=== PATIENT | male | born 1940 | race Hispanic/Latino ===

== ENCOUNTER 2016-08-23 10:52 | Inpatient (IN) | payer MEDICARE ==
[2016-08-23 11:21] LABS: BASO # 0.1 K/uL (0.0-0.2); BASO % 0.6 % (0.0-2.0); EOS # 0.1 K/uL (0.0-0.7); EOS % 0.9 % (0.0-4.0); LYMPH # 0.5 K/uL (1.0-4.3); LYMPH % 5.2 % (20.0-40.0); MEAN CELL VOLUME 95.7 fL (80.0-94.0); MEAN CORPUSCULAR HEMOGLOBIN 31.5 pg (27.0-31.0); MEAN CORPUSCULAR HGB CONC 32.9 g/dL (33.0-37.0); MEAN PLATELET VOLUME 7.9 fL (7.2-11.7); MONO # 1.2 K/uL (0.0-0.8); MONO % 12.2 % (0.0-10.0); NRBC % 0.1 % (0.0-2.0); PLATELET COUNT 189 K/uL (130-400); RED CELL DISTRIBUTION WIDTH 16.8 % (11.5-14.5); WHITE BLOOD COUNT 9.4 K/uL (4.8-10.8)
[2016-08-23 11:38] LABS: CHLORIDE 113 mmol/L (98-107); POTASSIUM 4.7 mmol/L (3.6-5.2); SODIUM 141 mmol/L (132-148)
[2016-08-23 11:40] LABS: BILIRUBIN,TOTAL < 0.1 mg/dL (0.2-1.3); GFR AFRICAN-AMERICAN 9
[2016-08-23 11:41] LABS: ALKALINE PHOSPHATASE 92 U/L (38-126); ALT/SGPT 39 U/L (21-72); AST/SGOT 26 U/L (17-59); CALCIUM 7.7 mg/dl (8.6-10.4); GLUCOSE,RANDOM 91 mg/dL (75-110); TOTAL PROTEIN 7.6 g/dL (6.3-8.3)
--- NOTE | 2016-08-23 11:53 | C.PDOC ---
History Of Present Illness 76-year-old male, presents to the emergency department with complaints of new onset, worsening shortness of breath and dyspnea on exertion since 05/02. Patient notes that symptoms resolve with rest. States he feels better with current O2 use. No associated chest pain. Patient has new onset bilateral leg swelling to knees, that is worse during the day. Patient denies fever. No PMD or prior evaluation. Patient notes a Hx of smoking, but has quit. No current medications. NEW ONSET, WORSENING SOB/RAMIREZ SINCE 04/2016. RESOLVES W REST. FEELS BETTER W CURRENT O2 USE. NO ASSOC CP. +NEW ONSET B/L LEG SWELL TO KNEES, WORSE DURING DAY. NO FEVER, NO PMD NO PRIOR MD KHAN FOR SAME. HO SMOKING, QUIT. NO CURRENT MEDS USE EXAM MOD DIST NONTOXIC R>L RALES TACHYPNEA SPEAKING FULL SENTENCES CV RRR 3+PITTING EDEMA REMAINDER NEG Time Seen by Provider: 08/23/16 11:28 Chief Complaint (Nursing): Shortness Of Breath History Per: Patient History/Exam Limitations: no limitations Past Medical History Reviewed: Historical Data, Nursing Documentation, Vital Signs Vital Signs: Last Vital Signs Temp 97.4 F L 08/23/16 10:57 Pulse 101 H 08/23/16 10:57 Resp 18 08/23/16 12:21 BP 167/70 H 08/23/16 10:57 Pulse Ox 98 08/23/16 13:53 - Medical History PMH: TIA Family History: States: Unknown Family Hx - Social History Hx Alcohol Use: No Hx Substance Use: No Review Of Systems Except As Marked, All Systems Reviewed And Found Negative. Constitutional: Negative for: Fever, Chills Cardiovascular: Positive for: Chest Pain, Edema Respiratory: Positive for: Shortness of Breath Gastrointestinal: Negative for: Nausea, Vomiting Skin: Negative for: Rash Neurological: Negative for: Weakness, Numbness, Headache, Dizziness Physical Exam - Physical Exam Appears: Non-toxic, No Acute Distress Skin: Warm, Dry, No Rash Head: Atraumatic, Normacephalic Eye(s): bilateral: Normal Inspection, PERRL Nose: Normal Oral Mucosa: Moist Lips: Normal Appearing Neck: Normal ROM Cardiovascular: Rhythm Regular, Other Respiratory: Rales, Other (R>L RALES TACHYPNEA SPEAKING FULL SENTENCES) Extremity: Pedal Edema (Edema) Neurological/Psych: Oriented x3, Normal Speech ED Course And Treatment - Laboratory Results Result Diagrams: 08/23/16 11:14 08/23/16 11:14 ECG: Interpreted By Me ECG Rhythm: Sinus Rhythm ECG Interpretation: Normal Rate From EC O2 Sat by Pulse Oximetry: 98 Pulse Ox Interpretation: Normal - Radiology CXR: Interpreted by Me CXR Interpretation: Yes: Other (chf) Progress - Re-Evaluation Re-evaluation Note: 08/23/16 12:39 BLADDER SCAN >1L. PS "I HAVE A PROSTATE PROBLEM". +FREQ URINATION. EXAM UNCH PRIOR. PERSIST TACHYPNEA BUT SPEAKING FULL SENTENCES WO DIFFICULTY ON VAPOTHERM. PENDING CALLBACK NEPHROLOGY 08/23/16 12:49 D/W DR AZRA ALANIS [employer] SUPERINTENDENT WILL CONSULT. REQUESTS ICU EVAL D/W DR SPRINGER WILL EVAL 08/23/16 12:54 D/W DR HSU WILL ADMIT 08/23/16 13:53 ACCEPTED FOR ICU - Data Reviewed Data Reviewed: Lab, Diagnostic imaging, EKG, Old records - Critical Care Citical Care: Excluding Proc Time Critical Care Time: 105 minutes - Continuity of Care Discussed patient case with:: Patient, On-call PMD-pt unassigned Discussed pt. case with senior science consultant/specialty: Nephrology, Pulmonary/Crit. Care Disposition Counseled Patient/Family Regarding: Studies Performed, Diagnosis - Disposition Disposition: HOSPITALIZED Disposition Time: 12:50 Condition: SERIOUS - POA Present On Arrival: None - Clinical Impression Clinical Impression: Renal failure, acute, Urinary retention with incomplete bladder emptying, Dyspnea - Scribe Statement The provider has reviewed the documentation as recorded by the Bob [email or web address] All medical record entries made by the Bob were at my direction and personally dictated by me. I have reviewed the chart and agree that the record accurately reflects my personal performance of the history, physical exam, medical decision making, and the department course for this patient. I have also personally directed, reviewed, and agree with the discharge instructions and disposition. Decision To Admit - Pt Status Changed To: Hospital Disposition Of: Inpatient - Admit Certification Admit to Inpatient:: After my assessment, the patient will require hospitalization for at least two midnights. This is because of the severity of symptoms shown, intensity of services needed, and/or the medical risk in this patient being treated as an outpatient. - InPatient: Physician Admission Certification: I certify that this patient requires 2 or more midnights of care for the following reason:: SEE NOTE - . Bed Request Type: ICU Admitting Physician: Glenna Hsu Patient Diagnosis: Renal failure, acute, Urinary retention with incomplete bladder emptying, Dyspnea
[2016-08-23 12:26] LABS: BLOOD UREA NITROGEN 142 mg/dL (9-20)
[2016-08-23 12:28] LABS: CARBON DIOXIDE 7 mmol/L (22-30)
[2016-08-23 12:49] LABS: EOSINOPHIL 1 % (0-4); MYELOCYTE 1 % (0-0); NEUTROPHIL 84 % (50-75); TOTAL CELLS COUNTED 100
[2016-08-23 13:26] LABS: VENOUS BLOOD GAS BASE EXCESS -19.4 mmol/L (0.0-2.0); VENOUS BLOOD GAS PCO2 26 mmHg (40-60); VENOUS BLOOD PH 7.12 (7.32-7.43)
--- NOTE | 2016-08-23 14:39 | RAD ---
PROCEDURE: CHEST RADIOGRAPH, 1 VIEW HISTORY: SOB COMPARISON: None available. FINDINGS: LUNGS: Patchy bilateral opacities mid and lower lung. PLEURA: No pneumothorax or pleural fluid seen. CARDIOVASCULAR: Normal. OSSEOUS STRUCTURES: No significant abnormalities. VISUALIZED UPPER ABDOMEN: Normal. OTHER FINDINGS: None. IMPRESSION: Bilateral patchy opacities mid and lower lung. Nonspecific.
--- NOTE | 2016-08-23 15:40 | CP.PCM.CON ---
History of Present Illness - History of Present Illness History of Present Illness: 76 yo male, no significant pmhx, hasnt seen and doctor in a while- presents w/ progressive sob x few weeks, dyspneic at rest. also c/o chest discomfort/pressure. Poor urine output x few days, poor stream. Denies any hematuria, kidney stones. No nsaid use. No recent illnesses / hospitalizations/ travel. On presentation, tachypneic, found to be severely acidotic, creatinine 7.2 mg/dl , bun 142. Bladder scan showed urinary retention, cox placed, good uop obtained. Pt to be transferred to icu for closer monitoring PMHx: Denies soc hx: denies etoh/tob/drug. lives by himself family hx: neg for kidney dz allergies: nkda meds: none ROS: + nausea, rest as per hpi. Review of Systems - Review of Systems All systems: reviewed and no additional remarkable complaints except (as per hpi ) Past Patient History - Past Social History Smoking Status: Never Smoked - NEUROLOGICAL Hx Transient Ischemic Attacks (TIA): Yes - PSYCHIATRIC Hx Substance Use: No - SURGICAL HISTORY Hx Surgeries: No Meds Allergies/Adverse Reactions: Allergies Allergy/AdvReac Type Severity Reaction Status Date / Time No Known Allergies Allergy Verified 08/23/16 10:57 Physical Exam - Constitutional Appears: In Acute Distress (mild respiratory distressa), Older Than Stated Age, Chronically Ill - Head Exam Head Exam: NORMAL INSPECTION - Eye Exam Eye Exam: Normal appearance (pallor) - ENT Exam ENT Exam: Mucous Membranes Dry - Neck Exam Neck exam: Positive for: Normal Inspection - Respiratory Exam Respiratory Exam: Rales (tachypneic), Respiratory Distress - Cardiovascular Exam Cardiovascular Exam: RRR - GI/Abdominal Exam GI & Abdominal Exam: Diminished Bowel Sounds, Distended, Soft - Extremities Exam Extremities exam: Positive for: pedal edema (3+) Results - Vital Signs Recent Vital Signs: Last Vital Signs Temp 97.9 F 08/23/16 15:13 Pulse 91 H 08/23/16 15:13 Resp 20 08/23/16 15:13 BP 143/91 H 08/23/16 15:13 Pulse Ox 100 08/23/16 15:13 - Labs Result Diagrams: 08/23/16 11:14 08/23/16 11:14 Assessment & Plan (1) Congestive heart failure Status: Acute (2) Metabolic acidosis Status: Acute (3) Dyspnea Status: Acute (4) Renal failure, acute Status: Acute (5) Urinary retention with incomplete bladder emptying Status: Acute - Assessment and Plan (Free Text) Assessment: # met acidosis # dyspnea: multifactorial. chf / compensation for met acidosis # urinary retention # chf Pln: Urgent hd today, catheter to be placed by icu team renal ultrsound ua, proteinruia echo / cardiac eval / vilma urine tox screen check psa, consider urology eval renal diet pth / phos catarino w/ hd, check iron stores
[2016-08-23 15:55] LABS: RBC URINE 6 /hpf (0-3); URINE BACTERIA OCC (<OCC); URINE BILIRUBIN NEGATIVE (NEGATIVE); URINE BLOOD 1+ (NEGATIVE); URINE COLOR Straw (YELLOW); URINE GLUCOSE (UA) 1+ mg/dL (Normal); URINE KETONE NEGATIVE (NEGATIVE); URINE LEUKOCYTE ESTERASE NEG Leu/uL (Negative); URINE PROTEIN NEGATIVE (NEGATIVE); URINE UROBILINOGEN NORMAL mg/dL (0.2-1.0); WBC URINE 1 /hpf (0-5)
--- NOTE | 2016-08-23 16:16 | CP.PCM.CON ---
<Ravi García - Last Filed: 08/23/16 18:32> Meds Allergies/Adverse Reactions: Allergies Allergy/AdvReac Type Severity Reaction Status Date / Time No Known Allergies Allergy Verified 08/23/16 10:57 - Medications Medications: Current Medications Pneumococcal Polyvalent Vaccine (Pneumovax 23 Vaccine) 0.5 ml IM .ONCE ONE Stop: 08/25/16 16:01 Results - Vital Signs Recent Vital Signs: Last Vital Signs Temp 96.2 F L 08/23/16 16:00 Pulse 85 08/23/16 17:20 Resp 12 08/23/16 17:20 BP 145/79 08/23/16 16:48 Pulse Ox 98 08/23/16 17:20 - Labs Result Diagrams: 08/23/16 11:14 08/23/16 16:02 Labs: Laboratory Results - last 24 hr 08/23/16 08/23/16 08/23/16 15:26 16:02 16:02 PT 13.0 H INR 1.1 APTT 34 Sodium 139 Potassium 4.1 Chloride 112 H Carbon Dioxide 8 L* Anion Gap 23 H BUN 134 H* Creatinine 7.0 H Est GFR ( Amer) 9 Est GFR (Non-Af Amer) 8 Random Glucose 82 Calcium 7.5 L Total Bilirubin 0.5 AST 23 ALT 32 Alkaline Phosphatase 86 Total Protein 7.2 Albumin 3.6 Globulin 3.6 Albumin/Globulin Ratio 1.0 Urine Color Straw Urine Clarity Clear Urine pH 5.0 Ur Specific [place] 1.008 Urine Protein Negative Urine Glucose (UA) 1+ H Urine Ketones Negative Urine Blood 1+ H Urine Nitrate Negative Urine Bilirubin Negative Urine Urobilinogen Normal Ur Leukocyte Esterase Neg Urine WBC (Auto) 1 Urine RBC (Auto) 6 H Ur Squamous Epith Cells < 1 Urine Bacteria Occ H Attending/Attestation - Attestation I have personally seen and examined this patient.: Yes I have fully participated in the care of the patient.: Yes I have reviewed all pertinent clinical information: Yes Notes (Text): 08/23/16 18:13 76-year-old male with no significant past medical history who presented with renal failure of unknown duration The patient has good urine output post Cox catheter placent Catheter placed in right femoral vein under aseptic conditions Hemodialysis Transfuse packed RBCs during hemodialysis <Geovany Knight - Last Filed: 08/23/16 18:50> History of Present Illness - History of Present Illness History of Present Illness: ICU consult note - PGY-1 This is a 76 yo M with no significant PMH and has not seen a doctor since the 's presented to the ED with a chief complaint of sob since April. He states that he came in today because a secretary of police suggested that he seek medical attention for his symptoms. He states that the sob has gotten worse over time and that it is associated with significant b/l LE edema. He has had a cough at times but not consistently. He has had no trouble sleeping at night. Admits to some chest pressure and urinary frequency with decreased urine output. Denies any fevers, chills, chest pain, nausea, vomiting, dysuria, changes in urine color, discharge or kidney stones. He denies taking any medications recently including OTC NSAID use. PMH: Denies PSH: Denies Home meds: Denies Allergies: Denies FH: Denies SH: Denies tobacco, Etoh or drug use. Lives by himself. Review of Systems - Review of Systems All systems: reviewed and no additional remarkable complaints except (where noted in the HPI) Past Patient History - Past Social History Smoking Status: Never Smoked - NEUROLOGICAL Hx Transient Ischemic Attacks (TIA): Yes - PSYCHIATRIC Hx Substance Use: No - SURGICAL HISTORY Hx Surgeries: No Physical Exam - Constitutional Appears: Non-toxic, No Acute Distress - Head Exam Head Exam: ATRAUMATIC, NORMOCEPHALIC - Eye Exam Eye Exam: Normal appearance Pupil Exam: PERRL - ENT Exam ENT Exam: Mucous Membranes Moist - Respiratory Exam Respiratory Exam: Rales (diffuse), NORMAL BREATHING PATTERN - Cardiovascular Exam Cardiovascular Exam: Tachycardia, +S1, +S2 - GI/Abdominal Exam GI & Abdominal Exam: Normal Bowel Sounds, Soft. absent: Distended, Tenderness - Extremities Exam Extremities exam: Positive for: pedal edema (4+ pitting edema that extends up to pts hips bilaterally) - Back Exam Back exam: NORMAL INSPECTION - Neurological Exam Neurological exam: Alert, Oriented x3 - Skin Skin Exam: Dry, Warm Results - Vital Signs Recent Vital Signs: Last Vital Signs Temp 97.9 F 08/23/16 15:13 Pulse 91 H 08/23/16 15:13 Resp 22 08/23/16 15:54 BP 143/91 H 08/23/16 15:13 Pulse Ox 100 08/23/16 15:13 - Labs Result Diagrams: 08/23/16 11:14 08/23/16 16:02 Labs: Laboratory Results - last 24 hr 08/23/16 15:26 Urine Color Straw Urine Clarity Clear Urine pH 5.0 Ur Specific [place] 1.008 Urine Protein Negative Urine Glucose (UA) 1+ H Urine Ketones Negative Urine Blood 1+ H Urine Nitrate Negative Urine Bilirubin Negative Urine Urobilinogen Normal Ur Leukocyte Esterase Neg Urine WBC (Auto) 1 Urine RBC (Auto) 6 H Ur Squamous Epith Cells < 1 Urine Bacteria Occ H Assessment & Plan - Assessment and Plan (Free Text) Assessment: This is a 76 yo M with no significant PMH that presented with sob and found to have metabolic acidosis secondary to acute renal failure with unclear etiology and level of chronicity. Likely due to post-obstructive causes as bladder scan in ED revealed >999cc and >2L drained to cox catheter. Plan: Neuro: AAO x 3 Pulm: Pt saturating well on RA and comfortable. Reports significantly improved SOB. Will continue to monitor CV: Hemodynamically stable, tachycardia resolved. Will continue to monitor Renal: Metabolic acidosis secondary to acute renal failure from likely post- obstructive causes. Cox placed and > 2 L drained. Repeat BMP showed persistent renal failure. Hemodialysis catheter placed for HD today. Nephro following GI: No acute issues Endo: No acute issues, follow up labs Heme: Anemic at 7.6. Will transfuse 2 units of PRBCs during dialysis ID: Afebrile, no leukocytosis. Will continue to monitor
[2016-08-23 16:17] LABS: POTASSIUM 4.1 mmol/L (3.6-5.2)
[2016-08-23 16:18] LABS: BILIRUBIN,TOTAL 0.5 mg/dL (0.2-1.3)
[2016-08-23 16:19] LABS: CALCIUM 7.5 mg/dl (8.6-10.4); TOTAL PROTEIN 7.2 g/dL (6.3-8.3)
[2016-08-23 16:23] LABS: INR 1.1
--- NOTE | 2016-08-23 18:15 | US ---
Limited abdomen/renal ultrasound Indication: Acute renal failure Comparison: None available Findings: The liver measures approximately 17.8 cm in sagittal dimension. Echogenic liver may be seen in setting of hepatic parenchymal disease or fatty infiltration. The main portal vein appears patent with normal directional flow. There is no evidence of intrahepatic ductal dilatation. The common bile duct appears within normal limits of caliber, measuring approximately 7 mm. Gallstones. Question gallbladder wall calcification. There is no evidence of gallbladder-wall thickening or pericholecystic edema. Negative sonographic Back's sign as assessed by the gasoline truck operator. The pancreas was not visualized. The right kidney measures 11.6 x 6.4 x 6.1 cm. Moderate to severe hydronephrosis. No obstructing calculus identified. Echogenic renal parenchyma. The left kidney measures 12.0 x 5.8 x 6.7 cm. Moderate to severe hydronephrosis. No obstructing calculus identified. Echogenic renal parenchyma. Atherosclerosis of the aorta. Limited visualization of the aorta measuring up to 2.4 cm in diameter. Limited visualization of the IVC appears grossly unremarkable. Impression: Cholelithiasis. Question gallbladder wall calcification. Echogenic liver may be seen in setting of hepatic parenchymal disease or fatty infiltration. Bilateral moderate to severe hydronephrosis. Echogenic renal parenchyma bilaterally may be seen in the setting of medical renal disease.
--- NOTE | 2016-08-23 18:58 | CP.PCM.HP ---
<Geovany Knight - Last Filed: 08/23/16 18:51> History of Present Illness - History of Present Illness History of Present Illness: This is a 76 yo M with no significant PMH and has not seen a doctor since the 's presented to the ED with a chief complaint of sob since April. He states that he came in today because a police artist suggested that he seek medical attention for his symptoms. He states that the sob has gotten worse over time and that it is associated with significant b/l LE edema. He has had a cough at times but not consistently. He has had no trouble sleeping at night. Admits to some chest pressure and urinary frequency with decreased urine output. Denies any fevers, chills, chest pain, nausea, vomiting, dysuria, changes in urine color, discharge or kidney stones. He denies taking any medications recently including OTC NSAID use. PMH: Denies PSH: Denies Home meds: Denies Allergies: Denies FH: Denies SH: Denies tobacco, Etoh or drug use. Lives by himself. Present on Admission - Present on Admission Any Indicators Present on Admission: No Review of Systems - Review of Systems All systems: reviewed and no additional remarkable complaints except (where noted in HPI) Past Patient History - Past Medical History & Family History Past Medical History?: No - Past Social History Smoking Status: Never Smoked - NEUROLOGICAL Hx Transient Ischemic Attacks (TIA): Yes - MUSCULOSKELETAL/RHEUMATOLOGICAL Hx Falls: Yes - PSYCHIATRIC Hx Substance Use: No - SURGICAL HISTORY Hx Surgeries: No - ANESTHESIA Hx Anesthesia: No Hx Anesthesia Reactions: No Hx Malignant Hyperthermia: No Has any member of the family had a problem w/ anesthesia?: No Meds Allergies/Adverse Reactions: Allergies Allergy/AdvReac Type Severity Reaction Status Date / Time No Known Allergies Allergy Verified 08/23/16 10:57 Physical Exam - Constitutional Appears: Non-toxic, No Acute Distress - Head Exam Head Exam: ATRAUMATIC, NORMOCEPHALIC - Eye Exam Eye Exam: Normal appearance Pupil Exam: PERRL - ENT Exam ENT Exam: Mucous Membranes Moist - Respiratory Exam Respiratory Exam: Rales (diffuse), NORMAL BREATHING PATTERN - Cardiovascular Exam Cardiovascular Exam: +S1, +S2 - GI/Abdominal Exam GI & Abdominal Exam: Normal Bowel Sounds, Soft. absent: Distended, Tenderness - Extremities Exam Extremities exam: Positive for: pedal edema (4+ pitting edema that extends up to the pts hips bilaterally) - Neurological Exam Neurological exam: Alert, Oriented x3 - Skin Skin Exam: Dry, Warm Results - Vital Signs Recent Vital Signs: Last Vital Signs Temp 96.2 F L 08/23/16 16:00 Pulse 89 08/23/16 18:20 Resp 15 08/23/16 18:20 BP 144/80 08/23/16 17:48 Pulse Ox 99 08/23/16 18:20 - Labs Result Diagrams: 08/23/16 11:14 08/23/16 16:02 Labs: Laboratory Results - last 24 hr 08/23/16 08/23/16 08/23/16 15:26 16:02 16:02 PT 13.0 H INR 1.1 APTT 34 Sodium 139 Potassium 4.1 Chloride 112 H Carbon Dioxide 8 L* Anion Gap 23 H BUN 134 H* Creatinine 7.0 H Est GFR ( Amer) 9 Est GFR (Non-Af Amer) 8 Random Glucose 82 Calcium 7.5 L Total Bilirubin 0.5 AST 23 ALT 32 Alkaline Phosphatase 86 Total Protein 7.2 Albumin 3.6 Globulin 3.6 Albumin/Globulin Ratio 1.0 Urine Color Straw Urine Clarity Clear Urine pH 5.0 Ur Specific [place] 1.008 Urine Protein Negative Urine Glucose (UA) 1+ H Urine Ketones Negative Urine Blood 1+ H Urine Nitrate Negative Urine Bilirubin Negative Urine Urobilinogen Normal Ur Leukocyte Esterase Neg Urine WBC (Auto) 1 Urine RBC (Auto) 6 H Ur Squamous Epith Cells < 1 Urine Bacteria Occ H Assessment & Plan - Assessment and Plan (Free Text) Assessment: This is a 76 yo M with no significant PMH that presented with sob and found to have metabolic acidosis secondary to acute renal failure with unclear etiology and level of chronicity. Likely due to post-obstructive causes as bladder scan in ED revealed >999cc and >2L drained to cox catheter. Plan: Acute renal failure - Cr 7.2 - unknown duration - Likely due to obstructive causes - removed >2 L of urine after cox insertion - Femoral dialysis cath placed on right side, HD tonight - Nephro consulted - help appreciated Metabolic acidosis - secondary to ARF - As per above Shortness of breath - due to metabolic acidosis - less sob now, saturating well, will continue to monitor Anemia - Likely due to kidney injury - Will transfuse 2 units of PRBCs during HD <Jose,Bonifacio M - Last Filed: 08/24/16 14:24> Results - Vital Signs Recent Vital Signs: Last Vital Signs Temp 97.7 F 08/24/16 11:59 Pulse 76 08/24/16 11:10 Resp 9 L 08/24/16 11:10 BP 132/75 08/24/16 10:22 Pulse Ox 99 08/24/16 11:59 - Labs Result Diagrams: 08/24/16 06:03 08/24/16 06:03 Labs: Laboratory Results - last 24 hr 08/23/16 08/23/16 08/23/16 15:26 16:02 16:02 WBC RBC Hgb Hct MCV MCH MCHC RDW Plt Count MPV Neut % (Auto) Lymph % (Auto) [place] % (Auto) Eos % (Auto) Baso % (Auto) Neut # Lymph # [place] # Eos # Baso # Neutrophils % (Manual) Band Neutrophils % Lymphocytes % (Manual) Monocytes % (Manual) Basophils % (Manual) Platelet Estimate Hypochromasia (manual) Poikilocytosis (manual Anisocytosis (manual) Microcytosis (manual) Macrocytosis (manual) Ovalocytes Sergei Cells PT 13.0 H INR 1.1 APTT 34 Sodium 139 Potassium 4.1 Chloride 112 H Carbon Dioxide 8 L* Anion Gap 23 H BUN 134 H* Creatinine 7.0 H Est GFR ( Amer) 9 Est GFR (Non-Af Amer) 8 Random Glucose 82 Calcium 7.5 L Phosphorus Magnesium % Saturation Ferritin Total Bilirubin 0.5 AST 23 ALT 32 Alkaline Phosphatase 86 Total Protein 7.2 Albumin 3.6 Globulin 3.6 Albumin/Globulin Ratio 1.0 Urine Color Straw Urine Clarity Clear Urine pH 5.0 Ur Specific [place] 1.008 Urine Protein Negative Urine Glucose (UA) 1+ H Urine Ketones Negative Urine Blood 1+ H Urine Nitrate Negative Urine Bilirubin Negative Urine Urobilinogen Normal Ur Leukocyte Esterase Neg Urine WBC (Auto) 1 Urine RBC (Auto) 6 H Ur Squamous Epith Cells < 1 Urine Bacteria Occ H Hep Bs Antigen Hep Bs Antibody Hep B Core IgM Ab Hepatitis C Antibody 08/23/16 08/23/16 08/24/16 20:11 20:11 06:03 WBC 7.1 RBC 2.89 L Hgb 8.8 L Hct 26.7 L MCV 92.4 D MCH 30.6 MCHC 33.1 RDW 16.5 H Plt Count 163 MPV 8.6 Neut % (Auto) 75.1 H Lymph % (Auto) 8.2 L [place] % (Auto) 15.0 H Eos % (Auto) 0.9 Baso % (Auto) 0.8 Neut # 5.3 Lymph # 0.6 L [place] # 1.1 H Eos # 0.1 Baso # 0.1 Neutrophils % (Manual) 73 Band Neutrophils % 1 Lymphocytes % (Manual) 10 L Monocytes % (Manual) 15 H Basophils % (Manual) 1 Platelet Estimate Normal Hypochromasia (manual) Slight Poikilocytosis (manual Slight Anisocytosis (manual) Slight Microcytosis (manual) Slight Macrocytosis (manual) Slight Ovalocytes Slight Sergei Cells Slight PT INR APTT Sodium Potassium Chloride Carbon Dioxide Anion Gap BUN Creatinine Est GFR ( Amer) Est GFR (Non-Af Amer) Random Glucose Calcium Phosphorus Magnesium % Saturation Ferritin Total Bilirubin AST ALT Alkaline Phosphatase Total Protein Albumin Globulin Albumin/Globulin Ratio Urine Color Urine Clarity Urine pH Ur Specific [place] Urine Protein Urine Glucose (UA) Urine Ketones Urine Blood Urine Nitrate Urine Bilirubin Urine Urobilinogen Ur Leukocyte Esterase Urine WBC (Auto) Urine RBC (Auto) Ur Squamous Epith Cells Urine Bacteria Hep Bs Antigen Negative Hep Bs Antibody Positive Hep B Core IgM Ab Negative Hepatitis C Antibody Negative 08/24/16 08/24/16 08/24/16 06:03 11:51 11:51 WBC RBC Hgb Hct MCV MCH MCHC RDW Plt Count MPV Neut % (Auto) Lymph % (Auto) [place] % (Auto) Eos % (Auto) Baso % (Auto) Neut # Lymph # [place] # Eos # Baso # Neutrophils % (Manual) Band Neutrophils % Lymphocytes % (Manual) Monocytes % (Manual) Basophils % (Manual) Platelet Estimate Hypochromasia (manual) Poikilocytosis (manual Anisocytosis (manual) Microcytosis (manual) Macrocytosis (manual) Ovalocytes Sergei Cells PT INR APTT Sodium 138 Potassium 3.2 L Chloride 110 H Carbon Dioxide 14 L Anion Gap 17 BUN 103 H* D Creatinine 5.4 H Est GFR ( Amer) 13 Est GFR (Non-Af Amer) 10 Random Glucose 80 Calcium 7.3 L Phosphorus 6.3 H Magnesium 1.6 % Saturation 26 Ferritin 178.0 Total Bilirubin 0.6 AST 15 L D ALT 36 Alkaline Phosphatase 71 Total Protein 6.2 L Albumin 2.8 L D Globulin 3.3 Albumin/Globulin Ratio 0.8 L Urine Color Urine Clarity Urine pH Ur Specific [place] Urine Protein Urine Glucose (UA) Urine Ketones Urine Blood Urine Nitrate Urine Bilirubin Urine Urobilinogen Ur Leukocyte Esterase Urine WBC (Auto) Urine RBC (Auto) Ur Squamous Epith Cells Urine Bacteria Hep Bs Antigen Hep Bs Antibody Hep B Core IgM Ab Hepatitis C Antibody Attending/Attestation - Attestation I have personally seen and examined this patient.: Yes I have fully participated in the care of the patient.: Yes I have reviewed all pertinent clinical information: Yes Notes (Text): 08/24/16 14:22 Patient was seen and examined at bedside at the time of admission Patient is being admitted to ICU Patient will need hemodialysis urgently We will also request urology evaluation for obstructive uropathy Discussed the plan of care with the ICU team. I agree with the above history and physical and assessment/plan by the resident.
--- NOTE | 2016-08-23 19:42 | OP ---
PROCEDURE DATE: 08/23/2016 PROCEDURE: Ishan catheter placement. PREOPERATIVE DIAGNOSIS: Acute renal failure. POSTOPERATIVE DIAGNOSIS: Acute renal failure. Hemodialysis catheter placed. DESCRIPTION OF PROCEDURE: After obtaining consent from the patient explaining risks and benefits, ca theter placed into the right femoral vein under aseptic conditions, local anesthesia without complica tion using Seldinger technique. The patient tolerated the procedure well. No complications. Ravi García MD cc: 9 TT: 08/23/2016 19:41:25 mn
[2016-08-24 06:16] LABS: BASO # 0.1 K/uL (0.0-0.2); BASO % 0.8 % (0.0-2.0); EOS # 0.1 K/uL (0.0-0.7); EOS % 0.9 % (0.0-4.0); HEMATOCRIT 26.7 % (35.0-51.0); LYMPH # 0.6 K/uL (1.0-4.3); LYMPH % 8.2 % (20.0-40.0); MEAN CELL VOLUME 92.4 fL (80.0-94.0); MEAN CORPUSCULAR HEMOGLOBIN 30.6 pg (27.0-31.0); MEAN CORPUSCULAR HGB CONC 33.1 g/dL (33.0-37.0); MEAN PLATELET VOLUME 8.6 fL (7.2-11.7); MONO # 1.1 K/uL (0.0-0.8); PLATELET COUNT 163 K/uL (130-400); RED CELL DISTRIBUTION WIDTH 16.5 % (11.5-14.5); WHITE BLOOD COUNT 7.1 K/uL (4.8-10.8)
[2016-08-24 06:40] LABS: POTASSIUM 3.2 mmol/L (3.6-5.2)
[2016-08-24 06:42] LABS: BILIRUBIN,TOTAL 0.6 mg/dL (0.2-1.3)
[2016-08-24 06:43] LABS: PHOSPHOROUS 6.3 mg/dL (2.5-4.5); TOTAL PROTEIN 6.2 g/dL (6.3-8.3)
[2016-08-24 06:44] LABS: CALCIUM 7.3 mg/dl (8.6-10.4); MAGNESIUM 1.6 mg/dL (1.6-2.3)
[2016-08-24 06:58] LABS: ALB/GLOB RATIO 0.8 (1.0-2.1)
[2016-08-24 09:16] LABS: BASOPHIL 1 % (0-2); TOTAL CELLS COUNTED 100
[2016-08-24 09:17] LABS: NEUTROPHIL 73 % (50-75)
--- NOTE | 2016-08-24 09:30 | CP.PCM.PN ---
Subjective - Date & Time of Evaluation Date of Evaluation: 08/24/16 Time of Evaluation: 09:27 - Subjective Subjective: s/p dialysis 08/23- tolerated well; UF 2000 ml excellent UO with cox. US showed bilateral hydro, but echogenic kidneys Met acidosis improved Feels better now, less dyspneic- still very edematous Objective - Vital Signs/Intake and Output Vital Signs (last 24 hours): Temp Pulse Resp BP Pulse Ox 97.5 F L 81 9 L 133/76 100 08/24/16 04:00 08/24/16 07:20 08/24/16 07:20 08/24/16 07:20 08/24/16 07:20 Intake and Output: 08/24/16 08/24/16 06:59 18:59 Intake Total 1040 Output Total 2690 Balance -1650 - Medications Medications: Current Medications Pneumococcal Polyvalent Vaccine (Pneumovax 23 Vaccine) 0.5 ml IM .ONCE ONE Stop: 08/25/16 16:01 - Labs Labs: 08/24/16 06:03 08/24/16 06:03 PT 13.0 SECONDS (9.7-12.2) H 08/23/16 16:02 INR 1.1 08/23/16 16:02 APTT 34 SECONDS (21-34) 08/23/16 16:02 - Constitutional Appears: No Acute Distress, Chronically Ill - Head Exam Head Exam: ATRAUMATIC, NORMAL INSPECTION - Eye Exam Eye Exam: EOMI, Normal appearance - Neck Exam Neck Exam: Normal Inspection. absent: Tenderness - Respiratory Exam Respiratory Exam: Decreased Breath Sounds, Clear to Ausculation Bilateral, NORMAL BREATHING PATTERN - Cardiovascular Exam Cardiovascular Exam: REGULAR RHYTHM, +S1 - GI/Abdominal Exam GI & Abdominal Exam: Soft. absent: Tenderness - Extremities Exam Extremities Exam: Pedal Edema. absent: Tenderness - Neurological Exam Neurological Exam: Alert, CN II-XII Intact - Skin Skin Exam: Dry, Warm Assessment and Plan (1) Congestive heart failure Status: Acute (2) Metabolic acidosis Status: Acute (3) Renal failure, acute Status: Acute (4) Urinary retention with incomplete bladder emptying Status: Acute - Assessment and Plan (Free Text) Plan: Replete K Add phoslo Check PTH, TSAT Add ESAs Likely dialysis in AM Recommend evaluation
[2016-08-24] MEDS ORDERED: Potassium Chloride 20 mEq ER Tab PO SCH (10:00)
[2016-08-24] MEDS ORDERED: Potassium Chloride 20 mEq/15 ml LIQ UD PO ONE (10:45)
--- NOTE | 2016-08-24 15:29 | CP.CCUPN ---
<Nain Pyle - Last Filed: 08/24/16 15:12> CCU Subjective - Physician Review Subjective (Free Text): 08/24/16 15:[address] Ga Patient seen and examined at the bedside. No acute distress. No acute events overnight. Nursing staff reports no issues. Patient has no complaints this morning. Patient went to HD yesterday. The patient was seen by Dr. Altman as well this morning. No need for additional HD today. Patient is medically stable and will be transferred to telemetry today. On rounds: Dr. Zayas consulted for urology. Critical Care Time Spent (in minutes): 60 CCU Objective - Vital Signs / Intake & Output Vital Signs (Last 4 hours): Vital Signs Temp Pulse Ox 08/24/16 11:59 97.7 F 99 Intake and Output (Last 8hrs): Intake & Output 08/24/16 08/24/16 08/24/16 06:59 14:59 22:59 Intake Total 240 780 Output Total 1350 1100 Balance -1110 -320 Intake: Oral 240 780 Output: Urine 1350 1100 Urethral (Cox) 1350 1100 Stool 0 Emesis 0 - Physical Exam Head: Positive for: Atraumatic, Normocephalic Pupils: Positive for: PERRL Extroacular Muscles: Positive for: EOMI Respiratory/Chest: Positive for: Clear to Auscultation, Good Air Exchange. Negative for: Respiratory Distress, Accessory Muscle Use Cardiovascular: Positive for: Regular Rate and Rhythm, Normal S1, S2. Negative for: Murmurs Abdomen: Positive for: Tenderness, Normal Bowel Sounds. Negative for: Distention, Peritoneal Signs Genitourinary Male: Positive for: Other (cox in place- johnny hematuria) Upper Extremity: Positive for: Normal Inspection. Negative for: Cyanosis, Edema Lower Extremity: Positive for: Normal Inspection. Negative for: Edema Neurological: Positive for: CN II-XII Intact, Speech Normal Skin: Positive for: Warm, Dry, Normal Color. Negative for: Rashes Psychiatric: Positive for: Alert, Oriented x 3 - Medications Active Medications: Active Medications Generic Name Dose Route Start Last Admin Trade Name Freq PRN Reason Stop Dose Admin Calcium Acetate 667 mg 08/24/16 10:00 08/24/16 14:16 Phoslo PO 667 mg TID ROSIBEL Administration Epoetin Gulshan 10,000 unit 08/25/16 09:00 Procrit IV MWF [facility] Pneumococcal Polyvalent Vaccine 0.5 ml 08/25/16 16:00 Pneumovax 23 Vaccine IM 08/25/16 16:01 .ONCE ONE - Patient Studies Lab Studies: Lab Studies 08/24/16 08/24/16 08/24/16 Range/Units 11:51 11:51 06:03 WBC (4.8-10.8) K/uL RBC (4.40-5.90) Mil/uL Hgb (12.0-18.0) g/dL Hct (35.0-51.0) % MCV (80.0-94.0) fL MCH (27.0-31.0) pg MCHC (33.0-37.0) g/dL RDW (11.5-14.5) % Plt Count (130-400) K/uL MPV (7.2-11.7) fL Neut % (Auto) (50.0-75.0) % Lymph % (Auto) (20.0-40.0) % [place] % (Auto) (0.0-10.0) % Eos % (Auto) (0.0-4.0) % Baso % (Auto) (0.0-2.0) % Neut # (1.8-7.0) K/uL Lymph # (1.0-4.3) K/uL [place] # (0.0-0.8) K/uL Eos # (0.0-0.7) K/uL Baso # (0.0-0.2) K/uL Neutrophils % (Manual) (50-75) % Band Neutrophils % (0-2) % Lymphocytes % (Manual) (20-40) % Monocytes % (Manual) (0-10) % Basophils % (Manual) (0-2) % Platelet Estimate (NORMAL) Hypochromasia (manual) Poikilocytosis (manual Anisocytosis (manual) Microcytosis (manual) Macrocytosis (manual) Ovalocytes [place] Cells PT (9.7-12.2) SECONDS INR APTT (21-34) SECONDS Sodium 138 (132-148) mmol/L Potassium 3.2 L (3.6-5.2) mmol/L Chloride 110 H (98-107) mmol/L Carbon Dioxide 14 L (22-30) mmol/L Anion Gap 17 (10-20) BUN 103 H* D (9-20) mg/dL Creatinine 5.4 H (0.8-1.5) MG/DL Est GFR ( Amer) 13 Est GFR (Non-Af Amer) 10 Random Glucose 80 (75-110) mg/dL Calcium 7.3 L (8.6-10.4) mg/dl Phosphorus 6.3 H (2.5-4.5) mg/dL Magnesium 1.6 (1.6-2.3) mg/dL % Saturation 26 (20-55) Ferritin 178.0 ng/mL Total Bilirubin 0.6 (0.2-1.3) mg/dL AST 15 L D (17-59) U/L ALT 36 (21-72) U/L Alkaline Phosphatase 71 (38-126) U/L Total Protein 6.2 L (6.3-8.3) g/dL Albumin 2.8 L D (3.5-5.0) g/dL Globulin 3.3 (2.2-3.9) gm/dL Albumin/Globulin Ratio 0.8 L (1.0-2.1) Urine Color (YELLOW) Urine Clarity (Clear) Urine pH (5.0-8.0) Ur Specific [place] (1.003-1.030) Urine Protein (NEGATIVE) mg/dL Urine Glucose (UA) (Normal) mg/dL Urine Ketones (NEGATIVE) mg/dL Urine Blood (NEGATIVE) Urine Nitrate (NEGATIVE) Urine Bilirubin (NEGATIVE) Urine Urobilinogen (0.2-1.0) mg/dL Ur Leukocyte Esterase (Negative) [place]/uL Urine WBC (Auto) (0-5) /hpf Urine RBC (Auto) (0-3) /hpf Ur Squamous Epith Cells (0-5) /hpf Urine Bacteria (<OCC) Hep Bs Antigen (NEGATIVE) Hep Bs Antibody (NEGATIVE) Hep B Core IgM Ab (NEGATIVE) Hepatitis C Antibody (NEGATIVE) 08/24/16 08/23/16 08/23/16 Range/Units 06:03 20:11 20:11 WBC 7.1 (4.8-10.8) K/uL RBC 2.89 L (4.40-5.90) Mil/uL Hgb 8.8 L (12.0-18.0) g/dL Hct 26.7 L (35.0-51.0) % MCV 92.4 D (80.0-94.0) fL MCH 30.6 (27.0-31.0) pg MCHC 33.1 (33.0-37.0) g/dL RDW 16.5 H (11.5-14.5) % Plt Count 163 (130-400) K/uL MPV 8.6 (7.2-11.7) fL Neut % (Auto) 75.1 H (50.0-75.0) % Lymph % (Auto) 8.2 L (20.0-40.0) % [place] % (Auto) 15.0 H (0.0-10.0) % Eos % (Auto) 0.9 (0.0-4.0) % Baso % (Auto) 0.8 (0.0-2.0) % Neut # 5.3 (1.8-7.0) K/uL Lymph # 0.6 L (1.0-4.3) K/uL [place] # 1.1 H (0.0-0.8) K/uL Eos # 0.1 (0.0-0.7) K/uL Baso # 0.1 (0.0-0.2) K/uL Neutrophils % (Manual) 73 (50-75) % Band Neutrophils % 1 (0-2) % Lymphocytes % (Manual) 10 L (20-40) % Monocytes % (Manual) 15 H (0-10) % Basophils % (Manual) 1 (0-2) % Platelet Estimate Normal (NORMAL) Hypochromasia (manual) Slight Poikilocytosis (manual Slight Anisocytosis (manual) Slight Microcytosis (manual) Slight Macrocytosis (manual) Slight Ovalocytes Slight [place] Cells Slight PT (9.7-12.2) SECONDS INR APTT (21-34) SECONDS Sodium (132-148) mmol/L Potassium (3.6-5.2) mmol/L Chloride (98-107) mmol/L Carbon Dioxide (22-30) mmol/L Anion Gap (10-20) BUN (9-20) mg/dL Creatinine (0.8-1.5) MG/DL Est GFR ( Amer) Est GFR (Non-Af Amer) Random Glucose (75-110) mg/dL Calcium (8.6-10.4) mg/dl Phosphorus (2.5-4.5) mg/dL Magnesium (1.6-2.3) mg/dL % Saturation (20-55) Ferritin ng/mL Total Bilirubin (0.2-1.3) mg/dL AST (17-59) U/L ALT (21-72) U/L Alkaline Phosphatase (38-126) U/L Total Protein (6.3-8.3) g/dL Albumin (3.5-5.0) g/dL Globulin (2.2-3.9) gm/dL Albumin/Globulin Ratio (1.0-2.1) Urine Color (YELLOW) Urine Clarity (Clear) Urine pH (5.0-8.0) Ur Specific [place] (1.003-1.030) Urine Protein (NEGATIVE) mg/dL Urine Glucose (UA) (Normal) mg/dL Urine Ketones (NEGATIVE) mg/dL Urine Blood (NEGATIVE) Urine Nitrate (NEGATIVE) Urine Bilirubin (NEGATIVE) Urine Urobilinogen (0.2-1.0) mg/dL Ur Leukocyte Esterase (Negative) [place]/uL Urine WBC (Auto) (0-5) /hpf Urine RBC (Auto) (0-3) /hpf Ur Squamous Epith Cells (0-5) /hpf Urine Bacteria (<OCC) Hep Bs Antigen Negative (NEGATIVE) Hep Bs Antibody Positive (NEGATIVE) Hep B Core IgM Ab Negative (NEGATIVE) Hepatitis C Antibody Negative (NEGATIVE) 08/23/16 08/23/16 08/23/16 Range/Units 16:02 16:02 15:26 WBC (4.8-10.8) K/uL RBC (4.40-5.90) Mil/uL Hgb (12.0-18.0) g/dL Hct (35.0-51.0) % MCV (80.0-94.0) fL MCH (27.0-31.0) pg MCHC (33.0-37.0) g/dL RDW (11.5-14.5) % Plt Count (130-400) K/uL MPV (7.2-11.7) fL Neut % (Auto) (50.0-75.0) % Lymph % (Auto) (20.0-40.0) % [place] % (Auto) (0.0-10.0) % Eos % (Auto) (0.0-4.0) % Baso % (Auto) (0.0-2.0) % Neut # (1.8-7.0) K/uL Lymph # (1.0-4.3) K/uL [place] # (0.0-0.8) K/uL Eos # (0.0-0.7) K/uL Baso # (0.0-0.2) K/uL Neutrophils % (Manual) (50-75) % Band Neutrophils % (0-2) % Lymphocytes % (Manual) (20-40) % Monocytes % (Manual) (0-10) % Basophils % (Manual) (0-2) % Platelet Estimate (NORMAL) Hypochromasia (manual) Poikilocytosis (manual Anisocytosis (manual) Microcytosis (manual) Macrocytosis (manual) Ovalocytes [place] Cells PT 13.0 H (9.7-12.2) SECONDS INR 1.1 APTT 34 (21-34) SECONDS Sodium 139 (132-148) mmol/L Potassium 4.1 (3.6-5.2) mmol/L Chloride 112 H (98-107) mmol/L Carbon Dioxide 8 L* (22-30) mmol/L Anion Gap 23 H (10-20) BUN 134 H* (9-20) mg/dL Creatinine 7.0 H (0.8-1.5) MG/DL Est GFR ( Amer) 9 Est GFR (Non-Af Amer) 8 Random Glucose 82 (75-110) mg/dL Calcium 7.5 L (8.6-10.4) mg/dl Phosphorus (2.5-4.5) mg/dL Magnesium (1.6-2.3) mg/dL % Saturation (20-55) Ferritin ng/mL Total Bilirubin 0.5 (0.2-1.3) mg/dL AST 23 (17-59) U/L ALT 32 (21-72) U/L Alkaline Phosphatase 86 (38-126) U/L Total Protein 7.2 (6.3-8.3) g/dL Albumin 3.6 (3.5-5.0) g/dL Globulin 3.6 (2.2-3.9) gm/dL Albumin/Globulin Ratio 1.0 (1.0-2.1) Urine Color Straw (YELLOW) Urine Clarity Clear (Clear) Urine pH 5.0 (5.0-8.0) Ur Specific [place] 1.008 (1.003-1.030) Urine Protein Negative (NEGATIVE) mg/dL Urine Glucose (UA) 1+ H (Normal) mg/dL Urine Ketones Negative (NEGATIVE) mg/dL Urine Blood 1+ H (NEGATIVE) Urine Nitrate Negative (NEGATIVE) Urine Bilirubin Negative (NEGATIVE) Urine Urobilinogen Normal (0.2-1.0) mg/dL Ur Leukocyte Esterase Neg (Negative) [place]/uL Urine WBC (Auto) 1 (0-5) /hpf Urine RBC (Auto) 6 H (0-3) /hpf Ur Squamous Epith Cells < 1 (0-5) /hpf Urine Bacteria Occ H (<OCC) Hep Bs Antigen (NEGATIVE) Hep Bs Antibody (NEGATIVE) Hep B Core IgM Ab (NEGATIVE) Hepatitis C Antibody (NEGATIVE) Laboratory Results - last 24 hr 08/23/16 08/23/16 08/23/16 15:26 16:02 16:02 WBC RBC Hgb Hct MCV MCH MCHC RDW Plt Count MPV Neut % (Auto) Lymph % (Auto) [place] % (Auto) Eos % (Auto) Baso % (Auto) Neut # Lymph # [place] # Eos # Baso # Neutrophils % (Manual) Band Neutrophils % Lymphocytes % (Manual) Monocytes % (Manual) Basophils % (Manual) Platelet Estimate Hypochromasia (manual) Poikilocytosis (manual Anisocytosis (manual) Microcytosis (manual) Macrocytosis (manual) Ovalocytes Sergei Cells PT 13.0 H INR 1.1 APTT 34 Sodium 139 Potassium 4.1 Chloride 112 H Carbon Dioxide 8 L* Anion Gap 23 H BUN 134 H* Creatinine 7.0 H Est GFR ( Amer) 9 Est GFR (Non-Af Amer) 8 Random Glucose 82 Calcium 7.5 L Phosphorus Magnesium % Saturation Ferritin Total Bilirubin 0.5 AST 23 ALT 32 Alkaline Phosphatase 86 Total Protein 7.2 Albumin 3.6 Globulin 3.6 Albumin/Globulin Ratio 1.0 Urine Color Straw Urine Clarity Clear Urine pH 5.0 Ur Specific [place] 1.008 Urine Protein Negative Urine Glucose (UA) 1+ H Urine Ketones Negative Urine Blood 1+ H Urine Nitrate Negative Urine Bilirubin Negative Urine Urobilinogen Normal Ur Leukocyte Esterase Neg Urine WBC (Auto) 1 Urine RBC (Auto) 6 H Ur Squamous Epith Cells < 1 Urine Bacteria Occ H Hep Bs Antigen Hep Bs Antibody Hep B Core IgM Ab Hepatitis C Antibody 08/23/16 08/23/16 08/24/16 20:11 20:11 06:03 WBC 7.1 RBC 2.89 L Hgb 8.8 L Hct 26.7 L MCV 92.4 D MCH 30.6 MCHC 33.1 RDW 16.5 H Plt Count 163 MPV 8.6 Neut % (Auto) 75.1 H Lymph % (Auto) 8.2 L [place] % (Auto) 15.0 H Eos % (Auto) 0.9 Baso % (Auto) 0.8 Neut # 5.3 Lymph # 0.6 L [place] # 1.1 H Eos # 0.1 Baso # 0.1 Neutrophils % (Manual) 73 Band Neutrophils % 1 Lymphocytes % (Manual) 10 L Monocytes % (Manual) 15 H Basophils % (Manual) 1 Platelet Estimate Normal Hypochromasia (manual) Slight Poikilocytosis (manual Slight Anisocytosis (manual) Slight Microcytosis (manual) Slight Macrocytosis (manual) Slight Ovalocytes Slight Sergei Cells Slight PT INR APTT Sodium Potassium Chloride Carbon Dioxide Anion Gap BUN Creatinine Est GFR ( Amer) Est GFR (Non-Af Amer) Random Glucose Calcium Phosphorus Magnesium % Saturation Ferritin Total Bilirubin AST ALT Alkaline Phosphatase Total Protein Albumin Globulin Albumin/Globulin Ratio Urine Color Urine Clarity Urine pH Ur Specific [place] Urine Protein Urine Glucose (UA) Urine Ketones Urine Blood Urine Nitrate Urine Bilirubin Urine Urobilinogen Ur Leukocyte Esterase Urine WBC (Auto) Urine RBC (Auto) Ur Squamous Epith Cells Urine Bacteria Hep Bs Antigen Negative Hep Bs Antibody Positive Hep B Core IgM Ab Negative Hepatitis C Antibody Negative 08/24/16 08/24/16 08/24/16 06:03 11:51 11:51 WBC RBC Hgb Hct MCV MCH MCHC RDW Plt Count MPV Neut % (Auto) Lymph % (Auto) [place] % (Auto) Eos % (Auto) Baso % (Auto) Neut # Lymph # [place] # Eos # Baso # Neutrophils % (Manual) Band Neutrophils % Lymphocytes % (Manual) Monocytes % (Manual) Basophils % (Manual) Platelet Estimate Hypochromasia (manual) Poikilocytosis (manual Anisocytosis (manual) Microcytosis (manual) Macrocytosis (manual) Ovalocytes Sergei Cells PT INR APTT Sodium 138 Potassium 3.2 L Chloride 110 H Carbon Dioxide 14 L Anion Gap 17 BUN 103 H* D Creatinine 5.4 H Est GFR ( Amer) 13 Est GFR (Non-Af Amer) 10 Random Glucose 80 Calcium 7.3 L Phosphorus 6.3 H Magnesium 1.6 % Saturation 26 Ferritin 178.0 Total Bilirubin 0.6 AST 15 L D ALT 36 Alkaline Phosphatase 71 Total Protein 6.2 L Albumin 2.8 L D Globulin 3.3 Albumin/Globulin Ratio 0.8 L Urine Color Urine Clarity Urine pH Ur Specific [place] Urine Protein Urine Glucose (UA) Urine Ketones Urine Blood Urine Nitrate Urine Bilirubin Urine Urobilinogen Ur Leukocyte Esterase Urine WBC (Auto) Urine RBC (Auto) Ur Squamous Epith Cells Urine Bacteria Hep Bs Antigen Hep Bs Antibody Hep B Core IgM Ab Hepatitis C Antibody Review of Systems - Review of Systems All systems: reviewed and no additional remarkable complaints except - EENT Eyes: absent: Blind Spots, Blurred Vision Ears: absent: Tinnitus Nose/Mouth/Throat: absent: Facial Pain, Neck Pain - Cardiovascular Cardiovascular: absent: Chest Pain, Syncope - Respiratory Respiratory: absent: Cough, Dyspnea, Dyspnea on Exertion - Gastrointestinal Gastrointestinal: absent: Abdominal Pain, Constipation, Nausea, Vomiting - Genitourinary Genitourinary: Hematuria - Musculoskeletal Musculoskeletal: absent: Tingling - Integumentary Integumentary: absent: Lesions, Rash, Wounds - Neurological Neurological: absent: Sensory Deficit, Syncope, Tingling, Tremor, Vertigo - Endocrine Endocrine: absent: Cold Intolorance, Heat Intolorance, Polyphagia Critical Care Progress Note - Nutrition Nutrition: Nutrition Category Date Time Status Renal Diet [DIET] Diets 08/24/16 Breakfast Active Assessment/Plan (1) Hematuria Current Visit: Yes Status: Acute (2) Renal failure, acute Current Visit: Yes Status: Acute (3) Urinary retention with incomplete bladder emptying Current Visit: Yes Status: Acute - Assessment and Plan (Free Text) Assessment: This is a 76 yo M with no significant PMH that presented with sob and found to have metabolic acidosis secondary to acute renal failure with unclear etiology and level of chronicity. Likely due to post-obstructive causes as bladder scan in ED revealed >999cc and >2L drained to cox catheter 08/23/16. Plan: Neuro: AOx3 No acute issues Cardiovascular: Cardiac Stable Pulmonary: Saturating well No respiratory distress SOB resolved Gastrointestinal: continue renal diet No issues Hematology: hemodynamically stable Endocrine: No acute issues Renal: ESRD -HD yesterday Dr. 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 Zayas (urology) consulted Infectious Disease: No issues Psych: No issues GI Prophylaxis: None DVT Prophylaxis: None Case discussed with Dr. Harmeet Pyle PGY1 - Date & Time Date: 08/24/16 Time: 15:36 <Michelle Bradshaw - Last Filed: 08/24/16 16:34> CCU Objective - Vital Signs / Intake & Output Intake and Output (Last 8hrs): Intake & Output 08/24/16 08/24/16 08/24/16 06:59 14:59 22:59 Intake Total 240 780 Output Total 1350 1100 Balance -1110 -320 Intake: Oral 240 780 Output: Urine 1350 1100 Urethral (Cox) 1350 1100 Stool 0 Emesis 0 - Medications Active Medications: Active Medications Generic Name Dose Route Start Last Admin Trade Name Freq PRN Reason Stop Dose Admin Calcium Acetate 667 mg 08/24/16 10:00 08/24/16 14:16 Phoslo PO 667 mg TID ROSIBEL Administration Epoetin Gulshan 10,000 unit 08/25/16 09:00 Procrit IV MWF ROSIBEL Pneumococcal Polyvalent Vaccine 0.5 ml 08/25/16 16:00 Pneumovax 23 Vaccine IM 08/25/16 16:01 .ONCE ONE - Patient Studies Lab Studies: Lab Studies 08/24/16 08/24/16 08/24/16 Range/Units 11:51 11:51 06:03 WBC (4.8-10.8) K/uL RBC (4.40-5.90) Mil/uL Hgb (12.0-18.0) g/dL Hct (35.0-51.0) % MCV (80.0-94.0) fL MCH (27.0-31.0) pg MCHC (33.0-37.0) g/dL RDW (11.5-14.5) % Plt Count (130-400) K/uL MPV (7.2-11.7) fL Neut % (Auto) (50.0-75.0) % Lymph % (Auto) (20.0-40.0) % [place] % (Auto) (0.0-10.0) % Eos % (Auto) (0.0-4.0) % Baso % (Auto) (0.0-2.0) % Neut # (1.8-7.0) K/uL Lymph # (1.0-4.3) K/uL [place] # (0.0-0.8) K/uL Eos # (0.0-0.7) K/uL Baso # (0.0-0.2) K/uL Neutrophils % (Manual) (50-75) % Band Neutrophils % (0-2) % Lymphocytes % (Manual) (20-40) % Monocytes % (Manual) (0-10) % Basophils % (Manual) (0-2) % Platelet Estimate (NORMAL) Hypochromasia (manual) Poikilocytosis (manual Anisocytosis (manual) Microcytosis (manual) Macrocytosis (manual) Ovalocytes [place] Cells PT (9.7-12.2) SECONDS INR APTT (21-34) SECONDS Sodium 138 (132-148) mmol/L Potassium 3.2 L (3.6-5.2) mmol/L Chloride 110 H (98-107) mmol/L Carbon Dioxide 14 L (22-30) mmol/L Anion Gap 17 (10-20) BUN 103 H* D (9-20) mg/dL Creatinine 5.4 H (0.8-1.5) MG/DL Est GFR ( Amer) 13 Est GFR (Non-Af Amer) 10 Random Glucose 80 (75-110) mg/dL Calcium 7.3 L (8.6-10.4) mg/dl Phosphorus 6.3 H (2.5-4.5) mg/dL Magnesium 1.6 (1.6-2.3) mg/dL % Saturation 26 (20-55) Ferritin 178.0 ng/mL Total Bilirubin 0.6 (0.2-1.3) mg/dL AST 15 L D (17-59) U/L ALT 36 (21-72) U/L Alkaline Phosphatase 71 (38-126) U/L Total Protein 6.2 L (6.3-8.3) g/dL Albumin 2.8 L D (3.5-5.0) g/dL Globulin 3.3 (2.2-3.9) gm/dL Albumin/Globulin Ratio 0.8 L (1.0-2.1) Hep Bs Antigen (NEGATIVE) Hep Bs Antibody (NEGATIVE) Hep B Core IgM Ab (NEGATIVE) Hepatitis C Antibody (NEGATIVE) 08/24/16 08/23/16 08/23/16 Range/Units 06:03 20:11 20:11 WBC 7.1 (4.8-10.8) K/uL RBC 2.89 L (4.40-5.90) Mil/uL Hgb 8.8 L (12.0-18.0) g/dL Hct 26.7 L (35.0-51.0) % MCV 92.4 D (80.0-94.0) fL MCH 30.6 (27.0-31.0) pg MCHC 33.1 (33.0-37.0) g/dL RDW 16.5 H (11.5-14.5) % Plt Count 163 (130-400) K/uL MPV 8.6 (7.2-11.7) fL Neut % (Auto) 75.1 H (50.0-75.0) % Lymph % (Auto) 8.2 L (20.0-40.0) % [place] % (Auto) 15.0 H (0.0-10.0) % Eos % (Auto) 0.9 (0.0-4.0) % Baso % (Auto) 0.8 (0.0-2.0) % Neut # 5.3 (1.8-7.0) K/uL Lymph # 0.6 L (1.0-4.3) K/uL [place] # 1.1 H (0.0-0.8) K/uL Eos # 0.1 (0.0-0.7) K/uL Baso # 0.1 (0.0-0.2) K/uL Neutrophils % (Manual) 73 (50-75) % Band Neutrophils % 1 (0-2) % Lymphocytes % (Manual) 10 L (20-40) % Monocytes % (Manual) 15 H (0-10) % Basophils % (Manual) 1 (0-2) % Platelet Estimate Normal (NORMAL) Hypochromasia (manual) Slight Poikilocytosis (manual Slight Anisocytosis (manual) Slight Microcytosis (manual) Slight Macrocytosis (manual) Slight Ovalocytes Slight [place] Cells Slight PT (9.7-12.2) SECONDS INR APTT (21-34) SECONDS Sodium (132-148) mmol/L Potassium (3.6-5.2) mmol/L Chloride (98-107) mmol/L Carbon Dioxide (22-30) mmol/L Anion Gap (10-20) BUN (9-20) mg/dL Creatinine (0.8-1.5) MG/DL Est GFR ( Amer) Est GFR (Non-Af Amer) Random Glucose (75-110) mg/dL Calcium (8.6-10.4) mg/dl Phosphorus (2.5-4.5) mg/dL Magnesium (1.6-2.3) mg/dL % Saturation (20-55) Ferritin ng/mL Total Bilirubin (0.2-1.3) mg/dL AST (17-59) U/L ALT (21-72) U/L Alkaline Phosphatase (38-126) U/L Total Protein (6.3-8.3) g/dL Albumin (3.5-5.0) g/dL Globulin (2.2-3.9) gm/dL Albumin/Globulin Ratio (1.0-2.1) Hep Bs Antigen Negative (NEGATIVE) Hep Bs Antibody Positive (NEGATIVE) Hep B Core IgM Ab Negative (NEGATIVE) Hepatitis C Antibody Negative (NEGATIVE) 08/23/16 08/23/16 Range/Units 16:02 16:02 WBC (4.8-10.8) K/uL RBC (4.40-5.90) Mil/uL Hgb (12.0-18.0) g/dL Hct (35.0-51.0) % MCV (80.0-94.0) fL MCH (27.0-31.0) pg MCHC (33.0-37.0) g/dL RDW (11.5-14.5) % Plt Count (130-400) K/uL MPV (7.2-11.7) fL Neut % (Auto) (50.0-75.0) % Lymph % (Auto) (20.0-40.0) % [place] % (Auto) (0.0-10.0) % Eos % (Auto) (0.0-4.0) % Baso % (Auto) (0.0-2.0) % Neut # (1.8-7.0) K/uL Lymph # (1.0-4.3) K/uL [place] # (0.0-0.8) K/uL Eos # (0.0-0.7) K/uL Baso # (0.0-0.2) K/uL Neutrophils % (Manual) (50-75) % Band Neutrophils % (0-2) % Lymphocytes % (Manual) (20-40) % Monocytes % (Manual) (0-10) % Basophils % (Manual) (0-2) % Platelet Estimate (NORMAL) Hypochromasia (manual) Poikilocytosis (manual Anisocytosis (manual) Microcytosis (manual) Macrocytosis (manual) Ovalocytes Sergei Cells PT 13.0 H (9.7-12.2) SECONDS INR 1.1 APTT 34 (21-34) SECONDS Sodium 139 (132-148) mmol/L Potassium 4.1 (3.6-5.2) mmol/L Chloride 112 H (98-107) mmol/L Carbon Dioxide 8 L* (22-30) mmol/L Anion Gap 23 H (10-20) BUN 134 H* (9-20) mg/dL Creatinine 7.0 H (0.8-1.5) MG/DL Est GFR ( Amer) 9 Est GFR (Non-Af Amer) 8 Random Glucose 82 (75-110) mg/dL Calcium 7.5 L (8.6-10.4) mg/dl Phosphorus (2.5-4.5) mg/dL Magnesium (1.6-2.3) mg/dL % Saturation (20-55) Ferritin ng/mL Total Bilirubin 0.5 (0.2-1.3) mg/dL AST 23 (17-59) U/L ALT 32 (21-72) U/L Alkaline Phosphatase 86 (38-126) U/L Total Protein 7.2 (6.3-8.3) g/dL Albumin 3.6 (3.5-5.0) g/dL Globulin 3.6 (2.2-3.9) gm/dL Albumin/Globulin Ratio 1.0 (1.0-2.1) Hep Bs Antigen (NEGATIVE) Hep Bs Antibody (NEGATIVE) Hep B Core IgM Ab (NEGATIVE) Hepatitis C Antibody (NEGATIVE) Laboratory Results - last 24 hr 08/23/16 08/23/16 08/23/16 16:02 16:02 20:11 WBC RBC Hgb Hct MCV MCH MCHC RDW Plt Count MPV Neut % (Auto) Lymph % (Auto) [place] % (Auto) Eos % (Auto) Baso % (Auto) Neut # Lymph # [place] # Eos # Baso # Neutrophils % (Manual) Band Neutrophils % Lymphocytes % (Manual) Monocytes % (Manual) Basophils % (Manual) Platelet Estimate Hypochromasia (manual) Poikilocytosis (manual Anisocytosis (manual) Microcytosis (manual) Macrocytosis (manual) Ovalocytes [place] Cells PT 13.0 H INR 1.1 APTT 34 Sodium 139 Potassium 4.1 Chloride 112 H Carbon Dioxide 8 L* Anion Gap 23 H BUN 134 H* Creatinine 7.0 H Est GFR ( Amer) 9 Est GFR (Non-Af Amer) 8 Random Glucose 82 Calcium 7.5 L Phosphorus Magnesium % Saturation Ferritin Total Bilirubin 0.5 AST 23 ALT 32 Alkaline Phosphatase 86 Total Protein 7.2 Albumin 3.6 Globulin 3.6 Albumin/Globulin Ratio 1.0 Hep Bs Antigen Negative Hep Bs Antibody Hep B Core IgM Ab Negative Hepatitis C Antibody Negative 08/23/16 08/24/16 08/24/16 20:11 06:03 06:03 WBC 7.1 RBC 2.89 L Hgb 8.8 L Hct 26.7 L MCV 92.4 D MCH 30.6 MCHC 33.1 RDW 16.5 H Plt Count 163 MPV 8.6 Neut % (Auto) 75.1 H Lymph % (Auto) 8.2 L [place] % (Auto) 15.0 H Eos % (Auto) 0.9 Baso % (Auto) 0.8 Neut # 5.3 Lymph # 0.6 L [place] # 1.1 H Eos # 0.1 Baso # 0.1 Neutrophils % (Manual) 73 Band Neutrophils % 1 Lymphocytes % (Manual) 10 L Monocytes % (Manual) 15 H Basophils % (Manual) 1 Platelet Estimate Normal Hypochromasia (manual) Slight Poikilocytosis (manual Slight Anisocytosis (manual) Slight Microcytosis (manual) Slight Macrocytosis (manual) Slight Ovalocytes Slight [place] Cells Slight PT INR APTT Sodium 138 Potassium 3.2 L Chloride 110 H Carbon Dioxide 14 L Anion Gap 17 BUN 103 H* D Creatinine 5.4 H Est GFR ( Amer) 13 Est GFR (Non-Af Amer) 10 Random Glucose 80 Calcium 7.3 L Phosphorus 6.3 H Magnesium 1.6 % Saturation Ferritin Total Bilirubin 0.6 AST 15 L D ALT 36 Alkaline Phosphatase 71 Total Protein 6.2 L Albumin 2.8 L D Globulin 3.3 Albumin/Globulin Ratio 0.8 L Hep Bs Antigen Hep Bs Antibody Positive Hep B Core IgM Ab Hepatitis C Antibody 08/24/16 08/24/16 11:51 11:51 WBC RBC Hgb Hct MCV MCH MCHC RDW Plt Count MPV Neut % (Auto) Lymph % (Auto) [place] % (Auto) Eos % (Auto) Baso % (Auto) Neut # Lymph # [place] # Eos # Baso # Neutrophils % (Manual) Band Neutrophils % Lymphocytes % (Manual) Monocytes % (Manual) Basophils % (Manual) Platelet Estimate Hypochromasia (manual) Poikilocytosis (manual Anisocytosis (manual) Microcytosis (manual) Macrocytosis (manual) Ovalocytes [place] Cells PT INR APTT Sodium Potassium Chloride Carbon Dioxide Anion Gap BUN Creatinine Est GFR ( Amer) Est GFR (Non-Af Amer) Random Glucose Calcium Phosphorus Magnesium % Saturation 26 Ferritin 178.0 Total Bilirubin AST ALT Alkaline Phosphatase Total Protein Albumin Globulin Albumin/Globulin Ratio Hep Bs Antigen Hep Bs Antibody Hep B Core IgM Ab Hepatitis C Antibody Critical Care Progress Note - Nutrition Nutrition: Nutrition Category Date Time Status Renal Diet [DIET] Diets 08/24/16 Breakfast Active Attending/Attestation - Attestation I have personally seen and examined this patient.: Yes I have fully participated in the care of the patient.: Yes I have reviewed all pertinent clinical information: Yes Notes (Text): 08/24/16 16:30 Patient seen and examined in the morning, doing well, breathing comfortably on room air while lying flat. Admitted last night with volume overload due to acute renal failure requiring dialysis. Urine retention, over one litter of urine after placement of cox catheter, ecogenic kidneys. Most likely ARF on chronic renal failure due to obstruction of uretra. Breathing well after dialysis. Spoke to Dr. Zayas to consult on the patient. OK for transfer to the floors.
--- NOTE | 2016-08-24 16:29 | CP.PCM.PN ---
Subjective - Date & Time of Evaluation Date of Evaluation: 08/24/16 Time of Evaluation: 14:00 - Subjective Subjective: Patient was seen and examined in ICU. States that he is feeling better Status post hemodialysis yesterday Objective - Vital Signs/Intake and Output Vital Signs (last 24 hours): Temp Pulse Resp BP Pulse Ox 97.7 F 76 9 L 132/75 99 08/24/16 11:59 08/24/16 11:10 08/24/16 11:10 08/24/16 10:22 08/24/16 11:59 Intake and Output: 08/24/16 08/24/16 06:59 18:59 Intake Total 1040 780 Output Total 2690 1100 Balance -1650 -320 - Medications Medications: Current Medications Calcium Acetate (Phoslo) 667 mg PO TID [facility] Last Admin: 08/24/16 14:16 Dose: 667 mg Epoetin Gulshan (Procrit) 10,[address] [facility] Pneumococcal Polyvalent Vaccine (Pneumovax 23 Vaccine) 0.5 ml IM .ONCE ONE Stop: 08/25/16 16:01 - Labs Labs: 08/24/16 06:03 08/24/16 06:03 PT 13.0 SECONDS (9.7-12.2) H 08/23/16 16:02 INR 1.1 08/23/16 16:02 APTT 34 SECONDS (21-34) 08/23/16 16:02 - Head Exam Head Exam: ATRAUMATIC, NORMOCEPHALIC - Eye Exam Eye Exam: Normal appearance - ENT Exam ENT Exam: Mucous Membranes Moist - Neck Exam Neck Exam: Normal Inspection - Respiratory Exam Respiratory Exam: Clear to Ausculation Bilateral - Cardiovascular Exam Cardiovascular Exam: REGULAR RHYTHM, +S1, +S2 - GI/Abdominal Exam GI & Abdominal Exam: Soft. absent: Tenderness - Extremities Exam Extremities Exam: Pedal Edema - Neurological Exam Neurological Exam: Alert, Oriented x3 Assessment and Plan (1) Congestive heart failure Status: Acute (2) Dyspnea Status: Acute (3) Hematuria Status: Acute (4) Metabolic acidosis Status: Acute (5) Renal failure, acute Status: Acute (6) Urinary retention with incomplete bladder emptying Status: Acute - Assessment and Plan (Free Text) Plan: Continue hemodialysis as per recommendation of nephrology.. Plan for hemodialysis tomorrow Metabolic acidosis improved after dialysis. Shortness of breath is also improving We will request urology evaluation because of obstructive uropathy. Discussed the plan of care with the ICU team
[2016-08-24] MEDS: Piperacill/Tazo 2.25gm in Dex 2.25 GM/50 ML BAG IVPB SCH (17:53)
--- NOTE | 2016-08-24 18:46 | CP.PCM.PN ---
Subjective - Date & Time of Evaluation Date of Evaluation: 08/24/16 Time of Evaluation: 18:46 - Subjective Subjective: 76 year old male admitted with renal failure pt has been dialezed US shows Bilat [place]. Cox is in place bladder was found to have Large Post void Risidual. A Renal Failure secondary to chronic obstructive uropathy. Suggest Leave cox, CT scan abdomen pelvid,PSA. Pt should have cystoscopic evaluation when renal function maximally improved. Marquez Objective - Vital Signs/Intake and Output Vital Signs (last 24 hours): Temp Pulse Resp BP Pulse Ox 97.7 F 76 9 L 132/75 99 08/24/16 11:59 08/24/16 11:10 08/24/16 11:10 08/24/16 10:22 08/24/16 11:59 Intake and Output: 08/24/16 08/24/16 06:59 18:59 Intake Total 1040 1080 Output Total 2690 2601 Balance -1650 -1521 - Medications Medications: Current Medications Calcium Acetate (Phoslo) 667 mg PO TID [facility] Last Admin: 08/24/16 17:53 Dose: 667 mg Epoetin Gulshan (Procrit) 10,000 unit IV MWF [facility] Piperacillin Sod/Tazobactam Sod (Zosyn 2.25 Gm Iv Premix) 2.25 gm in 50 mls @ 100 mls/hr IVPB Q8H [facility] Last Admin: 08/24/16 17:53 Dose: 100 mls/hr Pneumococcal Polyvalent Vaccine (Pneumovax 23 Vaccine) 0.5 ml IM .ONCE ONE Stop: 08/25/16 16:01 - Labs Labs: 08/24/16 06:03 08/24/16 06:03 PT 13.0 SECONDS (9.7-12.2) H 08/23/16 16:02 INR 1.1 08/23/16 16:02 APTT 34 SECONDS (21-34) 08/23/16 16:02
[2016-08-25] MEDS: Piperacill/Tazo 2.25gm in Dex 2.25 GM/50 ML BAG IVPB SCH ×3 (00:08→17:55)
[2016-08-25 09:05] LABS: BASO # 0.1 K/uL (0.0-0.2); BASO % 0.8 % (0.0-2.0); EOS # 0.5 K/uL (0.0-0.7); EOS % 5.5 % (0.0-4.0); HEMATOCRIT 28.4 % (35.0-51.0); LYMPH # 0.9 K/uL (1.0-4.3); LYMPH % 10.4 % (20.0-40.0); MEAN CELL VOLUME 93.1 fL (80.0-94.0); MEAN CORPUSCULAR HEMOGLOBIN 30.8 pg (27.0-31.0); MEAN PLATELET VOLUME 8.3 fL (7.2-11.7); MONO # 1.4 K/uL (0.0-0.8); MONO % 15.4 % (0.0-10.0); RED CELL DISTRIBUTION WIDTH 17.1 % (11.5-14.5); WHITE BLOOD COUNT 9.1 K/uL (4.8-10.8)
[2016-08-25 09:22] LABS: POTASSIUM 3.2 mmol/L (3.6-5.2)
[2016-08-25 09:24] LABS: ALB/GLOB RATIO 0.9 (1.0-2.1); BILIRUBIN,TOTAL 0.6 mg/dL (0.2-1.3); TOTAL PROTEIN 6.8 g/dL (6.3-8.3)
[2016-08-25 09:25] LABS: MAGNESIUM 1.6 mg/dL (1.6-2.3); PHOSPHOROUS 5.4 mg/dL (2.5-4.5)
--- NOTE | 2016-08-25 13:27 | CON ---
DATE: 08/24/2016 REASON FOR CONSULTATION: Renal failure. HISTORY OF PRESENT ILLNESS: The patient was admitted to the [facility] ICU because of renal emilie lure with a creatinine over 5. Clark catheter was placed and there was approximately 1000 mL of post void residual urine. The patient does give a history of significant urinary frequency and nocturia b efore admission, but he said he had no pain or discomfort. He was voiding small amounts. He denies any previous instrumentation. Denies gross hematuria or other symptoms. REVIEW OF SYSTEMS: RESPIRATORY: The patient has no shortness of breath or wheezing. CARDIAC: The patient has no palpitations or chest pain. ABDOMEN: The patient is not complaining of any abdominal pain. He has no history of diarrhea, const ipation, or change in bowel habits. ORTHOPEDIC: The patient has no history of deformities. Has no history of joint pain. He has no his tory of orthopedic procedures. NEUROLOGICAL: The patient has no history of tremors or seizures. No history of neurological illness es. No paresthesias. SKIN: The patient has no history of skin abnormalities. SOCIAL HISTORY: The patient is retired. He lives locally and does not smoke or drink. I have also reviewed the patient's laboratory data and ultrasound which shows an elevated creatinine and a bilateral hydronephrosis. PHYSICAL EXAMINATION: VITAL SIGNS: Within normal limits. HEAD, EARS, EYES, NOSE, AND THROAT: Within normal limits. NECK: Supple. There are no bruits, nodes, or masses. CHEST: Clear bilaterally. There are no rales or rhonchi. HEART: Normal sinus rhythm. ABDOMEN: Soft, nontender. The bladder is not palpably distended. The prostate is 3+ non-nodular. GENITOURINARY: Testicles, epididymis, and cord are normal. NEUROLOGICAL: Normal. VASCULAR: Normal. ORTHOPEDIC: Normal. IMPRESSION: Urinary retention causing renal failure. SUGGEST: The patient should have a CAT scan of the abdomen and pelvis and a PSA. We will follow ewelina bojorquez. Jean Zayas MD cc: [id number] TT: 08/25/2016 13:25:46 Confirmation # [id number] Dictation # [id number]
--- NOTE | 2016-08-25 13:28 | CT ---
PROCEDURE: CT Abdomen without intravenous contrast HISTORY: Hydronephrosis COMPARISON: Comparison is made to the previous ultrasound of the abdomen dated 08/23/2016 TECHNIQUE: Axial images of the abdomen from lung bases to iliac crest without intravenous contrast enhancement. Coronal and sagittal reformats generated. Radiation dose: Total exam DLP = 215.93 mGy-cm. FINDINGS: LOWER THORAX: Focal opacity seen at the medial aspect of the right lung lower lobe may represent atelectasis or pneumonia. Pleural thickening seen at both lung bases. LIVER: Unremarkable. No gross lesion or ductal dilatation. GALLBLADDER AND BILE DUCTS: Unremarkable. PANCREAS: The pancreas is not well visualized in this study. SPLEEN: Unremarkable. ADRENALS: Unremarkable. No mass. KIDNEYS AND URETERS: Moderate bilateral hydronephrosis and hydroureter seen. Punctate calcifications seen in both kidneys suggestive of nonobstructing renal calculi. VASCULATURE: Unremarkable. No aortic aneurysm. BOWEL: Moderate constipation is noted. No evidence of bowel obstruction. APPENDIX: The appendix is not included in this study P PERITONEUM: Trace free fluid and soft tissue edema seen. No evidence of free air. LYMPH NODES: Limited assessment. Mildly enlarged mesenteric lymph nodes seen. BONES: Large sclerotic changes seen at the thoracic and lumbar spine likely due to osseous metastasis. OTHER FINDINGS: None. IMPRESSION: Moderate to mildly severe bilateral hydronephrosis and hydroureter. The possibility of distal obstruction such as bladder outlet obstruction should be considered. Correlate clinically for possible prostate hypertrophy or prostate cancer. Moderate constipation. Mild soft tissue edema and trace fluid in the abdomen. Mild cardiomegaly. Small nonobstructing renal calculi bilaterally. Large sclerotic lesions seen in the lower thoracic and lumbar spine suspicious for osseous metastasis. Correlate clinically for possible prostate cancer.
--- NOTE | 2016-08-25 13:43 | CP.PCM.PN ---
Subjective - Date & Time of Evaluation Date of Evaluation: 08/25/16 Time of Evaluation: 13:41 - Subjective Subjective: Clark remains in place- good UO Seen by - likely chronic obstructive uropathy Eating much better; still very sleepy Creat remains 5.4 despite good UO Objective - Vital Signs/Intake and Output Vital Signs (last 24 hours): Temp Pulse Resp BP Pulse Ox 98.4 F 81 16 119/73 98 08/25/16 12:00 08/25/16 12:20 08/25/16 12:20 08/25/16 12:20 08/25/16 12:20 Intake and Output: 08/25/16 08/25/16 06:59 18:59 Intake Total 350 Output Total 3800 Balance -3450 - Medications Medications: Current Medications Calcium Acetate (Phoslo) 667 mg PO TID [facility] Last Admin: 08/25/16 09:01 Dose: 667 mg Epoetin Gulshan (Procrit) 10,000 unit IV MWF [facility] Piperacillin Sod/Tazobactam Sod (Zosyn 2.25 Gm Iv Premix) 2.25 gm in 50 mls @ 100 mls/hr IVPB Q8H [facility] Last Admin: 08/25/16 09:00 Dose: 100 mls/hr Pneumococcal Polyvalent Vaccine (Pneumovax 23 Vaccine) 0.5 ml IM .ONCE ONE Stop: 08/25/16 16:01 - Labs Labs: 08/25/16 08:55 08/25/16 08:55 PT 13.0 SECONDS (9.7-12.2) H 08/23/16 16:02 INR 1.1 08/23/16 16:02 APTT 34 SECONDS (21-34) 08/23/16 16:02 - Constitutional Appears: No Acute Distress, Chronically Ill - Head Exam Head Exam: ATRAUMATIC, NORMAL INSPECTION - Eye Exam Eye Exam: EOMI, Normal appearance - Neck Exam Neck Exam: Normal Inspection. absent: Tenderness - Respiratory Exam Respiratory Exam: Clear to Ausculation Bilateral, NORMAL BREATHING PATTERN - Cardiovascular Exam Cardiovascular Exam: REGULAR RHYTHM, +S1 - GI/Abdominal Exam GI & Abdominal Exam: Soft. absent: Tenderness - Extremities Exam Extremities Exam: Pedal Edema. absent: Tenderness - Neurological Exam Neurological Exam: Alert, CN II-XII Intact - Skin Skin Exam: Dry, Warm Assessment and Plan (1) Congestive heart failure Status: Acute (2) Metabolic acidosis Status: Acute (3) Renal failure, acute Status: Acute (4) Urinary retention with incomplete bladder emptying Status: Acute (5) CKD (chronic kidney disease) stage 5, GFR less than 15 ml/min Status: Acute - Assessment and Plan (Free Text) Plan: Repeat dialysis due to uremia eval- including CT scan, cysto pending ESAs, phoslo added. Schedule MWF dialysis
[2016-08-25] MEDS ORDERED: Potassium Chloride 20 mEq/15 ml LIQ UD PO ONE (13:45)
--- NOTE | 2016-08-25 13:49 | CP.PCM.PN ---
Subjective - Date & Time of Evaluation Date of Evaluation: 08/25/16 Time of Evaluation: 14:30 - Subjective Subjective: Patient was seen and examined in ICU Patient stated that he is feeling better. Still complains of lower extremity edema but breathing has improved. Status post hemodialysis today. Objective - Vital Signs/Intake and Output Vital Signs (last 24 hours): Temp Pulse Resp BP Pulse Ox 98.4 F 81 16 119/73 98 08/25/16 12:00 08/25/16 12:20 08/25/16 12:20 08/25/16 12:20 08/25/16 12:20 Intake and Output: 08/25/16 08/25/16 06:59 18:59 Intake Total 350 Output Total 3800 Balance -3450 - Medications Medications: Current Medications Calcium Acetate (Phoslo) 667 mg PO TID [facility] Last Admin: 08/25/16 09:01 Dose: 667 mg Epoetin Gulshan (Procrit) 10,000 unit IV MWF [facility] Piperacillin Sod/Tazobactam Sod (Zosyn 2.25 Gm Iv Premix) 2.25 gm in 50 mls @ 100 mls/hr IVPB Q8H [facility] Last Admin: 08/25/16 09:00 Dose: 100 mls/hr Pneumococcal Polyvalent Vaccine (Pneumovax 23 Vaccine) 0.5 ml IM .ONCE ONE Stop: 08/25/16 16:01 Potassium Chloride (Potassium Chloride Oral Soln) 20 meq PO ONCE [facility] - Labs Labs: 08/25/16 08:55 08/25/16 08:55 PT 13.0 SECONDS (9.7-12.2) H 08/23/16 16:02 INR 1.1 08/23/16 16:02 APTT 34 SECONDS (21-34) 08/23/16 16:02 - Head Exam Head Exam: ATRAUMATIC, NORMOCEPHALIC - Eye Exam Eye Exam: Normal appearance - Respiratory Exam Respiratory Exam: Clear to Ausculation Bilateral - Cardiovascular Exam Cardiovascular Exam: REGULAR RHYTHM, +S1, +S2 - Extremities Exam Extremities Exam: Pedal Edema - Neurological Exam Neurological Exam: Alert, Oriented x3 Assessment and Plan (1) Congestive heart failure Status: Acute (2) Dyspnea Status: Acute (3) Hematuria Status: Acute (4) Metabolic acidosis Status: Acute (5) Renal failure, acute Status: Acute (6) Urinary retention with incomplete bladder emptying Status: Acute - Assessment and Plan (Free Text) Plan: Continue hemodialysis as per recommendations of nephrology Plan for a permacath placement on Sunday Urology consultation seen in appreciated.
[2016-08-25] MEDS: Epoetin Alfa 10,000 unit/ml Dialysis IV SCH (15:05)
[2016-08-25] MEDS ORDERED: Pneumococcal 23-Valent Vaccine IM ONE (16:00)
[2016-08-26] MEDS: Piperacill/Tazo 2.25gm in Dex 2.25 GM/50 ML BAG IVPB SCH ×3 (00:58→17:28)
--- NOTE | 2016-08-26 09:19 | CP.PCM.PN ---
Subjective - Date & Time of Evaluation Date of Evaluation: 08/26/16 Time of Evaluation: 09:16 - Subjective Subjective: Stable dialysis 08/25- UF 1200ml More alert No dyspnea, eating better, no n or v UO still good Objective - Vital Signs/Intake and Output Vital Signs (last 24 hours): Temp Pulse Resp BP Pulse Ox 98.4 F 80 13 106/61 97 08/26/16 08:00 08/26/16 07:00 08/26/16 07:00 08/26/16 06:47 08/26/16 07:00 Intake and Output: 08/26/16 08/26/16 06:59 18:59 Intake Total 250 Output Total 2600 Balance -2350 - Medications Medications: Current Medications Calcium Acetate (Phoslo) 667 mg PO TID [facility] Last Admin: 08/26/16 08:52 Dose: 667 mg Epoetin Gulshan (Procrit) 10,000 unit IV MWF [facility] Last Admin: 08/25/16 15:05 Dose: 10,000 unit Piperacillin Sod/Tazobactam Sod (Zosyn 2.25 Gm Iv Premix) 2.25 gm in 50 mls @ 100 mls/hr IVPB Q8H [facility] Last Admin: 08/26/16 08:52 Dose: 100 mls/hr - Labs Labs: 08/25/16 08:55 08/25/16 08:55 PT 13.0 SECONDS (9.7-12.2) H 08/23/16 16:02 INR 1.1 08/23/16 16:02 APTT 34 SECONDS (21-34) 08/23/16 16:02 - Constitutional Appears: Non-toxic, Chronically Ill - Head Exam Head Exam: ATRAUMATIC, NORMAL INSPECTION - Eye Exam Eye Exam: EOMI, Normal appearance - Neck Exam Neck Exam: Normal Inspection. absent: Tenderness - Respiratory Exam Respiratory Exam: Clear to Ausculation Bilateral, NORMAL BREATHING PATTERN - Cardiovascular Exam Cardiovascular Exam: REGULAR RHYTHM, +S1 - GI/Abdominal Exam GI & Abdominal Exam: Soft. absent: Tenderness - Extremities Exam Extremities Exam: Normal Inspection. absent: Tenderness - Skin Skin Exam: Dry, Warm Assessment and Plan (1) Congestive heart failure Status: Acute (2) Metabolic acidosis Status: Acute (3) Renal failure, acute Status: Acute (4) Urinary retention with incomplete bladder emptying Status: Acute (5) CKD (chronic kidney disease) stage 5, GFR less than 15 ml/min Status: Acute - Assessment and Plan (Free Text) Plan: Dialysis again 08/28 Clark management as per Consider AV access next week
--- NOTE | 2016-08-26 18:06 | CP.PCM.PN ---
Subjective - Date & Time of Evaluation Date of Evaluation: 08/26/16 Time of Evaluation: 13:00 - Subjective Subjective: Patient seen and examined at bedside. States that breathing is improved Still complains of bilateral lower extremity edema Objective - Vital Signs/Intake and Output Vital Signs (last 24 hours): Temp Pulse Resp BP Pulse Ox 97.7 F 81 12 121/61 98 08/26/16 16:00 08/26/16 14:00 08/26/16 14:00 08/26/16 13:49 08/26/16 14:00 Intake and Output: 08/26/16 08/26/16 06:59 18:59 Intake Total 250 50 Output Total 2600 Balance -2350 50 - Medications Medications: Current Medications Calcium Acetate (Phoslo) 667 mg PO TID [facility] Last Admin: 08/26/16 17:28 Dose: 667 mg Epoetin Gulshan (Procrit) 10,000 unit IV MWF [facility] Last Admin: 08/25/16 15:05 Dose: 10,000 unit Piperacillin Sod/Tazobactam Sod (Zosyn 2.25 Gm Iv Premix) 2.25 gm in 50 mls @ 100 mls/hr IVPB Q8H [facility] Last Admin: 08/26/16 17:28 Dose: 100 mls/hr - Labs Labs: 08/25/16 08:55 08/25/16 08:55 PT 13.0 SECONDS (9.7-12.2) H 08/23/16 16:02 INR 1.1 08/23/16 16:02 APTT 34 SECONDS (21-34) 08/23/16 16:02 - Head Exam Head Exam: ATRAUMATIC, NORMOCEPHALIC - Eye Exam Eye Exam: Normal appearance - ENT Exam ENT Exam: Mucous Membranes Moist - Neck Exam Neck Exam: Normal Inspection - Cardiovascular Exam Cardiovascular Exam: REGULAR RHYTHM, +S1, +S2 - GI/Abdominal Exam GI & Abdominal Exam: Soft. absent: Tenderness - Extremities Exam Extremities Exam: Pedal Edema - Neurological Exam Neurological Exam: Alert, Oriented x3 - Psychiatric Exam Psychiatric exam: Normal Affect, Normal Mood Assessment and Plan (1) Congestive heart failure Status: Acute (2) Dyspnea Status: Acute (3) Hematuria Status: Acute (4) Metabolic acidosis Status: Acute (5) Renal failure, acute Status: Acute (6) Urinary retention with incomplete bladder emptying Status: Acute - Assessment and Plan (Free Text) Plan: We will continue hemodialysis. Nephrology is on board Patient has Clark's catheter because of obstructive uropathy. No urgent urological intervention suggested by urology Continue current management Plan for permacath placement on Sunday
--- NOTE | 2016-08-26 20:52 | CP.PCM.CON ---
History of Present Illness - History of Present Illness History of Present Illness: VASCULAR SURGERY CONSULT NOTE FOR DR. ADEN 76yo M with no PMHx who presented to the ED with SOB on 08/23/16 and was found to have renal failure. Surgery is consulted for Permacath and AV Fistula placement. Patient presented to ED after being recommended to go by a deputy juvenile officer. He states that he was delirious and SOB. He had had poor urine output for a few days. He states that his symptoms of feeling "weak and listless" began back in Mar and have gradually progressed. He was found to be severely acidotic, Cr 7.2, BUN 142. He had urinary retention so a cox was placed. He is now being worked up by urology and nephrology. He had a temporary femoral dialysis catheter placed and had Dialysis Sun and Sunday. Dr. Altman requested Permacath and AV Fistula placement. Patient is left handed and has right arm alert in place. PMHx: none (hasn't seen a doctor in 30 years) Surgeries: none Allergies: none Social history: former smoker, quit 3 months ago, occasional etoh, no illicit drug use Review of Systems - Review of Systems All systems: reviewed and no additional remarkable complaints except (as per HPI ) Past Patient History - Past Medical History & Family History Past Medical History?: No - Past Social History Smoking Status: Never Smoked - NEUROLOGICAL Hx Transient Ischemic Attacks (TIA): Yes - MUSCULOSKELETAL/RHEUMATOLOGICAL Hx Falls: Yes - PSYCHIATRIC Hx Substance Use: No - SURGICAL HISTORY Hx Surgeries: No - ANESTHESIA Hx Anesthesia: No Hx Anesthesia Reactions: No Hx Malignant Hyperthermia: No Has any member of the family had a problem w/ anesthesia?: No Meds Allergies/Adverse Reactions: Allergies Allergy/AdvReac Type Severity Reaction Status Date / Time No Known Allergies Allergy Verified 08/23/16 10:57 - Medications Medications: Current Medications Calcium Acetate (Phoslo) 667 mg PO TID [facility] Last Admin: 08/26/16 17:28 Dose: 667 mg Epoetin Gulshan (Procrit) 10,000 unit IV MWF [facility] Last Admin: 08/25/16 15:05 Dose: 10,000 unit Piperacillin Sod/Tazobactam Sod (Zosyn 2.25 Gm Iv Premix) 2.25 gm in 50 mls @ 100 mls/hr IVPB Q8H [facility] Last Admin: 08/26/16 17:28 Dose: 100 mls/hr Physical Exam - Constitutional Appears: Non-toxic, No Acute Distress - Eye Exam Eye Exam: EOMI, Normal appearance - Respiratory Exam Respiratory Exam: NORMAL BREATHING PATTERN. absent: Respiratory Distress - Cardiovascular Exam Cardiovascular Exam: +S1, +S2 - GI/Abdominal Exam GI & Abdominal Exam: Soft. absent: Distended, Tenderness - Exam Exam: NORMAL INSPECTION (Cox in place) - Neurological Exam Neurological exam: Alert, CN II-XII Intact, Oriented x3 - Psychiatric Exam Psychiatric exam: Normal Affect, Normal Mood - Skin Skin Exam: Normal Color, Warm Results - Vital Signs Recent Vital Signs: Last Vital Signs Temp 97.7 F 08/26/16 16:00 Pulse 86 08/26/16 19:48 Resp 18 08/26/16 19:48 BP 135/64 08/26/16 19:48 Pulse Ox 100 08/26/16 19:48 - Labs Result Diagrams: 08/25/16 08:55 08/25/16 08:55 Assessment & Plan - Assessment and Plan (Free Text) Assessment: 76yo M with no PMHx who presented to the ED with SOB on 08/23/16 and was found to have renal failure. Surgery requested to place Permacath and AV Fistula - Scheduled for Permacath and AV Fistula on Sunday - NPO past midnight Sunday - Procedure explained to patient in detail, all questions were answered, Consent signed and in the chart - Vein mapping ordered - Right arm alert in place - Discussed plan with Dr. Wan Gallegos PGY-2
[2016-08-27] MEDS: Piperacill/Tazo 2.25gm in Dex 2.25 GM/50 ML BAG IVPB SCH ×3 (00:16→18:17)
[2016-08-27 06:27] LABS: BASO # 0.1 K/uL (0.0-0.2); BASO % 1.1 % (0.0-2.0); EOS # 1.3 K/uL (0.0-0.7); EOS % 13.3 % (0.0-4.0); HEMATOCRIT 27.9 % (35.0-51.0); LYMPH # 1.3 K/uL (1.0-4.3); LYMPH % 12.9 % (20.0-40.0); MEAN CELL VOLUME 93.5 fL (80.0-94.0); MEAN CORPUSCULAR HEMOGLOBIN 31.1 pg (27.0-31.0); MEAN CORPUSCULAR HGB CONC 33.2 g/dL (33.0-37.0); MEAN PLATELET VOLUME 8.7 fL (7.2-11.7); MONO # 1.4 K/uL (0.0-0.8); MONO % 14.3 % (0.0-10.0); WHITE BLOOD COUNT 10.1 K/uL (4.8-10.8)
[2016-08-27 06:41] LABS: POTASSIUM 3.3 mmol/L (3.6-5.2)
[2016-08-27 06:44] LABS: ALB/GLOB RATIO 0.9 (1.0-2.1); BILIRUBIN,TOTAL 0.6 mg/dL (0.2-1.3); PHOSPHOROUS 5.1 mg/dL (2.5-4.5); TOTAL PROTEIN 6.3 g/dL (6.3-8.3)
[2016-08-27 06:45] LABS: CALCIUM 6.4 mg/dl (8.6-10.4)
--- NOTE | 2016-08-27 07:37 | CP.PCM.PN ---
Subjective - Date & Time of Evaluation Date of Evaluation: 08/27/16 Time of Evaluation: 07:00 - Subjective Subjective: VASCULAR SURGERY PROGRESS NOTE FOR DR. ADEN Patient seen and examined at bedside in the ICU. He denies CP, abdominal pain, SOB. He has no complaints. Patient aware of plan for surgery tomorrow for Permacath and AV Fistula. He still has Clark due to obstructive uropathy. Cr improved to 4.0 this AM. Objective - Vital Signs/Intake and Output Vital Signs (last 24 hours): Temp Pulse Resp BP Pulse Ox 98.5 F 76 13 102/42 L 96 08/27/16 04:00 08/27/16 05:00 08/27/16 05:00 08/27/16 04:48 08/27/16 05:00 - Medications Medications: Current Medications Calcium Acetate (Phoslo) 667 mg PO TID [facility] Last Admin: 08/26/16 17:28 Dose: 667 mg Epoetin Gulshan (Procrit) 10,000 unit IV MWF [facility] Last Admin: 08/25/16 15:05 Dose: 10,000 unit Piperacillin Sod/Tazobactam Sod (Zosyn 2.25 Gm Iv Premix) 2.25 gm in 50 mls @ 100 mls/hr IVPB Q8H [facility] Last Admin: 08/27/16 00:16 Dose: 100 mls/hr - Labs Labs: 08/27/16 06:20 08/27/16 06:18 PT 13.0 SECONDS (9.7-12.2) H 08/23/16 16:02 INR 1.1 08/23/16 16:02 APTT 34 SECONDS (21-34) 08/23/16 16:02 - Constitutional Appears: Non-toxic, No Acute Distress - Respiratory Exam Respiratory Exam: NORMAL BREATHING PATTERN. absent: Respiratory Distress - Cardiovascular Exam Cardiovascular Exam: +S1, +S2 - Exam Exam: NORMAL INSPECTION (Clark in place) - Neurological Exam Neurological Exam: Alert, Awake, Oriented x3 - Psychiatric Exam Psychiatric exam: Normal Affect, Normal Mood - Skin Skin Exam: Dry, Normal Color, Warm Assessment and Plan - Assessment and Plan (Free Text) Assessment: 76yo M with no PMHx who presented to the ED with SOB on 08/23/16 and was found to have renal failure. Surgery requested to place Permacath and AV Fistula - Scheduled for Permacath and AV Fistula on Sunday - NPO past midnight Sunday - Procedure explained to patient in detail, all questions were answered, Consent signed and in the chart - Vein mapping ordered - Right arm alert in place - Discussed plan with Dr. Wan Gallegos PGY-2
[2016-08-27] MEDS ORDERED: Potassium Chloride 20 mEq ER Tab PO ONE ×2 (10:00)
--- NOTE | 2016-08-27 11:50 | CP.PCM.PN ---
<Jamila Grimes - Last Filed: 08/27/16 11:46> Subjective - Date & Time of Evaluation Date of Evaluation: 08/27/16 Time of Evaluation: 11:46 - Subjective Subjective: Medicine Progress Note Patient seen and examined. Patient has no acute complaints today. Patient is schedule for OR tomorrow for permacath and AV fistula placement. Denies fever, chest pain, shortness of breath, and headache. Objective - Vital Signs/Intake and Output Vital Signs (last 24 hours): Temp Pulse Resp BP Pulse Ox 97.8 F 78 12 119/71 97 08/27/16 08:00 08/27/16 08:00 08/27/16 08:00 08/27/16 07:48 08/27/16 08:00 Intake and Output: 08/27/16 08/27/16 06:59 18:59 Output Total 900 Balance -900 - Medications Medications: Current Medications Calcium Acetate (Phoslo) 667 mg PO TID [facility] Last Admin: 08/27/16 09:15 Dose: 667 mg Epoetin Gulshan (Procrit) 10,000 unit IV MWF [facility] Last Admin: 08/25/16 15:05 Dose: 10,000 unit Piperacillin Sod/Tazobactam Sod (Zosyn 2.25 Gm Iv Premix) 2.25 gm in 50 mls @ 100 mls/hr IVPB Q8H [facility] Last Admin: 08/27/16 09:59 Dose: 100 mls/hr - Labs Labs: 08/27/16 06:20 08/27/16 06:18 PT 13.0 SECONDS (9.7-12.2) H 08/23/16 16:02 INR 1.1 08/23/16 16:02 APTT 34 SECONDS (21-34) 08/23/16 16:02 - Constitutional Appears: Non-toxic, No Acute Distress - Head Exam Head Exam: ATRAUMATIC, NORMOCEPHALIC - Eye Exam Eye Exam: EOMI, Normal appearance - ENT Exam ENT Exam: Mucous Membranes Moist - Respiratory Exam Respiratory Exam: Clear to Ausculation Bilateral, NORMAL BREATHING PATTERN. absent: Rhonchi, Wheezes, Respiratory Distress - Cardiovascular Exam Cardiovascular Exam: REGULAR RHYTHM - GI/Abdominal Exam GI & Abdominal Exam: Soft, Normal Bowel Sounds - Neurological Exam Neurological Exam: Alert, Awake, Oriented x3 - Psychiatric Exam Psychiatric exam: Normal Affect, Normal Mood - Skin Skin Exam: Dry, Intact, Normal Color, Warm Assessment and Plan - Assessment and Plan (Free Text) Assessment: (1) Dyspnea Admitted to ICU on 08/23 for SOB Currently resolved and improved after emergent HD Metabolic acidosis resolved Hemodynamically stable and transferred to regular floor (2) Renal failure, acute Emergent HD on 08/23 and 08/25 BUN/Cr 61/4, improving Dr Blas consulted- patient scheduled for AV fistula and portacath placement Monday 08/28 NPO [address] mid[address] Dr[address] Altman (renal) following Procrit [id number] MWF Phoslo 667mg PO TID (3) Urinary retention with incomplete bladder emptying Urologist Dr Zayas consulted- help appreciated Clark catheter in place PSA elevated 10.9 Pt should have cystoscopic evaluation when renal function maximally improved CT abdomen: Moderate to mildly severe bilateral hydronephrosis and hydroureter. The possibility of distal obstruction such as bladder outlet obstruction should be considered. Correlate clinically for possible prostate hypertrophy or prostate cancer. (4) Hematuria Hematuria improving Likely chronic hydronephrosis 2/2 to echogenecity of b/l kidneys on US Dr. Zayas (urology) consulted Pt should have cystoscopic evaluation when renal function maximally improved <Bonifacio Garcia - Last Filed: 08/27/16 12:43> Objective - Vital Signs/Intake and Output Vital Signs (last 24 hours): Temp Pulse Resp BP Pulse Ox 97.8 F 78 12 119/71 97 08/27/16 08:00 08/27/16 08:00 08/27/16 08:00 08/27/16 07:48 08/27/16 08:00 Intake and Output: 08/27/16 08/27/16 06:59 18:59 Output Total 900 Balance -900 - Medications Medications: Current Medications Calcium Acetate (Phoslo) 667 mg PO TID [facility] Last Admin: 08/27/16 09:15 Dose: 667 mg Epoetin Gulshan (Procrit) 10,000 unit IV MWF [facility] Last Admin: 08/25/16 15:05 Dose: 10,000 unit Piperacillin Sod/Tazobactam Sod (Zosyn 2.25 Gm Iv Premix) 2.25 gm in 50 mls @ 100 mls/hr IVPB Q8H [facility] Last Admin: 08/27/16 09:59 Dose: 100 mls/hr - Labs Labs: 08/27/16 06:20 08/27/16 06:18 PT 13.0 SECONDS (9.7-12.2) H 08/23/16 16:02 INR 1.1 08/23/16 16:02 APTT 34 SECONDS (21-34) 08/23/16 16:02 Assessment and Plan (1) Congestive heart failure Status: Acute (2) Dyspnea Status: Acute (3) Hematuria Status: Acute (4) Metabolic acidosis Status: Acute (5) Renal failure, acute Status: Acute (6) Urinary retention with incomplete bladder emptying Status: Acute Attending/Attestation - Attestation I have personally seen and examined this patient.: Yes I have fully participated in the care of the patient.: Yes I have reviewed all pertinent clinical information, including history, physical exam and plan: Yes Notes (Text): 08/27/16 12:41 Patient was seen and examined at bedside with the resident Patient appears comfortable. Clark's catheter in place. Hematuria noted. Patient states that breathing has improved significantly and bilateral lower extremity swelling has also decreased significantly. We will continue hemodialysis as per recommendations of nephrology. Patient is planned to have a permacath placement tomorrow with vascular surgery. Replace electrolytes as needed. I discussed the plan of care with the resident and agree with the above history and physical and assessment/plan by the resident.
[2016-08-28] MEDS: Piperacill/Tazo 2.25gm in Dex 2.25 GM/50 ML BAG IVPB SCH ×3 (00:33→18:47)
[2016-08-28 08:37] LABS: BASO # 0.1 K/uL (0.0-0.2); EOS # 1.1 K/uL (0.0-0.7); EOS % 11.9 % (0.0-4.0); HEMATOCRIT 31.5 % (35.0-51.0); LYMPH # 1.3 K/uL (1.0-4.3); LYMPH % 13.4 % (20.0-40.0); MEAN CELL VOLUME 94.2 fL (80.0-94.0); MEAN CORPUSCULAR HEMOGLOBIN 30.8 pg (27.0-31.0); MEAN CORPUSCULAR HGB CONC 32.7 g/dL (33.0-37.0); MEAN PLATELET VOLUME 8.5 fL (7.2-11.7); MONO # 1.4 K/uL (0.0-0.8); MONO % 14.4 % (0.0-10.0); RED CELL DISTRIBUTION WIDTH 16.7 % (11.5-14.5); WHITE BLOOD COUNT 9.6 K/uL (4.8-10.8)
[2016-08-28 08:57] LABS: POTASSIUM 3.6 mmol/L (3.6-5.2)
[2016-08-28 09:00] LABS: ALB/GLOB RATIO 0.9 (1.0-2.1); BILIRUBIN,TOTAL 0.6 mg/dL (0.2-1.3); TOTAL PROTEIN 6.7 g/dL (6.3-8.3)
--- NOTE | 2016-08-28 11:29 | CP.PCM.PN ---
Subjective - Date & Time of Evaluation Date of Evaluation: 08/28/16 Time of Evaluation: 11:26 - Subjective Subjective: Dialysis held as cath not functional For permcath and AV fistula soon; then dialysis later Feels better overall No new complaints Objective - Vital Signs/Intake and Output Vital Signs (last 24 hours): Temp Pulse Resp BP Pulse Ox 98 F 74 16 118/68 100 08/28/16 09:30 08/28/16 09:30 08/28/16 09:30 08/28/16 09:30 08/28/16 08:00 Intake and Output: 08/28/16 08/28/16 06:59 18:59 Intake Total 50 Output Total 1600 Balance -1550 - Medications Medications: Current Medications Calcium Acetate (Phoslo) 667 mg PO TID [facility] Last Admin: 08/27/16 18:17 Dose: 667 mg Epoetin Gulshan (Procrit) 10,000 unit IV MWF [facility] Last Admin: 08/25/16 15:05 Dose: 10,000 unit Piperacillin Sod/Tazobactam Sod (Zosyn 2.25 Gm Iv Premix) 2.25 gm in 50 mls @ 100 mls/hr IVPB Q8H [facility] Last Admin: 08/28/16 08:42 Dose: 100 mls/hr - Labs Labs: 08/28/16 08:22 08/28/16 08:22 PT 13.0 SECONDS (9.7-12.2) H 08/23/16 16:02 INR 1.1 08/23/16 16:02 APTT 34 SECONDS (21-34) 08/23/16 16:02 - Constitutional Appears: No Acute Distress, Chronically Ill - Head Exam Head Exam: ATRAUMATIC, NORMAL INSPECTION - Eye Exam Eye Exam: EOMI, Normal appearance Assessment and Plan (1) Congestive heart failure Status: Acute (2) Metabolic acidosis Status: Acute (3) Renal failure, acute Status: Acute (4) Urinary retention with incomplete bladder emptying Status: Acute (5) CKD (chronic kidney disease) stage 5, GFR less than 15 ml/min Status: Acute
[2016-08-28] MEDS ORDERED: ceFAZolin IV 1 gm in Dextrose 0 GM/0 ML BAG IVPB ONE (12:48)
[2016-08-28] MEDS ORDERED: HEPARIN-NS 5,000 UNITS/500 ML 5,000 UNIT/500 ML BAG IV ONE (12:48)
[2016-08-28] MEDS ORDERED: Lidocaine 1% Inj (20ml) ONE (12:48)
[2016-08-28] MEDS ORDERED: Sodium Chloride 0.9% 1,000 ML IV ONE ×2 (13:10→13:32)
--- NOTE | 2016-08-28 13:36 | PCM.SURG1 ---
Surgeon's Initial Post Op Note - Surgeon's Notes Surgeon: [employer] Site Analyst: Eleni PGY2 Type of Anesthesia: IV Sedation, Local Pre-Operative Diagnosis: ESRD Operative Findings: Normal neck anatomy Post-Operative Diagnosis: same Operation Performed: Marv cuba Specimen/Specimens Removed: none Estimated Blood Loss: EBL {In ML}: 10 Blood Products Given: N/A Drains Used: No Drains Post-Op Condition: Good Date of Surgery/Procedure: 08/28/16 Time of Surgery/Procedure: 13:35
--- NOTE | 2016-08-28 14:31 | RAD ---
HISTORY: s/p RIJ permacath COMPARISON: No prior. FINDINGS: LUNGS: Interval placement right IJ large bore dual-lumen central venous line with tips in the SVCRA junction. Mild bibasilar atelectasis PLEURA: No significant pleural effusion identified, no pneumothorax apparent. CARDIOVASCULAR: Cardiomegaly. OSSEOUS STRUCTURES: No significant abnormalities. VISUALIZED UPPER ABDOMEN: Normal. OTHER FINDINGS: None. IMPRESSION: Interval placement right IJ large bore dual-lumen central venous line with tips in the SVCRA junction. . No evidence of pneumothorax. Mild bibasilar atelectasis Cardiomegaly.
--- NOTE | 2016-08-28 16:05 | RAD ---
PROCEDURE: Intraoperative Fluoroscopy. HISTORY: RENAL FAILURE FINDINGS: Fluoroscopic assistance was provided for right central venous catheter placement.. Please refer to the operative report from
--- NOTE | 2016-08-28 16:56 | OP ---
PROCEDURE DATE: 08/28/2016 PREOPERATIVE DIAGNOSIS: Renal failure. POSTOPERATIVE DIAGNOSIS: Renal failure. PROCEDURE CARRIED OUT: Placement of PermCath right jugular vein with C-arm fluoroscopy, ultrasound-g uided puncture and micropuncture technique. SURGEON: Dr. Blas SECONDARY ART TEACHER: Dr. Knowles, resident ANESTHESIOLOGIST: ____, ROMAN INDICATIONS: A 76-year-old man, renal insufficiency, presently dialyzed by means of a femoral cathet er. OPERATIVE FINDINGS: Catheter was inserted uneventfully via the jugular vein. PROCEDURE: The patient was given local anesthesia. Using ultrasound guidance and micropuncture tech nique, the right jugular vein was cannulated. Under fluoroscopic control, the guidewire was advanced centrally. A sheath dilator was passed over this and the catheter positioned with the tip in the acuna perior vena cava, right atrium. It was flushed with heparinized saline with good pull and good retur n. This was secured to the skin with sutures and tunneled down underneath the skin. The operation carried out is PermCath right jugular vein with C-arm fluoroscopy and ultrasound-guided puncture and micropuncture technique. Ultrasound ____ showed the vein was approximately 16 mm in diameter with normal compressibility and n o ____ luminal thrombosis. Chest x-ray is pending. Initially, our plan had been top create a fistula at the left arm. This was not done as the patient was unable to be dialyzed today through the existing femoral catheter, which was also removed. Kirill Blas Jr., MD cc: [id number] TT: 08/28/2016 16:55:12
[2016-08-28] MEDS: Epoetin Alfa 10,000 unit/ml Dialysis IV SCH (18:00)
--- NOTE | 2016-08-28 18:00 | CP.PCM.PN ---
<Nain Stone - Last Filed: 08/28/16 18:37> Subjective - Date & Time of Evaluation Date of Evaluation: 08/28/16 Time of Evaluation: 18:00 - Subjective Subjective: Med progress note. Attending: Dr. Johnson Pt seen and examined at bedside. No acute distress. No events overnight. Pt going for permacath today. No complaints. Denies fevers, chills, n/v/d. Denies cp, sob. Objective - Vital Signs/Intake and Output Vital Signs (last 24 hours): Temp Pulse Resp BP Pulse Ox 97.3 F L 60 17 92/57 L 98 08/28/16 15:00 08/28/16 17:30 08/28/16 17:30 08/28/16 17:30 08/28/16 17:30 Intake and Output: 08/28/16 08/28/16 06:59 18:59 Intake Total 50 50 Output Total 1600 1500 Balance -1550 -1450 - Medications Medications: Current Medications Calcitriol (Rocaltrol) 0.25 mcg PO DAILY [facility] Calcium Acetate (Phoslo) 667 mg PO TID [facility] Last Admin: 08/28/16 15:14 Dose: Not Given Epoetin Gulshan (Procrit) 10,000 unit IV MWF [facility] Last Admin: 08/25/16 15:05 Dose: 10,000 unit Piperacillin Sod/Tazobactam Sod (Zosyn 2.25 Gm Iv Premix) 2.25 gm in 50 mls @ 100 mls/hr IVPB Q8H [facility] Last Admin: 08/28/16 08:42 Dose: 100 mls/hr Morphine Sulfate (Morphine) 4 mg IVP Q4 PRN PRN Reason: Pain, moderate (4-7) - Labs Labs: 08/28/16 08:22 08/28/16 08:22 PT 13.0 SECONDS (9.7-12.2) H 08/23/16 16:02 INR 1.1 08/23/16 16:02 APTT 34 SECONDS (21-34) 08/23/16 16:02 - Constitutional Appears: Non-toxic, No Acute Distress - Head Exam Head Exam: ATRAUMATIC, NORMAL INSPECTION, NORMOCEPHALIC - Eye Exam Eye Exam: EOMI - ENT Exam ENT Exam: Mucous Membranes Moist - Neck Exam Neck Exam: Full ROM, Normal Inspection - Respiratory Exam Respiratory Exam: NORMAL BREATHING PATTERN. absent: Respiratory Distress - Cardiovascular Exam Cardiovascular Exam: +S1, +S2 - GI/Abdominal Exam GI & Abdominal Exam: Soft, Normal Bowel Sounds. absent: Tenderness - Extremities Exam Extremities Exam: Full ROM, Normal Inspection - Neurological Exam Neurological Exam: Alert, Awake, Oriented x3 - Psychiatric Exam Psychiatric exam: Normal Affect, Normal Mood - Skin Skin Exam: Dry, Intact, Normal Color, Warm Assessment and Plan - Assessment and Plan (Free Text) Assessment: This is a 76 yo male with no reported past medical or sx hx presenting with 1) Dyspnea Admitted to ICU on 08/23 for SOB Currently resolved and improved after emergent HD Metabolic acidosis resolved Hemodynamically stable and transferred to regular floor pt now on regular floor with no complaint s (2) Renal failure, acute Emergent HD on 08/23 and 08/25 BUN/Cr 59/4.2, improving Dr Blas consulted- patient scheduled for AV fistula and portacath placement Monday 08/[address] Altman (renal) following Procrit [id number] MWF Phoslo 667mg PO TID (3) Urinary retention with incomplete bladder emptying Urologist Dr Zayas consulted- help appreciated Clark catheter in place PSA elevated 10.9 Pt should have cystoscopic evaluation when renal function maximally improved CT abdomen: Moderate to mildly severe bilateral hydronephrosis and hydroureter. The possibility of distal obstruction such as bladder outlet obstruction should be considered. Correlate clinically for possible prostate hypertrophy or prostate cancer. (4) Hematuria Hematuria improving Likely chronic hydronephrosis 2/2 to echogenecity of b/l kidneys on US Dr. Zayas (urology) consulted Pt should have cystoscopic evaluation when renal function maximally improved (5) GI/DVT ppx -protonix daily -SCDs -renal diet discussed with Dr. Johnson <Danial Johnson - Last Filed: 08/28/16 19:21> Objective - Vital Signs/Intake and Output Vital Signs (last 24 hours): Temp Pulse Resp BP Pulse Ox 97.5 F L 60 17 118/71 98 08/28/16 18:00 08/28/16 17:30 08/28/16 18:00 08/28/16 18:00 08/28/16 18:00 Intake and Output: 08/28/16 08/29/16 18:59 06:59 Intake Total 50 Output Total 1500 Balance -1450 - Medications Medications: Current Medications Calcitriol (Rocaltrol) 0.25 mcg PO DAILY [facility] Calcium Acetate (Phoslo) 667 mg PO TID [facility] Last Admin: 08/28/16 18:47 Dose: 667 mg Epoetin Gulshan (Procrit) 10,000 unit IV MWF [facility] Last Admin: 08/28/16 18:00 Dose: 10,000 unit Piperacillin Sod/Tazobactam Sod (Zosyn 2.25 Gm Iv Premix) 2.25 gm in 50 mls @ 100 mls/hr IVPB Q8H [facility] Last Admin: 08/28/16 18:47 Dose: 100 mls/hr Morphine Sulfate (Morphine) 4 mg IVP Q4 PRN PRN Reason: Pain, moderate (4-7) Pantoprazole Sodium (Protonix Ec Tab) 40 mg PO DAILY [facility] - Labs Labs: 08/28/16 08:22 08/28/16 08:22 PT 13.0 SECONDS (9.7-12.2) H 08/23/16 16:02 INR 1.1 08/23/16 16:02 APTT 34 SECONDS (21-34) 08/23/16 16:02 Attending/Attestation - Attestation I have personally seen and examined this patient.: Yes I have fully participated in the care of the patient.: Yes I have reviewed all pertinent clinical information, including history, physical exam and plan: Yes Notes (Text): 08/28/16 19:19 Medical Attending: Patient was seen and examined by me. Agree with the above note by the resident. I was not able to see the patient for long, he said that he was tired of seeing so many people and asked me to leave the room. Patient is pending placement of AVF and permacath at this time. Hopefully tommorow after procedure will be able to talk and examine more, reviewed case with the medical supply technician and also reviewed previous notes as well thank you Danial Johnson
[2016-08-29] MEDS: Piperacill/Tazo 2.25gm in Dex 2.25 GM/50 ML BAG IVPB SCH ×3 (00:45→17:45)
[2016-08-29 08:53] LABS: BASO # 0.1 K/uL (0.0-0.2); EOS # 0.6 K/uL (0.0-0.7); MEAN PLATELET VOLUME 8.7 fL (7.2-11.7); NRBC % 0.1 % (0.0-2.0)
[2016-08-29 09:06] LABS: BASO % 1.1 % (0.0-2.0); EOS % 6.3 % (0.0-4.0); HEMATOCRIT 30.7 % (35.0-51.0); LYMPH # 1.3 K/uL (1.0-4.3); LYMPH % 12.2 % (20.0-40.0); MEAN CELL VOLUME 94.9 fL (80.0-94.0); MEAN CORPUSCULAR HEMOGLOBIN 30.9 pg (27.0-31.0); MEAN CORPUSCULAR HGB CONC 32.6 g/dL (33.0-37.0); MONO # 1.7 K/uL (0.0-0.8); MONO % 16.4 % (0.0-10.0); RED CELL DISTRIBUTION WIDTH 16.7 % (11.5-14.5); WHITE BLOOD COUNT 10.3 K/uL (4.8-10.8)
[2016-08-29 09:13] LABS: POTASSIUM 3.8 mmol/L (3.6-5.2)
[2016-08-29 09:15] LABS: BILIRUBIN,TOTAL 0.6 mg/dL (0.2-1.3); TOTAL PROTEIN 6.5 g/dL (6.3-8.3)
[2016-08-29 09:16] LABS: MAGNESIUM 1.7 mg/dL (1.6-2.3); PHOSPHOROUS 4.7 mg/dL (2.5-4.5)
--- NOTE | 2016-08-29 10:46 | CP.PCM.PN ---
Subjective - Date & Time of Evaluation Date of Evaluation: 08/29/16 Time of Evaluation: 10:43 - Subjective Subjective: last hd yesterday s/p permcath low bp noted, off meds ct scan noted, high psa and concern for osseus mets cox in place, dark yellow urine. Objective - Vital Signs/Intake and Output Vital Signs (last 24 hours): Temp Pulse Resp BP Pulse Ox 98.4 F 72 20 98/52 L 98 08/29/16 07:44 08/29/16 07:44 08/29/16 07:44 08/29/16 07:44 08/29/16 07:44 Intake and Output: 08/29/16 08/29/16 06:59 18:59 Intake Total 350 Output Total 1000 Balance -650 - Medications Medications: Current Medications Calcitriol (Rocaltrol) 0.25 mcg PO DAILY [facility] Calcium Acetate (Phoslo) 667 mg PO TID [facility] Last Admin: 08/28/16 18:47 Dose: 667 mg Epoetin Gulshan (Procrit) 10,000 unit IV MWF [facility] Last Admin: 08/28/16 18:00 Dose: 10,000 unit Piperacillin Sod/Tazobactam Sod (Zosyn 2.25 Gm Iv Premix) 2.25 gm in 50 mls @ 100 mls/hr IVPB Q8H [facility] Last Admin: 08/29/16 09:32 Dose: 100 mls/hr Morphine Sulfate (Morphine) 4 mg IVP Q4 PRN PRN Reason: Pain, moderate (4-7) Pantoprazole Sodium (Protonix Ec Tab) 40 mg PO DAILY [facility] - Labs Labs: 08/29/16 08:42 08/29/16 08:42 PT 13.0 SECONDS (9.7-12.2) H 08/23/16 16:02 INR 1.1 08/23/16 16:02 APTT 34 SECONDS (21-34) 08/23/16 16:02 - Constitutional Appears: Non-toxic, No Acute Distress - Head Exam Head Exam: NORMAL INSPECTION - Eye Exam Eye Exam: Normal appearance - ENT Exam ENT Exam: Mucous Membranes Moist, Normal Exam - Neck Exam Neck Exam: Normal Inspection Additional comments: rt chest permcath - Respiratory Exam Respiratory Exam: Clear to Ausculation Bilateral - Cardiovascular Exam Cardiovascular Exam: REGULAR RHYTHM, RRR - GI/Abdominal Exam GI & Abdominal Exam: Distended, Soft, Normal Bowel Sounds - Extremities Exam Extremities Exam: Normal Inspection Assessment and Plan (1) Renal failure, acute Status: Acute (2) Urinary retention with incomplete bladder emptying Status: Acute (3) CKD (chronic kidney disease) stage 5, GFR less than 15 ml/min Status: Acute - Assessment and Plan (Free Text) Assessment: watch for renal recovery daily chems, strict I/Os ? hd tomorrow outpt placement urology follow up
[2016-08-29] MEDS: Pantoprazole 40 mg EC Tab PO SCH (12:27)
[2016-08-29] MEDS ORDERED: HEPARIN-NS 5,000 UNITS/500 ML 5,000 UNIT/500 ML BAG IV ONE (13:46)
[2016-08-29] MEDS ORDERED: Propofol 10 mg/ml Inj (20 ML) ONE (14:16)
[2016-08-29] MEDS ORDERED: Midazolam 2 MG/2 ML VIAL ONE (14:16)
[2016-08-29] MEDS ORDERED: Sodium Chloride 0.9% 1,000 ML IV ONE ×2 (14:20→16:41)
[2016-08-29] MEDS ORDERED: Dextrose 5%/0.9% NS 1,000 ML IV ONE (14:20)
--- NOTE | 2016-08-29 14:35 | CP.PCM.PN ---
<Nain Stone - Last Filed: 08/29/16 14:36> Subjective - Date & Time of Evaluation Date of Evaluation: 08/29/16 Time of Evaluation: 14:35 - Subjective Subjective: Med progress note. Attending: Dr. Johnson Pt seen and examined at bedside. No acute distress. No events overnight. Pt s/p permacath on the right, will get fistula today. Pt has no complaints, denies fevers, chills, chest pain, sob. Objective - Vital Signs/Intake and Output Vital Signs (last 24 hours): Temp Pulse Resp BP Pulse Ox 98.4 F 72 20 98/52 L 98 08/29/16 07:44 08/29/16 07:44 08/29/16 07:44 08/29/16 07:44 08/29/16 07:44 Intake and Output: 08/29/16 08/29/16 06:59 18:59 Intake Total 350 Output Total 1000 Balance -650 - Medications Medications: Current Medications Calcitriol (Rocaltrol) 0.25 mcg PO DAILY [facility] Last Admin: 08/29/16 12:27 Dose: Not Given Calcium Acetate (Phoslo) 667 mg PO TID [facility] Last Admin: 08/29/16 13:40 Dose: Not Given Epoetin Gulshan (Procrit) 10,000 unit IV MWF [facility] Last Admin: 08/28/16 18:00 Dose: 10,000 unit Piperacillin Sod/Tazobactam Sod (Zosyn 2.25 Gm Iv Premix) 2.25 gm in 50 mls @ 100 mls/hr IVPB Q8H [facility] Last Admin: 08/29/16 09:32 Dose: 100 mls/hr Morphine Sulfate (Morphine) 4 mg IVP Q4 PRN PRN Reason: Pain, moderate (4-7) Pantoprazole Sodium (Protonix Ec Tab) 40 mg PO DAILY [facility] Last Admin: 08/29/16 12:27 Dose: Not Given - Labs Labs: 08/29/16 08:42 08/29/16 08:42 PT 13.0 SECONDS (9.7-12.2) H 08/23/16 16:02 INR 1.1 08/23/16 16:02 APTT 34 SECONDS (21-34) 08/23/16 16:02 - Constitutional Appears: Non-toxic, No Acute Distress - Head Exam Head Exam: ATRAUMATIC, NORMAL INSPECTION, NORMOCEPHALIC - Eye Exam Eye Exam: EOMI - ENT Exam ENT Exam: Mucous Membranes Moist - Neck Exam Neck Exam: Full ROM, Normal Inspection - Respiratory Exam Respiratory Exam: NORMAL BREATHING PATTERN. absent: Respiratory Distress - Cardiovascular Exam Cardiovascular Exam: +S1, +S2 Additional comments: Right permacath - GI/Abdominal Exam GI & Abdominal Exam: Soft, Normal Bowel Sounds. absent: Tenderness - Extremities Exam Extremities Exam: Full ROM, Normal Inspection - Back Exam Back Exam: NORMAL INSPECTION - Neurological Exam Neurological Exam: Alert, Awake, Oriented x3 - Psychiatric Exam Psychiatric exam: Normal Affect, Normal Mood - Skin Skin Exam: Dry, Intact, Normal Color, Warm Assessment and Plan - Assessment and Plan (Free Text) Assessment: This is a 76 yo male with no reported past medical or sx hx presenting with 1) Dyspnea Admitted to ICU on 08/23 for SOB Currently resolved and improved after emergent HD Metabolic acidosis resolved Hemodynamically stable and transferred to regular floor pt now on regular floor with no complaints (2) Renal failure, acute Emergent HD on 08/23 and 08/25, dialysis yesterday 08/28 BUN/Cr 49/3.7, improving Dr Blas consulted- patient scheduled for AV fistula and portacath placement Monday 08/28>>> av fistula today Dr. Altman (renal) following Procrit [id number] MWF Phoslo 667mg PO TID we will add calcitriol .25 daily (3) Urinary retention with incomplete bladder emptying Urologist Dr Zayas consulted- help appreciated Clark catheter in place PSA elevated 10.9 Pt should have cystoscopic evaluation when renal function maximally improved CT abdomen: Moderate to mildly severe bilateral hydronephrosis and hydroureter. The possibility of distal obstruction such as bladder outlet obstruction should be considered. Correlate clinically for possible prostate hypertrophy or prostate cancer. (4) Hematuria Hematuria improving Likely chronic hydronephrosis 2/2 to echogenecity of b/l kidneys on US Dr. Zayas (urology) consulted Pt should have cystoscopic evaluation when renal function maximally improved (5) GI/DVT ppx -protonix daily -SCDs -renal diet Dispo: pt needs to be set up at outpatient dialysis center discussed with Dr. Johnson <Danial Johnson - Last Filed: 05/16/17 17:29> Objective - Vital Signs/Intake and Output Vital Signs (last 24 hours): Temp Pulse Resp BP Pulse Ox 98 F 90 16 100/53 L 100 08/29/16 16:42 08/29/16 16:42 08/29/16 16:42 08/29/16 16:42 08/29/16 16:42 Intake and Output: 08/29/16 08/29/16 06:59 18:59 Intake Total 350 50 Output Total 1000 750 Balance -650 -700 - Medications Medications: Current Medications Calcitriol (Rocaltrol) 0.25 mcg PO DAILY [facility] Last Admin: 08/29/16 12:27 Dose: Not Given Calcium Acetate (Phoslo) 667 mg PO TID [facility] Last Admin: 08/29/16 13:40 Dose: Not Given Epoetin Gulshan (Procrit) 10,000 unit IV MWF [facility] Last Admin: 08/28/16 18:00 Dose: 10,000 unit Hydromorphone HCl (Dilaudid) 0.5 mg IVP Q10M PRN PRN Reason: Pain, moderate (4-7) Piperacillin Sod/Tazobactam Sod (Zosyn 2.25 Gm Iv Premix) 2.25 gm in 50 mls @ 100 mls/hr IVPB Q8H [facility] Last Admin: 08/29/16 09:32 Dose: 100 mls/hr Morphine Sulfate (Morphine) 4 mg IVP Q4 PRN PRN Reason: Pain, moderate (4-7) Pantoprazole Sodium (Protonix Ec Tab) 40 mg PO DAILY [facility] Last Admin: 08/29/16 12:27 Dose: Not Given - Labs Labs: 08/29/16 08:42 08/29/16 08:42 PT 13.0 SECONDS (9.7-12.2) H 08/23/16 16:02 INR 1.1 08/23/16 16:02 APTT 34 SECONDS (21-34) 08/23/16 16:02 Attending/Attestation - Attestation I have personally seen and examined this patient.: Yes I have fully participated in the care of the patient.: Yes I have reviewed all pertinent clinical information, including history, physical exam and plan: Yes Notes (Text): 08/29/16 17:28 Medical Attending: Patient was seen and examined by me with the medical record librarians teacher. Agree with the above note by the resident. The patient now has a permacath at this time. He allowed us to examine him this morning. Later today will be undergoing AVF creation. He will also need HD placement as well. thank you Danial Johnson
[2016-08-29] MEDS ORDERED: Lactated Ringer's 1,000 ML IV ONE (16:07)
[2016-08-29] MEDS ORDERED: HYDROmorphone 0.5 mg/0.5 ml ISec IVP PRN (16:36)
--- NOTE | 2016-08-29 16:43 | PCM.SURG1 ---
Surgeon's Initial Post Op Note - Surgeon's Notes Surgeon: Dr. Blas Caddy: Dr. Gallegos PGY-2 Type of Anesthesia: General LMA Pre-Operative Diagnosis: Renal failure requiring dialysis Operative Findings: see operative report Post-Operative Diagnosis: Renal failure requiring dialysis Operation Performed: Left AV Fistula Specimen/Specimens Removed: none Estimated Blood Loss: EBL {In ML}: 20 Blood Products Given: N/A Drains Used: No Drains Post-Op Condition: Fair Date of Surgery/Procedure: 08/29/16 Time of Surgery/Procedure: 16:43
[2016-08-30] MEDS: Piperacill/Tazo 2.25gm in Dex 2.25 GM/50 ML BAG IVPB SCH ×3 (00:02→17:10)
[2016-08-30 07:48] LABS: BASO # 0.1 K/uL (0.0-0.2); BASO % 1.2 % (0.0-2.0); EOS # 0.5 K/uL (0.0-0.7); EOS % 5.6 % (0.0-4.0); LYMPH # 1.2 K/uL (1.0-4.3); LYMPH % 13.1 % (20.0-40.0); MEAN CELL VOLUME 95.3 fL (80.0-94.0); MEAN CORPUSCULAR HEMOGLOBIN 30.9 pg (27.0-31.0); MEAN CORPUSCULAR HGB CONC 32.4 g/dL (33.0-37.0); MEAN PLATELET VOLUME 8.8 fL (7.2-11.7); MONO # 1.3 K/uL (0.0-0.8); MONO % 14.8 % (0.0-10.0); RED CELL DISTRIBUTION WIDTH 16.8 % (11.5-14.5); WHITE BLOOD COUNT 8.8 K/uL (4.8-10.8)
[2016-08-30 08:13] LABS: POTASSIUM 3.9 mmol/L (3.6-5.2)
[2016-08-30 08:15] LABS: BILIRUBIN,TOTAL 0.6 mg/dL (0.2-1.3); TOTAL PROTEIN 6.4 g/dL (6.3-8.3)
[2016-08-30 08:16] LABS: CALCIUM 7.1 mg/dl (8.6-10.4); MAGNESIUM 1.7 mg/dL (1.6-2.3); PHOSPHOROUS 5.8 mg/dL (2.5-4.5)
[2016-08-30] MEDS: Epoetin Alfa 10,000 unit/ml Dialysis IV SCH (10:13)
[2016-08-30] MEDS: Pantoprazole 40 mg EC Tab PO SCH (11:21)
--- NOTE | 2016-08-30 13:02 | CP.PCM.PN ---
<Nain Stone - Last Filed: 08/30/16 13:02> Subjective - Date & Time of Evaluation Date of Evaluation: 08/30/16 Time of Evaluation: 13:00 - Subjective Subjective: Med progress note. Attending: Dr. Johnson Pt seen and examined at bedside. No acute distress. No events overnight. Pt s/p right permacth and left av fistula. Pt receiving dialysis today. No complaints. Denies fevers, chills, cp, sob, vomiting, diarrhea. Objective - Vital Signs/Intake and Output Vital Signs (last 24 hours): Temp Pulse Resp BP Pulse Ox 97.7 F 60 16 108/63 98 08/30/16 11:50 08/30/16 11:50 08/30/16 11:50 08/30/16 11:50 08/30/16 11:50 Intake and Output: 08/30/16 08/30/16 06:59 18:59 Intake Total 290 Output Total 700 Balance -410 - Medications Medications: Current Medications Calcitriol (Rocaltrol) 0.25 mcg PO DAILY [facility] Last Admin: 08/30/16 11:21 Dose: Not Given Calcium Acetate (Phoslo) 667 mg PO TID [facility] Last Admin: 08/30/16 11:21 Dose: Not Given Epoetin Gulshan (Procrit) 10,000 unit IV MWF [facility] Last Admin: 08/30/16 10:13 Dose: 10,000 unit Hydromorphone HCl (Dilaudid) 0.5 mg IVP Q10M PRN PRN Reason: Pain, moderate (4-7) Piperacillin Sod/Tazobactam Sod (Zosyn 2.25 Gm Iv Premix) 2.25 gm in 50 mls @ 100 mls/hr IVPB Q8H [facility] Last Admin: 08/30/16 08:52 Dose: 100 mls/hr Morphine Sulfate (Morphine) 4 mg IVP Q4 PRN PRN Reason: Pain, moderate (4-7) Pantoprazole Sodium (Protonix Ec Tab) 40 mg PO DAILY [facility] Last Admin: 08/30/16 11:21 Dose: Not Given - Labs Labs: 08/30/16 07:31 08/30/16 07:31 PT 13.0 SECONDS (9.7-12.2) H 08/23/16 16:02 INR 1.1 08/23/16 16:02 APTT 34 SECONDS (21-34) 08/23/16 16:02 - Constitutional Appears: Non-toxic, No Acute Distress - Head Exam Head Exam: ATRAUMATIC, NORMAL INSPECTION, NORMOCEPHALIC - Eye Exam Eye Exam: EOMI - ENT Exam ENT Exam: Mucous Membranes Moist - Neck Exam Neck Exam: Full ROM, Normal Inspection - Respiratory Exam Respiratory Exam: NORMAL BREATHING PATTERN. absent: Respiratory Distress - Cardiovascular Exam Cardiovascular Exam: +S1, +S2 - GI/Abdominal Exam GI & Abdominal Exam: Soft, Normal Bowel Sounds. absent: Tenderness - Extremities Exam Extremities Exam: Full ROM, Normal Inspection - Neurological Exam Neurological Exam: Alert, Awake, Oriented x3 - Psychiatric Exam Psychiatric exam: Normal Affect, Normal Mood - Skin Skin Exam: Dry, Intact, Normal Color, Warm Assessment and Plan - Assessment and Plan (Free Text) Assessment: This is a 76 yo male with no reported past medical or sx hx presenting with 1) Dyspnea Admitted to ICU on 08/23 for SOB Currently resolved and improved after emergent HD Metabolic acidosis resolved Hemodynamically stable and transferred to regular floor pt now on regular floor with no complaints (2) Renal failure, acute Emergent HD on 08/23 and 08/25, dialysis yesterday 08/28 BUN/Cr 49/3.7, improving>> today 52/4 Dr Blas consulted- patient scheduled for AV fistula and portacath placement Monday 08/28>>> av fistula today>> pt now s/p left av fistula Dr. Altman (renal) following Procrit [id number] MWF Phoslo 667mg PO TID we will add calcitriol .25 daily (3) Urinary retention with incomplete bladder emptying Urologist Dr Zayas consulted- help appreciated Clark catheter in place PSA elevated 10.9 Pt should have cystoscopic evaluation when renal function maximally improved CT abdomen: Moderate to mildly severe bilateral hydronephrosis and hydroureter. The possibility of distal obstruction such as bladder outlet obstruction should be considered. Correlate clinically for possible prostate hypertrophy or prostate cancer. (4) Hematuria Hematuria improving Likely chronic hydronephrosis 2/2 to echogenecity of b/l kidneys on US Dr. Zayas (urology) consulted Pt should have cystoscopic evaluation when renal function maximally improved (5) GI/DVT ppx -protonix daily -SCDs -renal diet Dispo: pt needs to be set up at outpatient dialysis center discussed with Dr. Johnson <Danial Johnson - Last Filed: 08/30/16 17:49> Objective - Vital Signs/Intake and Output Vital Signs (last 24 hours): Temp Pulse Resp BP Pulse Ox 97.7 F 82 20 134/73 99 08/30/16 16:00 08/30/16 16:00 08/30/16 16:00 08/30/16 16:00 08/30/16 16:00 Intake and Output: 08/30/16 08/30/16 06:59 18:59 Intake Total 290 290 Output Total 700 800 Balance -410 -510 - Medications Medications: Current Medications Calcitriol (Rocaltrol) 0.25 mcg PO DAILY [facility] Last Admin: 08/30/16 11:21 Dose: Not Given Calcium Acetate (Phoslo) 667 mg PO TID [facility] Last Admin: 08/30/16 17:37 Dose: 667 mg Epoetin Gulshan (Procrit) 10,000 unit IV MWF [facility] Last Admin: 08/30/16 10:13 Dose: 10,000 unit Hydromorphone HCl (Dilaudid) 0.5 mg IVP Q10M PRN PRN Reason: Pain, moderate (4-7) Morphine Sulfate (Morphine) 4 mg IVP Q4 PRN PRN Reason: Pain, moderate (4-7) Pantoprazole Sodium (Protonix Ec Tab) 40 mg PO DAILY [facility] Last Admin: 08/30/16 11:21 Dose: Not Given - Labs Labs: 08/30/16 07:31 08/30/16 07:31 PT 13.0 SECONDS (9.7-12.2) H 08/23/16 16:02 INR 1.1 08/23/16 16:02 APTT 34 SECONDS (21-34) 08/23/16 16:02 Attending/Attestation - Attestation I have personally seen and examined this patient.: Yes I have fully participated in the care of the patient.: Yes I have reviewed all pertinent clinical information, including history, physical exam and plan: Yes Notes (Text): 08/30/16 17:45 Medical Attending: Patient was seen and examined by me. Agree with the above note by the resident. Today he was cooperative enough to allow for exam. Mental status seems better now that he is getting HD. As mentioned above in resident note the patient now has permacath and also an AVF that will take time to mature. The patient currently is pending outpatient HD placement at this time. thank you Danial Johnson
--- NOTE | 2016-08-30 13:42 | CP.PCM.PN ---
Subjective - Date & Time of Evaluation Date of Evaluation: 08/30/16 Time of Evaluation: 13:41 - Subjective Subjective: Alert; s/p dialysis today- UF 1000ml appears much more alert and greatly improved s/p AV fistula- + bruit Labs acceptable; BP stable Objective - Vital Signs/Intake and Output Vital Signs (last 24 hours): Temp Pulse Resp BP Pulse Ox 97.7 F 60 16 108/63 98 08/30/16 11:50 08/30/16 11:50 08/30/16 11:50 08/30/16 11:50 08/30/16 11:50 Intake and Output: 08/30/16 08/30/16 06:59 18:59 Intake Total 290 Output Total 700 Balance -410 - Medications Medications: Current Medications Calcitriol (Rocaltrol) 0.25 mcg PO DAILY [facility] Last Admin: 08/30/16 11:21 Dose: Not Given Calcium Acetate (Phoslo) 667 mg PO TID [facility] Last Admin: 08/30/16 11:21 Dose: Not Given Epoetin Gulshan (Procrit) 10,000 unit IV MWF [facility] Last Admin: 08/30/16 10:13 Dose: 10,000 unit Hydromorphone HCl (Dilaudid) 0.5 mg IVP Q10M PRN PRN Reason: Pain, moderate (4-7) Piperacillin Sod/Tazobactam Sod (Zosyn 2.25 Gm Iv Premix) 2.25 gm in 50 mls @ 100 mls/hr IVPB Q8H [facility] Last Admin: 08/30/16 08:52 Dose: 100 mls/hr Morphine Sulfate (Morphine) 4 mg IVP Q4 PRN PRN Reason: Pain, moderate (4-7) Pantoprazole Sodium (Protonix Ec Tab) 40 mg PO DAILY [facility] Last Admin: 08/30/16 11:21 Dose: Not Given - Labs Labs: 08/30/16 07:31 08/30/16 07:31 PT 13.0 SECONDS (9.7-12.2) H 08/23/16 16:02 INR 1.1 08/23/16 16:02 APTT 34 SECONDS (21-34) 08/23/16 16:02 - Constitutional Appears: No Acute Distress, Chronically Ill - Head Exam Head Exam: ATRAUMATIC, NORMAL INSPECTION - Eye Exam Eye Exam: EOMI, Normal appearance - Neck Exam Neck Exam: Normal Inspection. absent: Tenderness - Respiratory Exam Respiratory Exam: Clear to Ausculation Bilateral, NORMAL BREATHING PATTERN - Cardiovascular Exam Cardiovascular Exam: REGULAR RHYTHM, +S1 - GI/Abdominal Exam GI & Abdominal Exam: Soft. absent: Tenderness - Extremities Exam Extremities Exam: Normal Inspection. absent: Tenderness - Neurological Exam Neurological Exam: Alert, CN II-XII Intact - Skin Skin Exam: Dry, Warm Assessment and Plan (1) Congestive heart failure Status: Acute (2) Metabolic acidosis Status: Acute (3) Renal failure, acute Status: Acute (4) Urinary retention with incomplete bladder emptying Status: Acute (5) CKD (chronic kidney disease) stage 5, GFR less than 15 ml/min Status: Acute (6) ESRD (end stage renal disease) Status: Acute - Assessment and Plan (Free Text) Plan: Dialysis MWF Placement in outpt dialysis unit Same meds Await maturation AV access
--- NOTE | 2016-08-30 16:14 | CP.PCM.PN ---
Subjective - Date & Time of Evaluation Date of Evaluation: 08/30/16 Time of Evaluation: 16:11 - Subjective Subjective: Surgery: Dr. Blas Pt seen and examined. Resting comfortably in bed. No complaints at this time. Objective - Vital Signs/Intake and Output Vital Signs (last 24 hours): Temp Pulse Resp BP Pulse Ox 97.7 F 60 16 108/63 98 08/30/16 11:50 08/30/16 11:50 08/30/16 11:50 08/30/16 11:50 08/30/16 11:50 Intake and Output: 08/30/16 08/30/16 06:59 18:59 Intake Total 290 Output Total 700 Balance -410 - Medications Medications: Current Medications Calcitriol (Rocaltrol) 0.25 mcg PO DAILY [facility] Last Admin: 08/30/16 11:21 Dose: Not Given Calcium Acetate (Phoslo) 667 mg PO TID [facility] Last Admin: 08/30/16 14:37 Dose: 667 mg Epoetin Gulshan (Procrit) 10,000 unit IV MWF [facility] Last Admin: 08/30/16 10:13 Dose: 10,000 unit Hydromorphone HCl (Dilaudid) 0.5 mg IVP Q10M PRN PRN Reason: Pain, moderate (4-7) Piperacillin Sod/Tazobactam Sod (Zosyn 2.25 Gm Iv Premix) 2.25 gm in 50 mls @ 100 mls/hr IVPB Q8H [facility] Last Admin: 08/30/16 08:52 Dose: 100 mls/hr Morphine Sulfate (Morphine) 4 mg IVP Q4 PRN PRN Reason: Pain, moderate (4-7) Pantoprazole Sodium (Protonix Ec Tab) 40 mg PO DAILY [facility] Last Admin: 08/30/16 11:21 Dose: Not Given - Labs Labs: 08/30/16 07:31 08/30/16 07:31 PT 13.0 SECONDS (9.7-12.2) H 08/23/16 16:02 INR 1.1 08/23/16 16:02 APTT 34 SECONDS (21-34) 08/23/16 16:02 - Constitutional Appears: Non-toxic, No Acute Distress - Head Exam Head Exam: ATRAUMATIC, NORMOCEPHALIC - Eye Exam Eye Exam: EOMI. absent: Scleral icterus - ENT Exam ENT Exam: Mucous Membranes Moist - Neck Exam Neck Exam: Full ROM Additional comments: R IJ permacath, dressing in place, C/D/I - Respiratory Exam Respiratory Exam: NORMAL BREATHING PATTERN. absent: Accessory Muscle Use, Respiratory Distress - GI/Abdominal Exam GI & Abdominal Exam: Soft. absent: Distended, Firm, Guarding, Rigid, Tenderness - Extremities Exam Additional comments: LUE snuff box AVF, palpable thrill, audible bruit Assessment and Plan - Assessment and Plan (Free Text) Assessment: 76M w. ESRD, s/p R IJ permacath and LUE snuffbox fistula, POD#1 -Pt is doing well -No further surgical intervention needed at this time -d/w attending Eleni PGY2
[2016-08-30 23:22] LABS: FECAL LEUKOCYTES NEGATIVE (NEGATIVE)
[2016-08-30 23:29] LABS: C DIFF TOXIN A B NEGATIVE (NEGATIVE)
[2016-09-01 09:01] LABS: POTASSIUM 4.2 mmol/L (3.6-5.2)
[2016-09-01 09:03] LABS: BASO # 0.1 K/uL (0.0-0.2); BASO % 1.1 % (0.0-2.0); BILIRUBIN,TOTAL 0.5 mg/dL (0.2-1.3); EOS # 0.4 K/uL (0.0-0.7); HEMATOCRIT 29.6 % (35.0-51.0); LYMPH # 1.2 K/uL (1.0-4.3); LYMPH % 14.2 % (20.0-40.0); MEAN CELL VOLUME 95.8 fL (80.0-94.0); MEAN CORPUSCULAR HEMOGLOBIN 31.5 pg (27.0-31.0); MEAN CORPUSCULAR HGB CONC 32.8 g/dL (33.0-37.0); MEAN PLATELET VOLUME 8.9 fL (7.2-11.7); MONO # 1.2 K/uL (0.0-0.8); MONO % 14.1 % (0.0-10.0); RED CELL DISTRIBUTION WIDTH 16.3 % (11.5-14.5); WHITE BLOOD COUNT 8.4 K/uL (4.8-10.8)
[2016-09-01 09:04] LABS: TOTAL PROTEIN 6.3 g/dL (6.3-8.3)
[2016-09-01 09:05] LABS: CALCIUM 7.8 mg/dl (8.6-10.4); MAGNESIUM 1.7 mg/dL (1.6-2.3)
[2016-09-01] MEDS: Pantoprazole 40 mg EC Tab PO SCH (09:41)
[2016-09-01] MEDS: Epoetin Alfa 10,000 unit/ml Dialysis IV SCH (11:52)
--- NOTE | 2016-09-01 13:10 | CP.PCM.PN ---
Subjective - Date & Time of Evaluation Date of Evaluation: 09/01/16 Time of Evaluation: 13:07 - Subjective Subjective: Stable dialysis this AM- UF 1000ml BP controlled AV fistula with bruit- no discharges Labs acceptable Outpatien dialysis accepted at [facility] still in place Objective - Vital Signs/Intake and Output Vital Signs (last 24 hours): Temp Pulse Resp BP Pulse Ox 97.7 F 73 16 122/72 97 09/01/16 12:00 09/01/16 12:00 09/01/16 12:00 09/01/16 12:00 09/01/16 08:22 Intake and Output: 09/01/16 09/01/16 06:59 18:59 Intake Total 300 Output Total 1400 Balance -1100 - Medications Medications: Current Medications Calcitriol (Rocaltrol) 0.25 mcg PO DAILY [facility] Last Admin: 09/01/16 09:41 Dose: 0.25 mcg Calcium Acetate (Phoslo) 667 mg PO TID [facility] Last Admin: 09/01/16 09:41 Dose: 667 mg Epoetin Gulshan (Procrit) 10,000 unit IV MWF [facility] Last Admin: 09/01/16 11:52 Dose: 10,000 unit Morphine Sulfate (Morphine) 4 mg IVP Q4 PRN PRN Reason: Pain, moderate (4-7) Pantoprazole Sodium (Protonix Ec Tab) 40 mg PO DAILY [facility] Last Admin: 09/01/16 09:41 Dose: 40 mg - Labs Labs: 09/01/16 08:18 09/01/16 08:18 PT 13.0 SECONDS (9.7-12.2) H 08/23/16 16:02 INR 1.1 08/23/16 16:02 APTT 34 SECONDS (21-34) 08/23/16 16:02 - Constitutional Appears: No Acute Distress, Chronically Ill - Head Exam Head Exam: ATRAUMATIC, NORMAL INSPECTION - Eye Exam Eye Exam: EOMI, Normal appearance - Neck Exam Neck Exam: Normal Inspection. absent: Tenderness - Respiratory Exam Respiratory Exam: Clear to Ausculation Bilateral, NORMAL BREATHING PATTERN - Cardiovascular Exam Cardiovascular Exam: REGULAR RHYTHM, +S1 - GI/Abdominal Exam GI & Abdominal Exam: Soft. absent: Tenderness - Extremities Exam Extremities Exam: Normal Inspection. absent: Pedal Edema, Tenderness - Neurological Exam Neurological Exam: Alert, CN II-XII Intact - Skin Skin Exam: Dry, Warm Assessment and Plan (1) Congestive heart failure Status: Resolved (2) Metabolic acidosis Status: Resolved (3) Renal failure, acute Status: Resolved (4) Urinary retention with incomplete bladder emptying Status: Acute (5) CKD (chronic kidney disease) stage 5, GFR less than 15 ml/min Status: Acute (6) ESRD (end stage renal disease) Status: Acute - Assessment and Plan (Free Text) Plan: Same meds Dialysis MWF [facility] as per Outpatient dialysis pending
--- NOTE | 2016-09-01 13:42 | CP.PCM.PN ---
<Nain Stone - Last Filed: 09/01/16 13:43> Subjective - Date & Time of Evaluation Date of Evaluation: 09/01/16 Time of Evaluation: 13:40 - Subjective Subjective: Med progress note. Attending: Dr. Johnson Pt seen and examined at dialysis unit. No acute distress. No events overnight. pt has no complaints. Pending insurance and placement issues. Objective - Vital Signs/Intake and Output Vital Signs (last 24 hours): Temp Pulse Resp BP Pulse Ox 97.7 F 73 16 122/72 97 09/01/16 12:00 09/01/16 12:00 09/01/16 12:00 09/01/16 12:00 09/01/16 08:22 Intake and Output: 09/01/16 09/01/16 06:59 18:59 Intake Total 300 Output Total 1400 Balance -1100 - Medications Medications: Current Medications Calcitriol (Rocaltrol) 0.[address] [facility] Last Admin: 09/01/16 09:41 Dose: 0.25 mcg Calcium Acetate (Phoslo) [address] [facility] Last Admin: 09/01/16 09:41 Dose: 667 mg Epoetin Gulshan (Procrit) 10,[address] [facility] Last Admin: 09/01/16 11:52 Dose: 10,000 unit Pantoprazole Sodium (Protonix Ec Tab) [address] [facility] Last Admin: 09/01/16 09:41 Dose: 40 mg - Labs Labs: 09/01/16 08:18 09/01/16 08:18 PT 13.0 SECONDS (9.7-12.2) H 08/23/16 16:02 INR 1.1 08/23/16 16:02 APTT 34 SECONDS (21-34) 08/23/16 16:02 - Constitutional Appears: Non-toxic, No Acute Distress - Head Exam Head Exam: ATRAUMATIC, NORMAL INSPECTION, NORMOCEPHALIC - Eye Exam Eye Exam: EOMI - ENT Exam ENT Exam: Mucous Membranes Moist - Neck Exam Neck Exam: Full ROM, Normal Inspection - Respiratory Exam Respiratory Exam: NORMAL BREATHING PATTERN. absent: Respiratory Distress - Cardiovascular Exam Cardiovascular Exam: +S1, +S2 - GI/Abdominal Exam GI & Abdominal Exam: Soft, Normal Bowel Sounds. absent: Tenderness - Extremities Exam Extremities Exam: Full ROM, Normal Inspection Additional comments: left av snuffbox fistula with bruit - Back Exam Back Exam: NORMAL INSPECTION - Neurological Exam Neurological Exam: Alert, Awake, Oriented x3 - Psychiatric Exam Psychiatric exam: Normal Affect, Normal Mood - Skin Skin Exam: Dry, Intact, Normal Color, Warm Assessment and Plan - Assessment and Plan (Free Text) Assessment: This is a 76 yo male with no reported past medical or sx hx presenting with 1) Dyspnea Admitted to ICU on 08/23 for SOB Currently resolved and improved after emergent HD Metabolic acidosis resolved Hemodynamically stable and transferred to regular floor pt now on regular floor with no complaints (2) Renal failure, acute Emergent HD on 08/23 and 08/25, dialysis yesterday 08/28, dialysis today 09/01 BUN/Cr 49/3.7, improving>> today 39/3.3 Dr Blas consulted- patient scheduled for AV fistula and portacath placement Monday 08/28>>> av fistula today>> pt now s/p left av fistula Dr. Altman (renal) following Procrit [id number] MWF Phoslo 667mg PO TID we will add calcitriol .25 daily (3) Urinary retention with incomplete bladder emptying Urologist Dr Zayas consulted- help appreciated [facility] catheter in place PSA elevated 10.9 Pt should have cystoscopic evaluation when renal function maximally improved CT abdomen: Moderate to mildly severe bilateral hydronephrosis and hydroureter. The possibility of distal obstruction such as bladder outlet obstruction should be considered. Correlate clinically for possible prostate hypertrophy or prostate cancer. (4) Hematuria Hematuria improving Likely chronic hydronephrosis 2/2 to echogenecity of b/l kidneys on US Dr. Zayas (urology) consulted Pt should have cystoscopic evaluation when renal function maximally improved (5) GI/DVT ppx -protonix daily -SCDs -renal diet Dispo: pt needs to be set up at outpatient dialysis center/insurance issues, pt has not seen doctor before now in over [address] Johnson <Danial Johnson - Last Filed: 09/02/16 07:54> Objective - Vital Signs/Intake and Output Vital Signs (last 24 hours): Temp Pulse Resp BP Pulse Ox 98 F 86 20 116/65 97 09/02/16 00:04 09/02/16 00:04 09/02/16 00:04 09/02/16 00:04 09/02/16 00:04 Intake and Output: 09/02/16 09/02/16 06:59 18:59 Intake Total 300 Output Total 1100 Balance -800 - Medications Medications: Current Medications Calcitriol (Rocaltrol) 0.[address] [facility] Last Admin: 09/01/16 09:41 Dose: 0.25 mcg Calcium Acetate (Phoslo) [address] [facility] Last Admin: 09/01/16 18:04 Dose: 667 mg Epoetin Gulshan (Procrit) 10,[address] [facility] Last Admin: 09/01/16 11:52 Dose: 10,000 unit Pantoprazole Sodium (Protonix Ec Tab) [address] [facility] Last Admin: 09/01/16 09:41 Dose: 40 mg - Labs Labs: 09/01/16 08:18 09/01/16 08:18 PT 13.0 SECONDS (9.7-12.2) H 08/23/16 16:02 INR 1.1 08/23/16 16:02 APTT 34 SECONDS (21-34) 08/23/16 16:02 Attending/Attestation - Attestation I have personally seen and examined this patient.: Yes I have fully participated in the care of the patient.: Yes I have reviewed all pertinent clinical information, including history, physical exam and plan: Yes Notes (Text): 09/02/16 07:53 Medical attending: Patient was seen and examined by me, agrees the above note by certified ophthalmic medical technician. The patient is very alert awake and orientated. He follows all commands. We saw him during dialysis, he stated that he is feeling very well and that he was back to his normal self So at this time I explained to the patient that were currently waiting the for placement of his outpatient dialysis. When I spoke with the caseworkers this is still working process Thank you very much, Danial Johnson
--- NOTE | 2016-09-02 04:31 | CP.PCM.PN ---
<Matteo Jones - Last Filed: 09/02/16 07:34> Subjective - Date & Time of Evaluation Date of Evaluation: 09/02/16 Time of Evaluation: 06:45 - Subjective Subjective: Hospitalist Note-Dr. Johnson's service Patient seen and evaluated at bedside. He is resting comfortably with no complaints. He is awaiting breakfast. He denies any cp/n/v/d/f/c. Per nursing, no acute events over night. Objective - Vital Signs/Intake and Output Vital Signs (last 24 hours): Temp Pulse Resp BP Pulse Ox 98 F 86 20 116/65 97 09/02/16 00:04 09/02/16 00:04 09/02/16 00:04 09/02/16 00:04 09/02/16 00:04 Intake and Output: 09/01/16 09/02/16 18:59 06:59 Intake Total 400 Output Total 1000 Balance -600 - Medications Medications: Current Medications Calcitriol (Rocaltrol) 0.25 mcg PO DAILY [facility] Last Admin: 09/01/16 09:41 Dose: 0.25 mcg Calcium Acetate (Phoslo) 667 mg PO TID [facility] Last Admin: 09/01/16 18:04 Dose: 667 mg Epoetin Gulshan (Procrit) 10,000 unit IV MWF [facility] Last Admin: 09/01/16 11:52 Dose: 10,000 unit Pantoprazole Sodium (Protonix Ec Tab) 40 mg PO DAILY [facility] Last Admin: 09/01/16 09:41 Dose: 40 mg - Labs Labs: 09/01/16 08:18 09/01/16 08:18 PT 13.0 SECONDS (9.7-12.2) H 08/23/16 16:02 INR 1.1 08/23/16 16:02 APTT 34 SECONDS (21-34) 08/23/16 16:02 - Constitutional Appears: Non-toxic, No Acute Distress - Head Exam Head Exam: ATRAUMATIC, NORMOCEPHALIC - Eye Exam Eye Exam: EOMI - ENT Exam ENT Exam: Mucous Membranes Moist - Neck Exam Neck Exam: Normal Inspection - Respiratory Exam Respiratory Exam: NORMAL BREATHING PATTERN. absent: Respiratory Distress - Cardiovascular Exam Cardiovascular Exam: REGULAR RHYTHM, +S1, +S2 - GI/Abdominal Exam GI & Abdominal Exam: Soft, Normal Bowel Sounds. absent: Tenderness - Extremities Exam Extremities Exam: Full ROM, Normal Inspection Additional comments: left av snuffbox fistula with bruit - Back Exam Back Exam: NORMAL INSPECTION - Neurological Exam Neurological Exam: Alert, Awake, Oriented x3 - Psychiatric Exam Psychiatric exam: Normal Affect, Normal Mood - Skin Skin Exam: Dry, Intact, Normal Color, Warm Assessment and Plan - Assessment and Plan (Free Text) Plan: This is a 76 yo male with no reported past medical or sx hx presenting with 1) Dyspnea Admitted to ICU on 08/23 for SOB Currently resolved and improved after emergent HD Metabolic acidosis resolved Hemodynamically stable and transferred to regular floor pt now on regular floor with no complaints (2) Renal failure, acute Emergent HD on 08/23 and 08/25, dialysis yesterday 08/28, dialysis yesterday 09/01 BUN/Cr 49/3.7, improving>> Dr Blas consulted- patient scheduled for AV fistula and portacath placement Monday 08/28>>> pt now s/p left av fistula Dr. Altman (renal) following Procrit [id number] MWF Phoslo 667mg PO TID we will add calcitriol .25 daily (3) Urinary retention with incomplete bladder emptying Urologist Dr Zayas consulted- help appreciated Cox catheter in place PSA elevated 10.9 Pt should have cystoscopic evaluation when renal function maximally improved CT abdomen: Moderate to mildly severe bilateral hydronephrosis and hydroureter. The possibility of distal obstruction such as bladder outlet obstruction should be considered. Correlate clinically for possible prostate hypertrophy or prostate cancer. (4) Hematuria Hematuria improving Likely chronic hydronephrosis 2/2 to echogenecity of b/l kidneys on US Dr. Zayas (urology) consulted Pt should have cystoscopic evaluation when renal function maximally improved (5) GI/DVT ppx -protonix daily -SCDs -renal diet Dispo: pt needs to be set up at outpatient dialysis center/insurance issues, pt has not seen doctor before now in over 40 yrs <Danial Johnson - Last Filed: 09/02/16 15:14> Objective - Vital Signs/Intake and Output Vital Signs (last 24 hours): Temp Pulse Resp BP Pulse Ox 98.4 F 71 20 108/60 98 09/02/16 08:14 09/02/16 08:14 09/02/16 08:14 09/02/16 09:02 09/02/16 08:14 Intake and Output: 09/02/16 09/02/16 06:59 18:59 Intake Total 300 500 Output Total 1100 1000 Balance -800 -500 - Medications Medications: Current Medications Calcitriol (Rocaltrol) 0.25 mcg PO DAILY [facility] Last Admin: 09/02/16 09:09 Dose: 0.25 mcg Calcium Acetate (Phoslo) 667 mg PO TID [facility] Last Admin: 09/02/16 13:20 Dose: 667 mg Epoetin Gulshan (Procrit) 10,000 unit IV MWF [facility] Last Admin: 09/01/16 11:52 Dose: 10,000 unit Pantoprazole Sodium (Protonix Ec Tab) 40 mg PO DAILY [facility] Last Admin: 09/02/16 09:08 Dose: 40 mg - Labs Labs: 09/02/16 08:32 09/02/16 08:32 PT 13.0 SECONDS (9.7-12.2) H 08/23/16 16:02 INR 1.1 08/23/16 16:02 APTT 34 SECONDS (21-34) 08/23/16 16:02 Attending/Attestation - Attestation I have personally seen and examined this patient.: Yes I have fully participated in the care of the patient.: Yes I have reviewed all pertinent clinical information, including history, physical exam and plan: Yes Notes (Text): 09/02/16 15:12 Medical Attending: Patient was doing well. Today we walked out to the nursing station together and helped him with phone call. He does not have family so we called a neighbor whos name is Randell Dick and gave that person an update. Patient was able to ambulate very well, diet is good, he is very alert and active. Hopefully urology can clarify if he still needs to cox or not, he does not have pain - he walks around carrying the cox bag thank you Danial Johnson
[2016-09-02 08:51] LABS: BASO # 0.1 K/uL (0.0-0.2); LYMPH # 1.4 K/uL (1.0-4.3); MONO # 1.7 K/uL (0.0-0.8); NRBC % 0.1 % (0.0-2.0); WHITE BLOOD COUNT 8.6 K/uL (4.8-10.8)
[2016-09-02 09:06] LABS: EOS # 0.3 K/uL (0.0-0.7); HEMATOCRIT 28.6 % (35.0-51.0); LYMPH % 16.7 % (20.0-40.0); MEAN CELL VOLUME 96.2 fL (80.0-94.0); MEAN CORPUSCULAR HEMOGLOBIN 31.7 pg (27.0-31.0); MEAN CORPUSCULAR HGB CONC 32.9 g/dL (33.0-37.0); MEAN PLATELET VOLUME 8.6 fL (7.2-11.7); MONO % 20.2 % (0.0-10.0); RED CELL DISTRIBUTION WIDTH 16.3 % (11.5-14.5)
[2016-09-02 09:07] LABS: BILIRUBIN,TOTAL 0.5 mg/dL (0.2-1.3)
[2016-09-02] MEDS: Pantoprazole 40 mg EC Tab PO SCH ×2 (09:07→09:08)
[2016-09-02 09:08] LABS: ALB/GLOB RATIO 0.9 (1.0-2.1); CALCIUM 7.8 mg/dl (8.6-10.4); MAGNESIUM 1.8 mg/dL (1.6-2.3); PHOSPHOROUS 4.2 mg/dL (2.5-4.5); TOTAL PROTEIN 6.3 g/dL (6.3-8.3)
[2016-09-02 09:10] LABS: PLATELET COUNT 114 K/uL (130-400)
[2016-09-02 10:45] LABS: EOSINOPHIL 2 % (0-4); METAMYELOCYTE 1 % (0-0); MYELOCYTE 2 % (0-0); NEUTROPHIL 50 % (50-75); TOTAL CELLS COUNTED 100
--- NOTE | 2016-09-02 11:01 | CP.PCM.PN ---
Subjective - Date & Time of Evaluation Date of Evaluation: 09/02/16 Time of Evaluation: 11:00 - Subjective Subjective: afebrile hungry dialysis without incident last PM ROS no chills fever no headache dizziness no chest pain sob no abdomenal pain nauseau vomting diarrhea cox in place Objective - Vital Signs/Intake and Output Vital Signs (last 24 hours): Temp Pulse Resp BP Pulse Ox 98.4 F 71 20 108/60 98 09/02/16 08:14 09/02/16 08:14 09/02/16 08:14 09/02/16 09:02 09/02/16 08:14 Intake and Output: 09/02/16 09/02/16 06:59 18:59 Intake Total 300 Output Total 1100 Balance -800 - Medications Medications: Current Medications Calcitriol (Rocaltrol) 0.25 mcg PO DAILY [facility] Last Admin: 09/02/16 09:09 Dose: 0.25 mcg Calcium Acetate (Phoslo) 667 mg PO TID [facility] Last Admin: 09/02/16 09:07 Dose: 667 mg Epoetin Gulshan (Procrit) 10,000 unit IV MWF [facility] Last Admin: 09/01/16 11:52 Dose: 10,000 unit Pantoprazole Sodium (Protonix Ec Tab) 40 mg PO DAILY [facility] Last Admin: 09/02/16 09:08 Dose: 40 mg - Labs Labs: 09/02/16 08:32 09/02/16 08:32 PT 13.0 SECONDS (9.7-12.2) H 08/23/16 16:02 INR 1.1 08/23/16 16:02 APTT 34 SECONDS (21-34) 08/23/16 16:02 - Constitutional Appears: No Acute Distress - ENT Exam ENT Exam: Mucous Membranes Moist - Respiratory Exam Respiratory Exam: Clear to Ausculation Bilateral - Cardiovascular Exam Cardiovascular Exam: REGULAR RHYTHM. absent: JVD - GI/Abdominal Exam GI & Abdominal Exam: Soft. absent: Distended, Tenderness - Exam Additional comments: cox in place - Back Exam Back Exam: absent: CVA tenderness (L), CVA tenderness (R) - Neurological Exam Neurological Exam: Alert, Awake - Psychiatric Exam Psychiatric exam: Normal Mood - Skin Skin Exam: Dry, Warm Assessment and Plan (1) ESRD (end stage renal disease) Status: Acute (2) Urinary retention with incomplete bladder emptying Status: Acute (3) Congestive heart failure Status: Resolved - Assessment and Plan (Free Text) Plan: schedule dialysis 09/04 follow urology recommendations
--- NOTE | 2016-09-03 03:53 | CP.PCM.PN ---
<Matteo Jones - Last Filed: 09/03/16 06:51> Subjective - Date & Time of Evaluation Date of Evaluation: 09/03/16 Time of Evaluation: 06:30 - Subjective Subjective: Hospitalist Note-Dr. Johnson's service Patient seen and evaluated at bedside. He is resting comfortably with no complaints. He denies any cp/n/v/d/f/c. Per nursing, no acute events over night. Objective - Vital Signs/Intake and Output Vital Signs (last 24 hours): Temp Pulse Resp BP Pulse Ox 97.4 F L 79 20 129/63 99 09/03/16 00:00 09/03/16 00:00 09/03/16 00:00 09/03/16 00:00 09/03/16 00:00 Intake and Output: 09/02/16 09/03/16 18:59 06:59 Intake Total 500 700 Output Total 1000 950 Balance -500 -250 - Medications Medications: Current Medications Calcitriol (Rocaltrol) 0.25 mcg PO DAILY [facility] Last Admin: 09/02/16 09:09 Dose: 0.25 mcg Calcium Acetate (Phoslo) 667 mg PO TID [facility] Last Admin: 09/02/16 17:49 Dose: 667 mg Epoetin Gulshan (Procrit) 10,000 unit IV MWF [facility] Last Admin: 09/01/16 11:52 Dose: 10,000 unit Pantoprazole Sodium (Protonix Ec Tab) 40 mg PO DAILY [facility] Last Admin: 09/02/16 09:08 Dose: 40 mg - Labs Labs: 09/02/16 08:32 09/02/16 08:32 PT 13.0 SECONDS (9.7-12.2) H 08/23/16 16:02 INR 1.1 08/23/16 16:02 APTT 34 SECONDS (21-34) 08/23/16 16:02 - Constitutional Appears: Non-toxic, No Acute Distress - Head Exam Head Exam: ATRAUMATIC, NORMOCEPHALIC - Eye Exam Eye Exam: EOMI - ENT Exam ENT Exam: Mucous Membranes Moist - Neck Exam Neck Exam: Normal Inspection - Respiratory Exam Respiratory Exam: NORMAL BREATHING PATTERN. absent: Respiratory Distress - Cardiovascular Exam Cardiovascular Exam: REGULAR RHYTHM, +S1, +S2 - GI/Abdominal Exam GI & Abdominal Exam: Soft, Normal Bowel Sounds. absent: Tenderness - Extremities Exam Extremities Exam: Full ROM, Normal Inspection Additional comments: left av snuffbox fistula with bruit - Back Exam Back Exam: NORMAL INSPECTION - Neurological Exam Neurological Exam: Alert, Awake, Oriented x3 - Psychiatric Exam Psychiatric exam: Normal Affect, Normal Mood - Skin Skin Exam: Dry, Intact, Normal Color, Warm Assessment and Plan - Assessment and Plan (Free Text) Plan: This is a 76 yo male with no reported past medical or sx hx presenting with 1) Dyspnea Admitted to ICU on 08/23 for SOB Currently resolved and improved after emergent HD Metabolic acidosis resolved Hemodynamically stable and transferred to regular floor pt now on regular floor with no complaints (2) Renal failure, acute BUN/Cr 49/3.7, improving>> 34/3.1 Dr Blas consulted- patient scheduled for AV fistula and portacath placement Monday 08/28>>> pt now s/p left av fistula Dr. Altman (renal) following Procrit [id number] MWF Phoslo 667mg PO TID continue calcitriol .25 daily (3) Urinary retention with incomplete bladder emptying Urologist Dr Zayas consulted- help appreciated Clark catheter in place PSA elevated 10.9 Pt should have cystoscopic evaluation when renal function maximally improved CT abdomen: Moderate to mildly severe bilateral hydronephrosis and hydroureter. The possibility of distal obstruction such as bladder outlet obstruction should be considered. Correlate clinically for possible prostate hypertrophy or prostate cancer. (4) Hematuria Hematuria improving Likely chronic hydronephrosis 2/2 to echogenecity of b/l kidneys on US Dr. Zayas (urology) consulted Pt should have cystoscopic evaluation when renal function maximally improved (5) GI/DVT ppx -protonix daily -SCDs -renal diet Dispo: pt needs to be set up at outpatient dialysis center/insurance issues, pt has not seen doctor before now in over 40 yrs <Danial Johnson - Last Filed: 09/03/16 12:19> Objective - Vital Signs/Intake and Output Vital Signs (last 24 hours): Temp Pulse Resp BP Pulse Ox 98.3 F 89 20 120/79 99 09/03/16 08:33 09/03/16 08:33 09/03/16 08:33 09/03/16 08:33 09/03/16 08:33 Intake and Output: 09/03/16 09/03/16 06:59 18:59 Intake Total 900 Output Total 2450 Balance -1550 - Medications Medications: Current Medications Calcitriol (Rocaltrol) 0.25 mcg PO DAILY [facility] Last Admin: 09/03/16 10:37 Dose: 0.25 mcg Calcium Acetate (Phoslo) 667 mg PO TID [facility] Last Admin: 09/03/16 10:37 Dose: 667 mg Epoetin Gulshan (Procrit) 10,000 unit IV MWF [facility] Last Admin: 09/01/16 11:52 Dose: 10,000 unit Pantoprazole Sodium (Protonix Ec Tab) 40 mg PO DAILY [facility] Last Admin: 09/03/16 10:37 Dose: 40 mg - Labs Labs: 09/03/16 07:45 09/03/16 07:45 PT 13.0 SECONDS (9.7-12.2) H 08/23/16 16:02 INR 1.1 08/23/16 16:02 APTT 34 SECONDS (21-34) 08/23/16 16:02 Attending/Attestation - Attestation I have personally seen and examined this patient.: Yes I have fully participated in the care of the patient.: Yes I have reviewed all pertinent clinical information, including history, physical exam and plan: Yes
[2016-09-03 07:50] LABS: BASO # 0.1 K/uL (0.0-0.2); BASO % 1.3 % (0.0-2.0); EOS # 0.4 K/uL (0.0-0.7); EOS % 4.5 % (0.0-4.0); HEMATOCRIT 29.8 % (35.0-51.0); LYMPH % 12.1 % (20.0-40.0); MEAN CELL VOLUME 97.2 fL (80.0-94.0); MEAN CORPUSCULAR HEMOGLOBIN 30.6 pg (27.0-31.0); MEAN CORPUSCULAR HGB CONC 31.5 g/dL (33.0-37.0); MEAN PLATELET VOLUME 8.8 fL (7.2-11.7); MONO # 1.5 K/uL (0.0-0.8); MONO % 18.8 % (0.0-10.0); PLATELET COUNT 117 K/uL (130-400); RED CELL DISTRIBUTION WIDTH 16.2 % (11.5-14.5); WHITE BLOOD COUNT 8.1 K/uL (4.8-10.8)
[2016-09-03 08:11] LABS: POTASSIUM 3.9 mmol/L (3.6-5.2)
[2016-09-03 08:13] LABS: BILIRUBIN,TOTAL 0.6 mg/dL (0.2-1.3)
[2016-09-03 08:14] LABS: TOTAL PROTEIN 6.4 g/dL (6.3-8.3)
[2016-09-03 08:58] LABS: EOSINOPHIL 3 % (0-4); METAMYELOCYTE 3 % (0-0); MYELOCYTE 1 % (0-0); NEUTROPHIL 60 % (50-75); NUCLEATED RED BLOOD CELL 1 % (0-0); TOTAL CELLS COUNTED 100
[2016-09-03] MEDS: Pantoprazole 40 mg EC Tab PO SCH (10:37)
[2016-09-04 06:14] LABS: BASO # 0.1 K/uL (0.0-0.2); BASO % 0.8 % (0.0-2.0); EOS # 0.4 K/uL (0.0-0.7); EOS % 4.9 % (0.0-4.0); HEMATOCRIT 28.1 % (35.0-51.0); LYMPH # 1.2 K/uL (1.0-4.3); MEAN CELL VOLUME 96.1 fL (80.0-94.0); MEAN CORPUSCULAR HEMOGLOBIN 31.6 pg (27.0-31.0); MEAN CORPUSCULAR HGB CONC 32.8 g/dL (33.0-37.0); MEAN PLATELET VOLUME 9.1 fL (7.2-11.7); MONO # 1.7 K/uL (0.0-0.8); MONO % 18.6 % (0.0-10.0); PLATELET COUNT 121 K/uL (130-400); RED CELL DISTRIBUTION WIDTH 16.1 % (11.5-14.5)
[2016-09-04 06:30] LABS: BILIRUBIN,TOTAL 0.5 mg/dL (0.2-1.3); TOTAL PROTEIN 5.9 g/dL (6.3-8.3)
[2016-09-04 06:31] LABS: CALCIUM 8.1 mg/dl (8.6-10.4)
[2016-09-04 08:43] LABS: BASOPHIL 1 % (0-2); EOSINOPHIL 5 % (0-4); MYELOCYTE 2 % (0-0); NEUTROPHIL 55 % (50-75); TOTAL CELLS COUNTED 100
[2016-09-04] MEDS: Epoetin Alfa 10,000 unit/ml Dialysis IV SCH (09:41)
--- NOTE | 2016-09-04 10:50 | CP.PCM.PN ---
Subjective - Date & Time of Evaluation Date of Evaluation: 09/04/16 Time of Evaluation: 10:48 - Subjective Subjective: Seen at dialysis- to UF 1500ml Feels well now No n,v,d, f, c, CPs Awaiting discharge plans Labs reviewed- stable Objective - Vital Signs/Intake and Output Vital Signs (last 24 hours): Temp Pulse Resp BP Pulse Ox 97.9 F 65 18 111/67 100 09/04/16 09:00 09/04/16 09:00 09/04/16 09:00 09/04/16 10:30 09/04/16 09:00 Intake and Output: 09/04/16 09/04/16 06:59 18:59 Intake Total 750 300 Output Total 1100 700 Balance -350 -400 - Medications Medications: Current Medications Calcitriol (Rocaltrol) 0.25 mcg PO DAILY [facility] Last Admin: 09/03/16 10:37 Dose: 0.25 mcg Calcium Acetate (Phoslo) 667 mg PO TID [facility] Last Admin: 09/03/16 17:00 Dose: 667 mg Epoetin Gulshan (Procrit) 10,000 unit IV MWF [facility] Last Admin: 09/04/16 09:41 Dose: 10,000 unit Pantoprazole Sodium (Protonix Ec Tab) 40 mg PO DAILY [facility] Last Admin: 09/03/16 10:37 Dose: 40 mg - Labs Labs: 09/04/16 05:59 09/04/16 05:59 PT 13.0 SECONDS (9.7-12.2) H 08/23/16 16:02 INR 1.1 08/23/16 16:02 APTT 34 SECONDS (21-34) 08/23/16 16:02 - Constitutional Appears: Non-toxic, No Acute Distress - Eye Exam Eye Exam: EOMI, Normal appearance - Neck Exam Neck Exam: Normal Inspection. absent: Tenderness - Respiratory Exam Respiratory Exam: Clear to Ausculation Bilateral, NORMAL BREATHING PATTERN - Cardiovascular Exam Cardiovascular Exam: REGULAR RHYTHM, +S1 - GI/Abdominal Exam GI & Abdominal Exam: Soft. absent: Tenderness - Extremities Exam Extremities Exam: Normal Inspection. absent: Tenderness - Neurological Exam Neurological Exam: Alert, CN II-XII Intact - Skin Skin Exam: Dry, Warm Assessment and Plan (1) Congestive heart failure Status: Resolved (2) Renal failure, acute Status: Resolved (3) Urinary retention with incomplete bladder emptying Status: Acute (4) CKD (chronic kidney disease) stage 5, GFR less than 15 ml/min Status: Acute (5) ESRD (end stage renal disease) Status: Acute - Assessment and Plan (Free Text) Plan: Same dialysis schedule Same meds stable for discharge- await placement for outpt dialysis
--- NOTE | 2016-09-04 11:19 | CP.PCM.PN ---
<Nain Stone - Last Filed: 09/04/16 11:19> Subjective - Date & Time of Evaluation Date of Evaluation: 09/04/16 Time of Evaluation: 11:15 - Subjective Subjective: Med progress note. Attending: Dr. Johnson Pt seen and examined at bedside. No acute distress. Pt getting dialysis. Pt eating a lot and has no complaints. No distress. No events overnight. Pending financial clearance. Objective - Vital Signs/Intake and Output Vital Signs (last 24 hours): Temp Pulse Resp BP Pulse Ox 97.9 F 65 18 108/57 L 100 09/04/16 09:00 09/04/16 09:00 09/04/16 09:00 09/04/16 11:00 09/04/16 09:00 Intake and Output: 09/04/16 09/04/16 06:59 18:59 Intake Total 750 300 Output Total 1100 700 Balance -350 -400 - Medications Medications: Current Medications Calcitriol (Rocaltrol) 0.25 mcg PO DAILY [facility] Last Admin: 09/03/16 10:37 Dose: 0.25 mcg Calcium Acetate (Phoslo) 667 mg PO TID [facility] Last Admin: 09/03/16 17:00 Dose: 667 mg Epoetin Gulshan (Procrit) 10,000 unit IV MWF [facility] Last Admin: 09/04/16 09:41 Dose: 10,000 unit Pantoprazole Sodium (Protonix Ec Tab) 40 mg PO DAILY [facility] Last Admin: 09/03/16 10:37 Dose: 40 mg - Labs Labs: 09/04/16 05:59 09/04/16 05:59 PT 13.0 SECONDS (9.7-12.2) H 08/23/16 16:02 INR 1.1 08/23/16 16:02 APTT 34 SECONDS (21-34) 08/23/16 16:02 - Constitutional Appears: Non-toxic, No Acute Distress - Head Exam Head Exam: ATRAUMATIC, NORMAL INSPECTION, NORMOCEPHALIC - Eye Exam Eye Exam: EOMI - ENT Exam ENT Exam: Mucous Membranes Moist - Neck Exam Neck Exam: Full ROM, Normal Inspection - Respiratory Exam Respiratory Exam: NORMAL BREATHING PATTERN. absent: Respiratory Distress - Cardiovascular Exam Cardiovascular Exam: +S1, +S2 - GI/Abdominal Exam GI & Abdominal Exam: Soft, Normal Bowel Sounds. absent: Tenderness - Extremities Exam Extremities Exam: Full ROM, Normal Inspection - Neurological Exam Neurological Exam: Alert, Awake, Oriented x3 - Psychiatric Exam Psychiatric exam: Normal Affect, Normal Mood - Skin Skin Exam: Dry, Intact, Normal Color, Warm Assessment and Plan - Assessment and Plan (Free Text) Assessment: This is a 76 yo male with no reported past medical or sx hx presenting with 1) Dyspnea Admitted to ICU on 08/23 for SOB Currently resolved and improved after emergent HD Metabolic acidosis resolved Hemodynamically stable and transferred to regular floor pt now on regular floor with no complaints (2) Renal failure, acute BUN/Cr 49/3.7, improving>> 34/3.1>> 56/3.[address] Blas consulted- patient scheduled for AV fistula and portacath placement Monday 08/28>>> pt now s/p left av fistula Dr. Altman (renal) following Procrit [id number] MWF Phoslo 667mg PO TID continue calcitriol .25 mcg daily (3) Urinary retention with incomplete bladder emptying Urologist Dr Zayas consulted- help appreciated Cox catheter in place PSA elevated 10.9 Pt should have cystoscopic evaluation when renal function maximally improved CT abdomen: Moderate to mildly severe bilateral hydronephrosis and hydroureter. The possibility of distal obstruction such as bladder outlet obstruction should be considered. Correlate clinically for possible prostate hypertrophy or prostate cancer. Pt will need to be discharged with cox (4) Hematuria Hematuria improving Likely chronic hydronephrosis 2/2 to echogenecity of b/l kidneys on US Dr. Zayas (urology) consulted Pt should have cystoscopic evaluation when renal function maximally improved (5) GI/DVT ppx -protonix daily -SCDs -renal diet Dispo: pt needs to be set up at outpatient dialysis center/insurance issues, pt has not seen doctor before now in over 40 yrs <Danial Johnson - Last Filed: 09/04/16 17:18> Objective - Vital Signs/Intake and Output Vital Signs (last 24 hours): Temp Pulse Resp BP Pulse Ox 98.3 F 79 20 120/60 100 09/04/16 16:51 09/04/16 16:51 09/04/16 16:51 09/04/16 16:51 09/04/16 16:51 Intake and Output: 09/04/16 09/04/16 06:59 18:59 Intake Total 750 300 Output Total 1100 700 Balance -350 -400 - Medications Medications: Current Medications Calcitriol (Rocaltrol) 0.25 mcg PO DAILY [facility] Last Admin: 09/04/16 13:19 Dose: 0.25 mcg Calcium Acetate (Phoslo) 667 mg PO TID [facility] Last Admin: 09/04/16 13:19 Dose: 667 mg Epoetin Gulshan (Procrit) 10,000 unit IV MWF [facility] Last Admin: 09/04/16 09:41 Dose: 10,000 unit Pantoprazole Sodium (Protonix Ec Tab) 40 mg PO DAILY [facility] Last Admin: 09/04/16 13:19 Dose: 40 mg - Labs Labs: 09/04/16 05:59 09/04/16 05:59 PT 13.0 SECONDS (9.7-12.2) H 08/23/16 16:02 INR 1.1 08/23/16 16:02 APTT 34 SECONDS (21-34) 08/23/16 16:02 Attending/Attestation - Attestation I have personally seen and examined this patient.: Yes I have fully participated in the care of the patient.: Yes I have reviewed all pertinent clinical information, including history, physical exam and plan: Yes Notes (Text): 09/04/16 17:17 Medical Attending: Patient was seen and examined by me. We are still in the waiting period I am told by the case workers until he can be set up with Medicare Part B to cover outpatient services. Otherwise he looks well, very talkative. He has been in contact with his neighbors. thank you Danial Johnson
[2016-09-04] MEDS: Pantoprazole 40 mg EC Tab PO SCH (13:19)
[2016-09-04 16:46] VITALS: RESP 20
[2016-09-05 08:22] LABS: BASO # 0.1 K/uL (0.0-0.2); EOS # 0.4 K/uL (0.0-0.7); EOS % 4.9 % (0.0-4.0); HEMATOCRIT 32.3 % (35.0-51.0); LYMPH # 1.6 K/uL (1.0-4.3); LYMPH % 17.6 % (20.0-40.0); MEAN CORPUSCULAR HEMOGLOBIN 31.4 pg (27.0-31.0); MEAN CORPUSCULAR HGB CONC 32.4 g/dL (33.0-37.0); MEAN PLATELET VOLUME 8.6 fL (7.2-11.7); MONO # 1.5 K/uL (0.0-0.8); MONO % 17.1 % (0.0-10.0); RED CELL DISTRIBUTION WIDTH 16.5 % (11.5-14.5)
[2016-09-05 09:01] LABS: POTASSIUM 4.2 mmol/L (3.6-5.2)
[2016-09-05 09:03] LABS: BILIRUBIN,TOTAL 0.5 mg/dL (0.2-1.3)
[2016-09-05 09:04] LABS: PHOSPHOROUS 3.7 mg/dL (2.5-4.5); TOTAL PROTEIN 6.9 g/dL (6.3-8.3)
--- NOTE | 2016-09-05 10:40 | CP.PCM.PN ---
Subjective - Date & Time of Evaluation Date of Evaluation: 09/05/16 Time of Evaluation: 10:39 - Subjective Subjective: no complaints hd yesterday unremarkable good uop-cox in place s/p av fistula low bp noted Objective - Vital Signs/Intake and Output Vital Signs (last 24 hours): Temp Pulse Resp BP Pulse Ox 96.6 F L 67 20 104/62 99 09/05/16 08:30 09/05/16 08:30 09/05/16 08:30 09/05/16 08:30 09/05/16 08:30 Intake and Output: 09/05/16 09/05/16 06:59 18:59 Intake Total 400 Output Total 2000 Balance -1600 - Medications Medications: Current Medications Calcitriol (Rocaltrol) 0.25 mcg PO DAILY [facility] Last Admin: 09/04/16 13:19 Dose: 0.25 mcg Calcium Acetate (Phoslo) 667 mg PO TIDCC [facility] Last Admin: 09/05/16 08:31 Dose: 667 mg Epoetin Gulshan (Procrit) 10,000 unit IV MWF [facility] Last Admin: 09/04/16 09:41 Dose: 10,000 unit Pantoprazole Sodium (Protonix Ec Tab) 40 mg PO DAILY [facility] Last Admin: 09/04/16 13:19 Dose: 40 mg - Labs Labs: 09/05/16 08:14 09/05/16 08:14 PT 13.0 SECONDS (9.7-12.2) H 08/23/16 16:02 INR 1.1 08/23/16 16:02 APTT 34 SECONDS (21-34) 08/23/16 16:02 - Constitutional Appears: Non-toxic, No Acute Distress, Chronically Ill - Head Exam Head Exam: NORMAL INSPECTION - Eye Exam Eye Exam: Normal appearance - ENT Exam ENT Exam: Mucous Membranes Moist, Normal Exam - Neck Exam Neck Exam: Normal Inspection - Respiratory Exam Respiratory Exam: Clear to Ausculation Bilateral, NORMAL BREATHING PATTERN - Cardiovascular Exam Cardiovascular Exam: REGULAR RHYTHM, RRR - GI/Abdominal Exam GI & Abdominal Exam: Soft, Normal Bowel Sounds - Exam Exam: NORMAL INSPECTION (cox ) - Extremities Exam Extremities Exam: Normal Inspection (lue avf w/ thrill) - Neurological Exam Neurological Exam: Alert, Oriented x3 Assessment and Plan (1) Renal failure, acute Status: Resolved (2) Urinary retention with incomplete bladder emptying Status: Acute (3) CKD (chronic kidney disease) stage 5, GFR less than 15 ml/min Status: Acute - Assessment and Plan (Free Text) Assessment: watch for renal recovery, good uop, declining creatinine urology follow up for cystoscopy indwelling cox
[2016-09-05] MEDS: Pantoprazole 40 mg EC Tab PO SCH (10:48)
[2016-09-05 15:57] VITALS: BP 140/68; PULSE 115; TEMP 97.5; O2SAT 95
[2016-09-05] MEDS ORDERED: Pneumococcal 23-Valent Vaccine IM ONE (16:52)
--- NOTE | 2016-09-05 16:52 | CP.PCM.DIS ---
<Nain Stone - Last Filed: 09/05/16 16:55> Provider - Provider Date of Admission: 08/23/16 14:14 Attending physician: Bonifacio Garcia MD Consults: Dr. Altman= Nephrology Dr. Zayas- urology Time Spent in preparation of Discharge (in minutes): 45 Hospital Course - Lab Results Lab Results: Micro Results 08/30/16 Unknown Stool Stool Culture - Final NO SALMONELLA, SHIGELLA OR CAMPYLOBACTER ISOLATED. 08/30/16 Unknown Stool Ova and Parasite Concentrate Exam - Final 08/27/16 12:37 Naris MRSA Culture - Final MRSA NOT DETECTED 08/23/16 15:18 Naris MRSA Culture (Admit) - Final MRSA NOT DETECTED Most Recent Lab Values WBC 9.0 K/uL (4.8-10.8) 09/05/16 08:14 RBC 3.33 Mil/uL (4.40-5.90) L 09/05/16 08:14 Hgb 10.5 g/dL (12.0-18.0) L 09/05/16 08:14 Hct 32.3 % (35.0-51.0) L 09/05/16 08:14 MCV 97.0 fL (80.0-94.0) H 09/05/16 08:14 MCH 31.4 pg (27.0-31.0) H 09/05/16 08:14 MCHC 32.4 g/dL (33.0-37.0) L 09/05/16 08:14 RDW 16.5 % (11.5-14.5) H 09/05/16 08:14 Plt Count 134 K/uL (130-400) 09/05/16 08:14 MPV 8.6 fL (7.2-11.7) 09/05/16 08:14 Neut % (Auto) 59.4 % (50.0-75.0) 09/05/16 08:14 Lymph % (Auto) 17.6 % (20.0-40.0) L 09/05/16 08:14 [place] % (Auto) 17.1 % (0.0-10.0) H 09/05/16 08:14 Eos % (Auto) 4.9 % (0.0-4.0) H 09/05/16 08:14 Baso % (Auto) 1.0 % (0.0-2.0) 09/05/16 08:14 Neut # 5.4 K/uL (1.8-7.0) 09/05/16 08:14 Lymph # 1.6 K/uL (1.0-4.3) 09/05/16 08:14 [place] # 1.5 K/uL (0.0-0.8) H 09/05/16 08:14 Eos # 0.4 K/uL (0.0-0.7) 09/05/16 08:14 Baso # 0.1 K/uL (0.0-0.2) 09/05/16 08:14 Neutrophils % (Manual) 55 % (50-75) 09/04/16 05:59 Band Neutrophils % 4 % (0-2) H 09/04/16 05:59 Lymphocytes % (Manual) 16 % (20-40) L 09/04/16 05:59 Monocytes % (Manual) 17 % (0-10) H 09/04/16 05:59 Eosinophils % (Manual) 5 % (0-4) H 09/04/16 05:59 Basophils % (Manual) 1 % (0-2) 09/04/16 05:59 Metamyelocytes % 3 % (0-0) H 09/03/16 07:45 Myelocytes % 2 % (0-0) H 09/04/16 05:59 Nucleated RBC % 1 % (0-0) H 09/03/16 07:45 Differential Comment 08/27/16 06:20 Toxic Granulation Present 09/04/16 05:59 Platelet Estimate Slightly decreased (NORMAL) L 09/04/16 05:59 Polychromasia Slight 09/03/16 07:45 Hypochromasia (manual) Slight 09/03/16 07:45 Poikilocytosis (manual Slight 08/24/16 06:03 Anisocytosis (manual) Slight 09/04/16 05:59 Microcytosis (manual) Slight 08/24/16 06:03 Macrocytosis (manual) Slight 08/24/16 06:03 Tear Drop Cells Slight 08/23/16 11:14 Ovalocytes Slight 09/02/16 08:32 Sergei Cells Slight 08/24/16 06:03 PT 13.0 SECONDS (9.7-12.2) H 08/23/16 16:02 INR 1.1 08/23/16 16:02 APTT 34 SECONDS (21-34) 08/23/16 16:02 pO2 30 mm/Hg (30-55) 08/23/16 13:22 VBG pH 7.12 (7.32-7.43) L* 08/23/16 13:22 VBG pCO2 26 mmHg (40-60) L 08/23/16 13:22 VBG HCO3 8.1 mmol/L 08/23/16 13:22 VBG Total CO2 9.3 mmol/L (22-28) L 08/23/16 13:22 VBG O2 Sat (Calc) 60.0 % (40-65) 08/23/16 13:22 VBG Base Excess -19.4 mmol/L (0.0-2.0) L 08/23/16 13:22 VBG Potassium 4.3 mmol/L (3.6-5.2) 08/23/16 13:22 Sodium 141.0 mmol/l (132-148) 08/23/16 13:22 Chloride 115.0 mmol/L (98-107) H 08/23/16 13:22 Glucose 81 mg/dl (75-110) 08/23/16 13:22 Lactate 0.8 mmol/L (0.7-2.1) 08/23/16 13:22 Crit Value Called To 08/23/16 13:22 Crit Value Called By Chin conn,whittling room operator 08/23/16 13:22 Crit Value Read Back Y 08/23/16 13:22 Blood Gas Notified Time 1330 08/23/16 13:22 Sodium 137 mmol/L (132-148) 09/05/16 08:14 Potassium 4.2 mmol/L (3.6-5.2) 09/05/16 08:14 Chloride 99 mmol/L (98-107) 09/05/16 08:14 Carbon Dioxide 27 mmol/L (22-30) 09/05/16 08:14 Anion Gap 16 (10-20) 09/05/16 08:14 BUN 42 mg/dL (9-20) H 09/05/16 08:14 Creatinine 2.9 MG/DL (0.8-1.5) H 09/05/16 08:14 Est GFR ( Amer) 26 09/05/16 08:14 Est GFR (Non-Af Amer) 09/05/16 08:14 Random Glucose 82 mg/dL (75-110) 09/05/16 08:14 Calcium 8.0 mg/dl (8.6-10.4) L 09/05/16 08:14 Phosphorus 3.7 mg/dL (2.5-4.5) 09/05/16 08:14 Magnesium 2.0 mg/dL (1.6-2.3) 09/05/16 08:14 % Saturation 23 (20-55) 08/27/16 06:18 Ferritin 178.0 ng/mL 08/24/16 11:51 Total Bilirubin 0.5 mg/dL (0.2-1.3) 09/05/16 08:14 AST 17 U/L (17-59) 09/05/16 08:14 ALT 13 U/L (21-72) L 09/05/16 08:14 Alkaline Phosphatase 72 U/L (38-126) 09/05/16 08:14 Total Creatine Kinase 140 U/L (55-170) 08/23/16 11:14 CK-MB (Mass) 11.7 ng/mL (0.0-3.38) H 08/23/16 11:14 Troponin I, Quant 0.0730 ng/mL (0.00-0.120) 08/23/16 11:14 NT-Pro-B Natriuret Pep 62209 pg/mL (0-900) H 08/23/16 11:14 Total Protein 6.9 g/dL (6.3-8.3) 09/05/16 08:14 Albumin 3.5 g/dL (3.5-5.0) 09/05/16 08:14 Globulin 3.4 gm/dL (2.2-3.9) 09/05/16 08:14 Albumin/Globulin Ratio 1.0 (1.0-2.1) 09/05/16 08:14 Prostate Specific Ag 10.9 ng/mL (0.00-4.0) H 08/25/16 06:02 PTH Intact Whole Molec 298 pg/mL (14-64) H 08/24/16 11:51 Venous Blood Potassium 4.3 mmol/L (3.6-5.2) 08/23/16 13:22 Urine Color Straw (YELLOW) 08/23/16 15:26 Urine Clarity Clear (Clear) 08/23/16 15:26 Urine pH 5.0 (5.0-8.0) 08/23/16 15:26 Ur Specific [place] 1.008 (1.003-1.030) 08/23/16 15:26 Urine Protein Negative mg/dL (NEGATIVE) 08/23/16 15:26 Urine Glucose (UA) 1+ mg/dL (Normal) H 08/23/16 15:26 Urine Ketones Negative mg/dL (NEGATIVE) 08/23/16 15:26 Urine Blood 1+ (NEGATIVE) H 08/23/16 15: Urine Nitrate Negative (NEGATIVE) 08/23/16 15: Urine Bilirubin Negative (NEGATIVE) 08/23/16 15:26 Urine Urobilinogen Normal mg/dL (0.2-1.0) 08/23/16 15:26 Ur Leukocyte Esterase Neg [place]/uL (Negative) 08/23/16 15:26 Urine WBC (Auto) 1 /hpf (0-5) 08/23/16 15:26 Urine RBC (Auto) 6 /hpf (0-3) H 08/23/16 15:26 Ur Squamous Epith Cells < 1 /hpf (0-5) 08/23/16 15:26 Urine Bacteria Occ (<OCC) H 08/23/16 15:26 Stool Leukocytes, Qual Negative (NEGATIVE) 08/30/16 Unknown C. difficile Ag & Toxin Negative (NEGATIVE) 08/30/16 Unknown Hep Bs Antigen Negative (NEGATIVE) 08/23/16 20:11 Hep Bs Antibody Positive (NEGATIVE) 08/23/16 20:11 Hep B Core IgM Ab Negative (NEGATIVE) 08/23/16 20:11 Hepatitis C Antibody Negative (NEGATIVE) 08/23/16 20:11 Blood Type O POSITIVE 08/23/16 13:25 Antibody Screen Negative 08/23/16 13:25 - Hospital Course Hospital Course: Admit date 08/23/16 DC date 09/05/16 Consults Agapito Zayas Discharge dx 1. Renal failure 2. HTN 3. CHF Stable upon dc Procedures right permacath left av snuffbox fistula right shiley No complications HPI: see h/p Labs: see lab data section Hospital course This is a 76 yo male with no reported past medical or sx hx presenting with 1) Dyspnea Admitted to ICU on 08/23 for SOB Currently resolved and improved after emergent HD Metabolic acidosis resolved Hemodynamically stable and transferred to regular floor pt now on regular floor with no complaints (2) Renal failure, acute BUN/Cr 49/3.7, improving>> 34/3.1>> 56/3.6 today>>> trending down Dr Blas consulted- patient scheduled for AV fistula and portacath placement Monday 08/28>>> pt now s/p left av fistula Dr. Altman (renal) following Procrit [id number] MWF Phoslo 667mg PO TID continue calcitriol .25 mcg daily (3) Urinary retention with incomplete bladder emptying Urologist Dr Zayas consulted- help appreciated Cox catheter in place PSA elevated 10.9 Pt should have cystoscopic evaluation when renal function maximally improved CT abdomen: Moderate to mildly severe bilateral hydronephrosis and hydroureter. The possibility of distal obstruction such as bladder outlet obstruction should be considered. Correlate clinically for possible prostate hypertrophy or prostate cancer. Pt will need to be discharged with cox (4) Hematuria Hematuria improving Likely chronic hydronephrosis 2/2 to echogenecity of b/l kidneys on US Dr. Zayas (urology) consulted Pt should have cystoscopic evaluation when renal function maximally improved (5) GI/DVT ppx -protonix daily -SCDs -renal diet On day of discharge, pt stable with no complaints. Will need echo outpatient. Discharge meds 1. Calcitriol 2. Phoslo Discharge instructions Pt is medically stable for discharge. Pt needs to follow up with Dr. Dumas- address is [address] [place] [address], [id number]. Number is [phone]. Pt also needs to follow up with Dr. Altman (nephrology) and Dr. Zayas (urology). pt needs to follow up for dialysis 3x per week. Pt needs to be discharged with cox/leg bag/ please provide extra leg bad. Dr. Zayas will remove cox in office. - Date & Time of H&P Date of H&P: 08/23/16 Time of H&P: 18:51 Discharge Exam - Head Exam Head Exam: NORMAL INSPECTION Discharge Plan - Discharge Medications Prescriptions: Calcitriol [Rocaltrol] 0.25 mcg PO DAILY #30 sgl Calcium Acetate [Phoslo] 667 mg PO TIDCC #90 tab - Follow Up Plan Condition: SERIOUS Disposition: HOME/ ROUTINE Instructions: Calcitriol (By mouth), Calcium Acetate (By mouth), Heart Failure (DC), Acute Kidney Injury (DC), Renal Failure Diet (DC), Dialysis Diet (DC) Referrals: Orville Altman MD [Staff Provider] - Jean Zayas Jr., MD [Staff Provider] - Sharon Dumas MD [Staff Provider] - <Michael Campbell - Last Filed: 10/13/16 17:04> Provider - Provider Date of Admission: 08/23/16 14:14 Attending physician: Bonifacio Garcia MD Hospital Course - Lab Results Lab Results: Micro Results 08/30/16 Unknown Stool Stool Culture - Final NO SALMONELLA, SHIGELLA OR CAMPYLOBACTER ISOLATED. 08/30/16 Unknown Stool Ova and Parasite Concentrate Exam - Final 08/27/16 12:37 Naris MRSA Culture - Final MRSA NOT DETECTED 08/23/16 15:18 Naris MRSA Culture (Admit) - Final MRSA NOT DETECTED Most Recent Lab Values WBC 9.0 K/uL (4.8-10.8) 09/05/16 08:14 RBC 3.33 Mil/uL (4.40-5.90) L 09/05/16 08:14 Hgb 10.5 g/dL (12.0-18.0) L 09/05/16 08:14 Hct 32.3 % (35.0-51.0) L 09/05/16 08:14 MCV 97.0 fL (80.0-94.0) H 09/05/16 08:14 MCH 31.4 pg (27.0-31.0) H 09/05/16 08:14 MCHC 32.4 g/dL (33.0-37.0) L 09/05/16 08:14 RDW 16.5 % (11.5-14.5) H 09/05/16 08:14 Plt Count 134 K/uL (130-400) 09/05/16 08:14 MPV 8.6 fL (7.2-11.7) 09/05/16 08:14 Neut % (Auto) 59.4 % (50.0-75.0) 09/05/16 08:14 Lymph % (Auto) 17.6 % (20.0-40.0) L 09/05/16 08:14 [place] % (Auto) 17.1 % (0.0-10.0) H 09/05/16 08:14 Eos % (Auto) 4.9 % (0.0-4.0) H 09/05/16 08:14 Baso % (Auto) 1.0 % (0.0-2.0) 09/05/16 08:14 Neut # 5.4 K/uL (1.8-7.0) 09/05/16 08:14 Lymph # 1.6 K/uL (1.0-4.3) 09/05/16 08:14 [place] # 1.5 K/uL (0.0-0.8) H 09/05/16 08:14 Eos # 0.4 K/uL (0.0-0.7) 09/05/16 08:14 Baso # 0.1 K/uL (0.0-0.2) 09/05/16 08:14 Neutrophils % (Manual) 55 % (50-75) 09/04/16 05:59 Band Neutrophils % 4 % (0-2) H 09/04/16 05:59 Lymphocytes % (Manual) 16 % (20-40) L 09/04/16 05:59 Monocytes % (Manual) 17 % (0-10) H 09/04/16 05:59 Eosinophils % (Manual) 5 % (0-4) H 09/04/16 05:59 Basophils % (Manual) 1 % (0-2) 09/04/16 05:59 Metamyelocytes % 3 % (0-0) H 09/03/16 07:45 Myelocytes % 2 % (0-0) H 09/04/16 05:59 Nucleated RBC % 1 % (0-0) H 09/03/16 07:45 Differential Comment 08/27/16 06:20 Toxic Granulation Present 09/04/16 05:59 Platelet Estimate Slightly decreased (NORMAL) L 09/04/16 05:59 Polychromasia Slight 09/03/16 07:45 Hypochromasia (manual) Slight 09/03/16 07:45 Poikilocytosis (manual Slight 08/24/16 06:03 Anisocytosis (manual) Slight 09/04/16 05:59 Microcytosis (manual) Slight 08/24/16 06:03 Macrocytosis (manual) Slight 08/24/16 06:03 Tear Drop Cells Slight 08/23/16 11:14 Ovalocytes Slight 09/02/16 08:32 [place] Cells Slight 08/24/16 06:03 PT 13.0 SECONDS (9.7-12.2) H 08/23/16 16:02 INR 1.1 08/23/16 16:02 APTT 34 SECONDS (21-34) 08/23/16 16:02 pO2 30 mm/Hg (30-55) 08/23/16 13:22 VBG pH 7.12 (7.32-7.43) L* 08/23/16 13:22 VBG pCO2 26 mmHg (40-60) L 08/23/16 13:22 VBG HCO3 8.1 mmol/L 08/23/16 13:22 VBG Total CO2 9.3 mmol/L (22-28) L 08/23/16 13:22 VBG O2 Sat (Calc) 60.0 % (40-65) 08/23/16 13:22 VBG Base Excess -19.4 mmol/L (0.0-2.0) L 08/23/16 13:22 VBG Potassium 4.3 mmol/L (3.6-5.2) 08/23/16 13:22 Sodium 141.0 mmol/l (132-148) 08/23/16 13:22 Chloride 115.0 mmol/L (98-107) H 08/23/16 13:22 Glucose 81 mg/dl (75-110) 08/23/16 13:22 Lactate 0.8 mmol/L (0.7-2.1) 08/23/16 13:22 Crit Value Called To 08/23/16 13:22 Crit Value Called By Chin conn,whittling room operator 08/23/16 13:22 Crit Value Read Back Y 08/23/16 13:22 Blood Gas Notified Time 1330 08/23/16 13:22 Sodium 137 mmol/L (132-148) 09/05/16 08:14 Potassium 4.2 mmol/L (3.6-5.2) 09/05/16 08:14 Chloride 99 mmol/L (98-107) 09/05/16 08:14 Carbon Dioxide 27 mmol/L (22-30) 09/05/16 08:14 Anion Gap 16 (10-20) 09/05/16 08:14 BUN 42 mg/dL (9-20) H 09/05/16 08:14 Creatinine 2.9 MG/DL (0.8-1.5) H 09/05/16 08:14 Est GFR ( Amer) 26 09/05/16 08:14 Est GFR (Non-Af Amer) 21 09/05/16 08:14 Random Glucose 82 mg/dL (75-110) 09/05/16 08:14 Calcium 8.0 mg/dl (8.6-10.4) L 09/05/16 08:14 Phosphorus 3.7 mg/dL (2.5-4.5) 09/05/16 08:14 Magnesium 2.0 mg/dL (1.6-2.3) 09/05/16 08:14 % Saturation 23 (20-55) 08/27/16 06:18 Ferritin 178.0 ng/mL 08/24/16 11:51 Total Bilirubin 0.5 mg/dL (0.2-1.3) 09/05/16 08:14 AST 17 U/L (17-59) 09/05/16 08:14 ALT 13 U/L (21-72) L 09/05/16 08:14 Alkaline Phosphatase 72 U/L (38-126) 09/05/16 08:14 Total Creatine Kinase 140 U/L (55-170) 08/23/16 11:14 CK-MB (Mass) 11.7 ng/mL (0.0-3.38) H 08/23/16 11:14 Troponin I, Quant 0.0730 ng/mL (0.00-0.120) 08/23/16 11:14 NT-Pro-B Natriuret Pep 45469 pg/mL (0-900) H 08/23/16 11:14 Total Protein 6.9 g/dL (6.3-8.3) 09/05/16 08:14 Albumin 3.5 g/dL (3.5-5.0) 09/05/16 08:14 Globulin 3.4 gm/dL (2.2-3.9) 09/05/16 08:14 Albumin/Globulin Ratio 1.0 (1.0-2.1) 09/05/16 08:14 Prostate Specific Ag 10.9 ng/mL (0.00-4.0) H 08/25/16 06:02 PTH Intact Whole Molec 298 pg/mL (14-64) H 08/24/16 11:51 Venous Blood Potassium 4.3 mmol/L (3.6-5.2) 08/23/16 13:22 Urine Color Straw (YELLOW) 08/23/16 15: Urine Clarity Clear (Clear) 08/23/16 15: Urine pH 5.0 (5.0-8.0) 08/23/16 15:26 Ur Specific [place] 1.008 (1.003-1.030) 08/23/16 15:26 Urine Protein Negative mg/dL (NEGATIVE) 08/23/16 15: Urine Glucose (UA) 1+ mg/dL (Normal) H 08/23/16 15:26 Urine Ketones Negative mg/dL (NEGATIVE) 08/23/16 15:26 Urine Blood 1+ (NEGATIVE) H 08/23/16 15:26 Urine Nitrate Negative (NEGATIVE) 08/23/16 15: Urine Bilirubin Negative (NEGATIVE) 08/23/16 15:26 Urine Urobilinogen Normal mg/dL (0.2-1.0) 08/23/16 15:26 Ur Leukocyte Esterase Neg [place]/uL (Negative) 08/23/16 15:26 Urine WBC (Auto) 1 /hpf (0-5) 08/23/16 15:26 Urine RBC (Auto) 6 /hpf (0-3) H 08/23/16 15:26 Ur Squamous Epith Cells < 1 /hpf (0-5) 08/23/16 15:26 Urine Bacteria Occ (<OCC) H 08/23/16 15:26 Stool Leukocytes, Qual Negative (NEGATIVE) 08/30/16 Unknown C. difficile Ag & Toxin Negative (NEGATIVE) 08/30/16 Unknown Hep Bs Antigen Negative (NEGATIVE) 08/23/16 20:11 Hep Bs Antibody Positive (NEGATIVE) 08/23/16 20:11 Hep B Core IgM Ab Negative (NEGATIVE) 08/23/16 20:11 Hepatitis C Antibody Negative (NEGATIVE) 08/23/16 20:11 Blood Type O POSITIVE 08/23/16 13:25 Antibody Screen Negative 08/23/16 13:25 Attending/Attestation - Attestation I have personally seen and examined this patient.: Yes I have fully participated in the care of the patient.: Yes I have reviewed all pertinent clinical information, including history, physical exam and plan: Yes Notes (Text): This is a 76 yo male with no reported past medical or sx hx presenting with 1) Dyspnea Admitted to ICU on 08/23 for SOB Currently resolved and improved after emergent HD Metabolic acidosis resolved Hemodynamically stable and transferred to regular floor pt now on regular floor with no complaints (2) Renal failure, acute BUN/Cr 49/3.7, improving>> 34/3.1>> 56/3.6 today>>> trending down Dr Blas consulted- patient scheduled for AV fistula and portacath placement Monday 08/28>>> pt now s/p left av fistula Dr. Altman (renal) following Procrit [id number] MWF Phoslo 667mg PO TID continue calcitriol .25 mcg daily (3) Urinary retention with incomplete bladder emptying Urologist Dr Zayas consulted- help appreciated Cox catheter in place PSA elevated 10.9 Pt should have cystoscopic evaluation when renal function maximally improved CT abdomen: Moderate to mildly severe bilateral hydronephrosis and hydroureter. The possibility of distal obstruction such as bladder outlet obstruction should be considered. Correlate clinically for possible prostate hypertrophy or prostate cancer. Pt will need to be discharged with cox (4) Hematuria Hematuria improving Likely chronic hydronephrosis 2/2 to echogenecity of b/l kidneys on US Dr. Zayas (urology) consulted Pt should have cystoscopic evaluation when renal function maximally improved
--- NOTE | 2016-09-05 16:55 | PCM.HF ---
Heart Failure Core Measure TRUNG Inhibitor Prescribed: No Contraindication/Reason for not providing: ESRD Beta-Jaqueline Prescribed: None Contraindication/Reason for not providing: low BP Angiotensin II Receptor Jaqueline Prescribed: No Contraindication/Reason for not providing: esrd AnticoagulationTherapy for Atrial Fibrillation/Atrialflutter: No Contraindication/Reason for not providing: no afib Aldosterone Antagonist Prescribed: No Contraindication/Reason for not providing: renal dysfunction Hydralazine Nitrate Prescribed: No Contraindication/Reason for not providing: low BP Implantable Cardioverter Defibrillator Therapy: No Contraindication/Reason for not providing: to be evaluated in the office Cardiac Resynchronization Therapy Prescribed: No Contraindication/Reason for not providing: not indicated - Follow up Will be discharged to: Home Follow Up Date (must be within 7 days from discharge): 09/12/16 Follow Up Time: 09:00
--- NOTE | 2016-09-30 10:49 | CARD ---
APPROVED REPORT EKG Measurement Heart [id number] <Conclusion> Normal sinus rhythm Left ventricular hypertrophy with repolarization abnormality Possible Inferior infarct, age undetermined Abnormal ECG
--- NOTE | 2016-10-03 08:04 | CARD ---
APPROVED REPORT EKG Measurement Heart [id number] <Conclusion> Normal sinus rhythm Inferior infarct, age undetermined Abnormal ECG
== END 2016-09-05 19:15 | disposition home health service (06) | DRG 291 ==
LOC: C.ER 10:52 → EDBD 10:52 → C.9I 14:14 → C.3T 08-27 11:44
PROVIDERS: ADMIT Internal Medicine; ATTEND Internal Medicine
PROC: 30233N1 Transfusion of Nonautologous Red Blood Cells into Peripheral Vein, Percutaneous Approach (ICD-10-PCS; principal; 2016-08-23)
PROC: 05HM33Z Insertion of Infusion Device into Right Internal Jugular Vein, Percutaneous Approach (ICD-10-PCS; 2016-08-23)
PROC: 5A1D60Z (ICD-10-PCS; 2016-08-23)
PROC: 02HV33Z Insertion of Infusion Device into Superior Vena Cava, Percutaneous Approach (ICD-10-PCS; 2016-08-28)
DX: I13.2 Hypertensive heart and chronic kidney disease with heart failure and with stage 5 chronic kidney disease, or end stage renal disease (principal); N18.6 End stage renal disease; N17.9 Acute kidney failure, unspecified; E87.2 Acidosis; N13.30 Unspecified hydronephrosis; N13.39 Other hydronephrosis; D64.89 Other specified anemias; I50.9 Heart failure, unspecified; Z86.73 Personal history of transient ischemic attack (TIA), and cerebral infarction without residual deficits; Z87.891 Personal history of nicotine dependence; R31.9 Hematuria, unspecified; Z99.2 Dependence on renal dialysis; N36.8 Other specified disorders of urethra

== ENCOUNTER 2016-11-23 08:19 | Day surgery (SDC) | payer MEDICARE, OTHER ==
[2016-11-21 13:59] VITALS: BMI 23.0
[2016-11-23] MEDS ORDERED: ceFAZolin IV 1 gm in Dextrose 0 GM/0 ML BAG IVPB ONE (08:35)
[2016-11-23] MEDS ORDERED: HEPARIN-NS 5,000 UNITS/500 ML 5,000 UNIT/500 ML BAG IV ONE (08:36)
[2016-11-23 09:33] LABS: POTASSIUM 4.5 mmol/L (3.6-5.2)
[2016-11-23] MEDS ORDERED: ceFAZolin IV 2 gm in Dextrose 1 GM/50 ML BAG IVPB ONE (09:56)
[2016-11-23] MEDS ORDERED: Etomidate 20 mg/10ml Inj IV ONE (10:28)
[2016-11-23] MEDS ORDERED: Sodium Chloride 0.9% 500 ML IV ONE (10:30)
--- NOTE | 2016-11-23 12:15 | PCM.SURG1 ---
Surgeon's Initial Post Op Note - Surgeon's Notes Surgeon: Dr. Blas Aircraft Skin Burnisher: Dr. Gallegos PGY-3 Type of Anesthesia: General LMA Pre-Operative Diagnosis: End stage renal disease, Left AV fistula malfuntioning Operative Findings: see operative report Post-Operative Diagnosis: End stage renal disease, Left AV fistula malfuntioning Operation Performed: Left radiocephalic AV fistula formation Specimen/Specimens Removed: none Estimated Blood Loss: EBL {In ML}: 20 Blood Products Given: N/A Drains Used: No Drains Post-Op Condition: Good Date of Surgery/Procedure: 11/23/16 Time of Surgery/Procedure: 12:16
[2016-11-23] MEDS: HYDROmorphone 0.5 mg/0.5 ml ISec IVP PRN ×2 (12:28→12:57)
[2016-11-23 14:42] VITALS: O2SAT 95
[2016-11-23 16:08] VITALS: BP 126/75; PULSE 70; RESP 16; TEMP 97.5
--- NOTE | 2016-11-23 22:17 | OP ---
PROCEDURE DATE: 11/23/2016 PREOPERATIVE DIAGNOSIS: Renal failure. POSTOPERATIVE DIAGNOSIS: Renal failure. PROCEDURE CARRIED OUT: Juan fistula, left wrist. SURGEON: Dr. Wan Obrien METAL MACHINE OPERATOR: Dr. Gallegos. ANESTHESIOLOGIST: Mr. Ayala, INDICATIONS: The patient is an elderly man, recently started on dialysis, previously had a snuffbox fistula, which was used a few times and then subsequently occluded. OPERATIVE FINDINGS: The cephalic vein was dissected away from the surrounding tissues and the radial artery was dissected away from the surrounding tissues using loupe magnification and heparin anticoagulation. The anastomosis was carried out using 6-0 Prolene sutures. The wound was then closed. The skin was closed with subcuticular closer and fine nylon suture. Blood loss during the procedure was less than 20 mL. Operation carried out was Juan fistula, left wrist. Excellent vein, excellent vessel. Kirill Blas Jr., MD cc: Orville Altman MD
== END 2016-11-23 18:51 | disposition home or self-care (01) ==
LOC: C.SDS 08:19
PROVIDERS: ATTEND Surgery Vascular Surgery
DX: T82.868A Thrombosis due to vascular prosthetic devices, implants and grafts, initial encounter (principal); N18.6 End stage renal disease; I12.0 Hypertensive chronic kidney disease with stage 5 chronic kidney disease or end stage renal disease; Z99.2 Dependence on renal dialysis
CPT/HCPCS: 36415; 36818; 80048; J0690; J1170; J1644; J2405; J3010; J7040

== ENCOUNTER 2017-01-29 09:07 | Emergency (ER) | payer OTHER ==
[2017-01-29 09:07] VITALS: BMI 23.0
[2017-01-29 09:17] VITALS: O2SAT 95
--- NOTE | 2017-01-29 09:44 | C.PDOC ---
History Of Present Illness Patient is 76 y/o male, receives dialysis Sunday, Sunday, Sunday, and had a catheter placed in August for urinary retention thought to be secondary to enlarged prostate. Presents to ED with complaint of suprapubic pain and reports he has been unable to follow up with his urologist, Dr. Zayas. Patient notes symptoms began two days ago on Sunday when he had no output from catheter, despite having the urge to urinate. He reports he self removed the catheter and has unable to void for two days so then he presented to ED this morning. Patient denies fever, chills, chest pain, nausea/vomiting, or flank pain. PMD: Dr. Stevenson Time Seen by Provider: 01/29/17 09:25 Chief Complaint (Nursing): Male Genitourinary History Per: Patient History/Exam Limitations: no limitations Onset/Duration Of Symptoms: Days (2 days ) Current Symptoms Are (Timing): Still Present Quality Of Discomfort: "Pain" Associated Symptoms: denies: Fever, Chills, Nausea, Vomiting Alleviating Factors: None Recent travel outside of the [place]: No Additional History Per: Prior Records Past Medical History Reviewed: Historical Data, Nursing Documentation, Vital Signs Vital Signs: Last Vital Signs Temp 98.7 F 01/29/17 11:18 Pulse 99 H 01/29/17 11:18 Resp 16 01/29/17 11:18 BP 118/65 01/29/17 11:18 Pulse Ox 95 01/29/17 11:18 - Medical History PMH: Benign Prostatic Hyperplasia, CHF, HTN, Peripheral Edema (no longer), Chronic Kidney Disease, TIA - [facility] Procedures INSERT INFUSION DEV IN R INT JUGULAR VEIN, PERC (08/23/16) INSERTION OF INFUSION DEV INTO SUP VENA CAVA, PERC APPROACH (08/23/16) PERFORMANCE OF URINARY FILTRATION, MULTIPLE (08/23/16) TRANSFUSE NONAUT RED BLOOD CELLS IN PERIPH VEIN, PERC (08/23/16) Family History: States: Unknown Family Hx - Social History Hx Alcohol Use: No Hx Substance Use: No - Immunization History Hx Tetanus Toxoid Vaccination: No Hx Influenza Vaccination: Yes Review Of Systems Constitutional: Negative for: Fever, Chills Cardiovascular: Negative for: Chest Pain, Palpitations, Orthopnea, Edema, Light Headedness Respiratory: Negative for: Cough, Shortness of Breath, SOB with Excertion, Wheezing Gastrointestinal: Positive for: Abdominal Pain (suprapubic pain ). Negative for : Nausea, Vomiting, Diarrhea, Constipation Genitourinary: Positive for: Other (inability to void ) Skin: Negative for: Rash Neurological: Negative for: Weakness, Numbness Physical Exam - Physical Exam Appears: Well, Non-toxic, No Acute Distress Skin: Warm, Dry Head: Atraumatic Eye(s): bilateral: Normal Inspection Oral Mucosa: Moist Neck: Supple Chest: Symmetrical, No Deformity Cardiovascular: Rhythm Regular, No Murmur Respiratory: No Rales, No Rhonchi, No Wheezing, Other (Clear to auscultation bilaterally ) Gastrointestinal/Abdominal: Soft, No Tenderness, No Distention, No Guarding, No Rebound Back: Normal Inspection, No CVA Tenderness Extremity: Normal ROM Neurological/Psych: Oriented x3 ED Course And Treatment - Laboratory Results Result Diagrams: 01/29/17 10:15 01/29/17 10:21 O2 Sat by Pulse Oximetry: 95 (RA) Progress Note: Labs and cox catheter were ordered. Medical Decision Making Medical Decision Making: Bladder scan performed at bedside by RAW SILK GRADER showing greater than 900 cc of urine. Cox catheter was ordered. 9:57AM Cox put >700cc of cloudy foul smelling urine. UCx and Ua sent. P:Labs. Patient reports that he feels better immediately after cxo placement 10:[address] Stevenson. Aware of presenting tachycardia and elevated WBC. As patient is tolerating po with soft NT/ND abdomen with no complaint of pain and is afebrile, he does not think he needs to be admitted. Dr. Stevenson requesting dc with keflex 500mg po bid x 10 days with follow-up in his office. Patient to go immediately to his scheduled dialysis. Patient was given detailed return instructions for any worsening symptoms. Lulú was also educated on the need to follow-up with a urologist and keep his cox in place till his urologist has evaluated further. Requesting referral to new urologist. Patient reports understanding and reports that he will return with any worsening symptoms. Disposition - Disposition Referrals: Sulaiman Tomlinson MD [Staff Provider] - Rosenda Choi MD [Medical Doctor] - Disposition: HOME/ ROUTINE Disposition Time: 10:54 Condition: GOOD Additional Instructions: Follow-up with Dr. Stevenson within 2 days. Take full course of antibiotics. Go directly to dialysis. Follow-up with urologist within 1 week. Return to ED immediately with any worsening symptoms- fever, vomiting, nausea, pain. Prescriptions: Cephalexin [Keflex] 500 mg PO BID #20 capsule Forms: IWT (Somali) - Clinical Impression Clinical Impression: Urinary retention with incomplete bladder emptying, UTI (urinary tract infection) - Scribe Statement The provider has reviewed the documentation as recorded by the Scribe Teena Borrero All medical record entries made by the Margaretibbobby were at my direction and personally dictated by me. I have reviewed the chart and agree that the record accurately reflects my personal performance of the history, physical exam, medical decision making, and the department course for this patient. I have also personally directed, reviewed, and agree with the discharge instructions and disposition.
[2017-01-29 10:13] LABS: RBC URINE 91 /hpf (0-3); URINE BACTERIA RARE (<OCC); URINE BILIRUBIN NEGATIVE (NEGATIVE); URINE BLOOD 2+ (NEGATIVE); URINE COLOR Yellow (YELLOW); URINE GLUCOSE (UA) NORMAL (Normal); URINE KETONE NEGATIVE (NEGATIVE); URINE LEUKOCYTE ESTERASE 3+ Leu/uL (Negative); URINE PROTEIN 2+ mg/dL (NEGATIVE); URINE UROBILINOGEN NORMAL mg/dL (0.2-1.0); WBC CLUMPS FEW /hpf; WBC URINE 1615 /hpf (0-5)
[2017-01-29 10:25] LABS: BASO % 0.3 % (0.0-2.0); LYMPH # 0.3 K/uL (1.0-4.3); LYMPH % 1.7 % (20.0-40.0); MEAN CORPUSCULAR HEMOGLOBIN 30.3 pg (27.0-31.0); MEAN CORPUSCULAR HGB CONC 33.5 g/dL (33.0-37.0); MEAN PLATELET VOLUME 7.9 fL (7.2-11.7); MONO # 0.7 K/uL (0.0-0.8); MONO % 4.7 % (0.0-10.0); PLATELET COUNT 193 K/uL (130-400); RED CELL DISTRIBUTION WIDTH 16.1 % (11.5-14.5)
[2017-01-29 10:26] LABS: MEAN CELL VOLUME 90.5 fL (80.0-94.0)
[2017-01-29 10:37] LABS: POTASSIUM 4.3 mmol/L (3.6-5.2)
[2017-01-29 10:39] LABS: BILIRUBIN,TOTAL 0.8 mg/dL (0.2-1.3)
[2017-01-29 10:40] LABS: ALB/GLOB RATIO 1.1 (1.0-2.1); TOTAL PROTEIN 8.2 g/dL (6.3-8.3)
[2017-01-29 10:41] LABS: CALCIUM 9.6 mg/dl (8.6-10.4)
[2017-01-29 11:19] VITALS: BP 118/65; PULSE 99; RESP 16; TEMP 98.7
[2017-01-29 11:19] LABS: METAMYELOCYTE 1 % (0-0); NEUTROPHIL 84 % (50-75); TOTAL CELLS COUNTED 100
== END 2017-01-29 11:21 | disposition home or self-care (01) ==
LOC: C.ER 09:07
DX: R33.9 Retention of urine, unspecified (principal); N39.0 Urinary tract infection, site not specified

== ENCOUNTER 2017-04-18 07:29 | Emergency (ER) | payer MEDICARE, OTHER ==
[2017-04-18 07:30] VITALS: BMI 23.0
[2017-04-18 07:41] VITALS: RESP 20
[2017-04-18 08:42] LABS: URINE AMORPHOUS SEDIMENT MODERATE /ul (<OCC); URINE BACTERIA FEW (<OCC); URINE BILIRUBIN NEGATIVE (NEGATIVE); URINE BLOOD 1+ (NEGATIVE); URINE CLARITY Turbid (Clear); URINE COLOR Amber (YELLOW); URINE GLUCOSE (UA) NORMAL (Normal); URINE LEUKOCYTE ESTERASE 2+ Leu/uL (Negative); URINE NITRATE NEGATIVE (NEGATIVE); URINE PROTEIN 3+ mg/dL (NEGATIVE); URINE UROBILINOGEN NORMAL mg/dL (0.2-1.0); WBC CLUMPS FEW /hpf
--- NOTE | 2017-04-18 08:49 | C.PDOC ---
History Of Present Illness Patient is a 76 y/o male with c/o urinary retention since last night. Patient called Ra this am, was told to come to Ed. Clark was removed yesterday by Bushra. Patient currently c/o low abdominal pressure and denies fever or any other complaints at this time. Time Seen by Provider: 04/18/17 07:43 Chief Complaint (Nursing): Male Genitourinary History Per: Patient History/Exam Limitations: no limitations Onset/Duration Of Symptoms: Days Current Symptoms Are (Timing): Still Present Associated Symptoms: Urinary Symptoms Past Medical History Reviewed: Historical Data, Nursing Documentation, Vital Signs Vital Signs: Last Vital Signs Temp 97.5 F L 04/18/17 09:01 Pulse 75 04/18/17 09:01 Resp 20 04/18/17 09:01 BP 111/63 04/18/17 09:01 Pulse Ox 97 04/18/17 09:09 - Medical History PMH: Benign Prostatic Hyperplasia, CHF, HTN, Peripheral Edema (no longer), Chronic Kidney Disease, TIA Surgical History: No Surg Hx - [facility] Procedures INSERT INFUSION DEV IN R INT JUGULAR VEIN, PERC (08/23/16) INSERTION OF INFUSION DEV INTO SUP VENA CAVA, PERC APPROACH (08/23/16) PERFORMANCE OF URINARY FILTRATION, MULTIPLE (08/23/16) TRANSFUSE NONAUT RED BLOOD CELLS IN PERIPH VEIN, PERC (08/23/16) Family History: States: No Known Family Hx - Social History Hx Alcohol Use: No Hx Substance Use: No - Immunization History Hx Tetanus Toxoid Vaccination: No Hx Influenza Vaccination: Yes Review Of Systems Constitutional: Negative for: Fever, Chills Gastrointestinal: Negative for: Nausea, Vomiting, Abdominal Pain Genitourinary: Positive for: Other (Urinary retention). Negative for: Dysuria, Hematuria Skin: Negative for: Rash Physical Exam - Physical Exam Appears: Non-toxic, No Acute Distress Skin: Normal Color, Warm, Dry, No Rash Head: Atraumatic, Normacephalic Oral Mucosa: Moist Neck: Supple Cardiovascular: Rhythm Regular Respiratory: Normal Breath Sounds, No Accessory Muscle Use, No Rales, No Rhonchi , No Wheezing Gastrointestinal/Abdominal: Soft, No Tenderness, Distention (Bladder), No Guarding, No Rebound Back: No CVA Tenderness Neurological/Psych: Oriented x3 ED Course And Treatment O2 Sat by Pulse Oximetry: 97 (RA) Pulse Ox Interpretation: Normal Progress Note: Clark inserted; 450 ml of cloudy urine, improved. UA pos for UTI , spoke with Bushra, d/selene home on antibiotics, f/u with Bushra within 1-2 days Disposition - Disposition Referrals: Sulaiman Tomlinson MD [Staff Provider] - Disposition: HOME/ ROUTINE Disposition Time: 08:50 Condition: STABLE Additional Instructions: Follow up with PMD and Urologist within 1-2d days. Return to Ed if feel worse. Prescriptions: Cefpodoxime [Vantin] 100 mg PO Q12 #20 tab Instructions: Urinary Retention in Men (ED), Urinary Tract Infection in Men (DC ) Forms: [employer] (Afghan) - Clinical Impression Clinical Impression: UTI (urinary tract infection), Urinary retention - PA / VALVE MACHINE OPERATOR / Resident Statement MD/DO has reviewed & agrees with the documentation as recorded. - Scribe Statement The provider has reviewed the documentation as recorded by the Bob Samuels All medical record entries made by the Bob were at my direction and personally dictated by me. I have reviewed the chart and agree that the record accurately reflects my personal performance of the history, physical exam, medical decision making, and the department course for this patient. I have also personally directed, reviewed, and agree with the discharge instructions and disposition.
[2017-04-18 09:03] VITALS: BP 111/63; PULSE 75; TEMP 97.5
[2017-04-18 09:09] VITALS: O2SAT 97
== END 2017-04-18 09:19 | disposition home or self-care (01) ==
LOC: C.ER 07:29
DX: N39.0 Urinary tract infection, site not specified (principal); N40.1 Benign prostatic hyperplasia with lower urinary tract symptoms; R33.8 Other retention of urine; I50.9 Heart failure, unspecified; I10 Essential (primary) hypertension

== ENCOUNTER 2017-05-09 08:04 | Emergency (ER) | payer MEDICARE, OTHER ==
[2017-05-09 08:04] VITALS: BMI 23.0
[2017-05-09 08:15] VITALS: TEMP 97.5
--- NOTE | 2017-05-09 08:32 | C.PDOC ---
History Of Present Illness 77 y/o male presents to ED with complaints of urinary retention with associated abdominal pain. Patient states he had Cox catheter removed yesterday and has not been able to urinate since. Patient denies fever, chills, nausea, vomiting, hematuria or any other complaints at this time. Time Seen by Provider: 05/09/17 08:13 Chief Complaint (Nursing): Male Genitourinary History Per: Patient History/Exam Limitations: no limitations Onset/Duration Of Symptoms: Days Current Symptoms Are (Timing): Still Present Associated Symptoms: Urinary Symptoms Past Medical History Reviewed: Historical Data, Nursing Documentation, Vital Signs Vital Signs: Last Vital Signs Temp 97.5 F L 05/09/17 09:39 Pulse 70 05/09/17 09:39 Resp 20 05/09/17 09:39 BP 121/65 05/09/17 09:39 Pulse Ox 96 05/09/17 09:39 - Medical History PMH: Benign Prostatic Hyperplasia, CHF, HTN (NO MEDS), Peripheral Edema (no longer), Chronic Kidney Disease, TIA Surgical History: No Surg Hx - [facility] Procedures INSERT INFUSION DEV IN R INT JUGULAR VEIN, PERC (08/23/16) INSERTION OF INFUSION DEV INTO SUP VENA CAVA, PERC APPROACH (08/23/16) PERFORMANCE OF URINARY FILTRATION, MULTIPLE (08/23/16) TRANSFUSE NONAUT RED BLOOD CELLS IN PERIPH VEIN, PERC (08/23/16) Family History: States: No Known Family Hx - Social History Hx Alcohol Use: No Hx Substance Use: No - Immunization History Hx Tetanus Toxoid Vaccination: No Hx Influenza Vaccination: Yes Hx Pneumococcal Vaccination: No Review Of Systems Constitutional: Negative for: Fever, Chills Gastrointestinal: Positive for: Abdominal Pain Genitourinary: Positive for: Other (urinary retention) Musculoskeletal: Negative for: Back Pain Skin: Negative for: Rash Physical Exam - Physical Exam Appears: Non-toxic, No Acute Distress Skin: Warm, Dry, No Rash Head: Atraumatic, Normacephalic Oral Mucosa: Moist Neck: Normal ROM, Supple Cardiovascular: Rhythm Regular Respiratory: Normal Breath Sounds, No Rales, No Rhonchi, No Wheezing Gastrointestinal/Abdominal: Soft, Tenderness (Suprapubic), No Guarding, No Rebound Back: No CVA Tenderness Extremity: Normal ROM, Capillary Refill (<2 seconds), Other (fistula left wrist) Neurological/Psych: Oriented x3 ED Course And Treatment O2 Sat by Pulse Oximetry: 98 (RA) Pulse Ox Interpretation: Normal Progress Note: cox inserted without difficulty. draining gurvinder urine Reassessment Condition: Improved - Physician Consult Information Physician Contacted: Sulaiman Tomlinson Outcome Of Conversation: follow up as outpatient Medical Decision Making Medical Decision Making: Plan: Cox will be placed in Disposition Discussed With Dr.: Sulaiman Tomlinson Doctor Will See Patient In The: Office Counseled Patient/Family Regarding: Diagnosis, Need For Followup - Disposition Referrals: Sulaiman Tomlinson MD [Staff Provider] - Disposition: HOME/ ROUTINE Disposition Time: 09:15 Condition: STABLE Additional Instructions: Follow up with Dr Tomlinson for further evaluation Follow up with dialysis for scheduled appointment Instructions: Urinary Retention in Men (ED) Forms: [employer] (Fijian) - POA Present On Arrival: None - Clinical Impression Clinical Impression: Bladder retention of urine, ESRD (end stage renal disease) - PA / PICKER AND PACKER / Resident Statement MD/DO has reviewed & agrees with the documentation as recorded. - Scribe Statement The provider has reviewed the documentation as recorded by the Margaretibbobby Samuels All medical record entries made by the Bob were at my direction and personally dictated by me. I have reviewed the chart and agree that the record accurately reflects my personal performance of the history, physical exam, medical decision making, and the department course for this patient. I have also personally directed, reviewed, and agree with the discharge instructions and disposition.
[2017-05-09 09:40] VITALS: BP 121/65; PULSE 70; RESP 20
[2017-05-09 14:42] VITALS: O2SAT 98
== END 2017-05-09 09:59 | disposition home or self-care (01) ==
LOC: C.ER 08:04
DX: N40.1 Benign prostatic hyperplasia with lower urinary tract symptoms (principal); R33.8 Other retention of urine; I13.2 Hypertensive heart and chronic kidney disease with heart failure and with stage 5 chronic kidney disease, or end stage renal disease; N18.6 End stage renal disease; I50.9 Heart failure, unspecified

== ENCOUNTER 2017-08-19 06:46 | Emergency (ER) | payer MEDICARE ==
[2017-08-19 06:47] VITALS: BMI 23.0
[2017-08-19] MEDS ORDERED: MethylPREDNISolone 40 mg Vial IVP STA (07:14)
[2017-08-19 07:53] LABS: HEMOGLOBIN 11.8 g/dL (12.0-18.0); MEAN CELL VOLUME 87.1 fL (80.0-94.0); MEAN CORPUSCULAR HEMOGLOBIN 29.2 pg (27.0-31.0); MEAN CORPUSCULAR HGB CONC 33.5 g/dL (33.0-37.0); MEAN PLATELET VOLUME 7.4 fL (7.2-11.7); RBC 4.06 Mil/uL (4.40-5.90); RED CELL DISTRIBUTION WIDTH 16.3 % (11.5-14.5); WHITE BLOOD COUNT 11.7 K/uL (4.8-10.8)
--- NOTE | 2017-08-19 08:10 | C.PDOC ---
History Of Present Illness 77 year old male, with past medical history of ESRD on hemodialysis (Mon, Wed, Fri) presents to ED for evaluation of neck pain for the last 4 days. Patient describes pain as stiff and radiates down to his shoulders and back. Notes that pain is worse with movement. Notes using heating pad to area with intermittent relief. He reports tingling sensation to both arms occasionally. Denies taking any oral pain medications. Otherwise, denies injury, fever, chills, headache, chest pain, or shortness of breath. Time Seen by Provider: 08/19/17 07:06 Chief Complaint (Nursing): Back Pain History Per: Patient History/Exam Limitations: no limitations Onset/Duration Of Symptoms: Days (4) Current Symptoms Are (Timing): Still Present Quality Of Discomfort: "Pain" Previous Symptoms: Neck Pain. denies: Prior Injury Associated Symptoms: None. denies: New Weakness, New Numbness Exacerbating Factor(s): Movement Recent travel outside of the [place]: No Additional History Per: Patient Past Medical History Reviewed: Historical Data, Nursing Documentation, Vital Signs Vital Signs: Last Vital Signs Temp 99.0 F 08/19/17 09:31 Pulse 74 08/19/17 09:31 Resp 18 08/19/17 09:31 BP 132/65 08/19/17 09:31 Pulse Ox 96 08/19/17 09:31 - Medical History PMH: Benign Prostatic Hyperplasia, CHF, HTN (NO MEDS), Peripheral Edema (no longer), Chronic Kidney Disease, TIA - [facility] Procedures INSERT INFUSION DEV IN R INT JUGULAR VEIN, PERC (08/23/16) INSERTION OF INFUSION DEV INTO SUP VENA CAVA, PERC APPROACH (08/23/16) PERFORMANCE OF URINARY FILTRATION, MULTIPLE (08/23/16) TRANSFUSE NONAUT RED BLOOD CELLS IN PERIPH VEIN, PERC (08/23/16) Family History: States: Unknown Family Hx - Social History Hx Alcohol Use: No Hx Substance Use: No - Immunization History Hx Tetanus Toxoid Vaccination: No Hx Influenza Vaccination: Yes Hx Pneumococcal Vaccination: No Review Of Systems Except As Marked, All Systems Reviewed And Found Negative. Constitutional: Negative for: Fever, Chills Cardiovascular: Negative for: Chest Pain, Palpitations Respiratory: Negative for: Shortness of Breath Musculoskeletal: Positive for: Neck Pain, Shoulder Pain, Back Pain Neurological: Positive for: Other (tingling to arms). Negative for: Weakness, Numbness, Headache, Dizziness Physical Exam - Physical Exam Appears: Non-toxic, No Acute Distress Skin: Normal Color, Warm, Dry Head: Atraumatic, Normacephalic Eye(s): bilateral: Normal Inspection Oral Mucosa: Moist Neck: Decreased ROM, No Midline Cervical Tenderness, Paracervical Tenderness, Other (trapezius muscle tenderness) Cardiovascular: Rhythm Regular Respiratory: Normal Breath Sounds, No Rales, No Rhonchi, No Wheezing Gastrointestinal/Abdominal: Soft, No Tenderness Back: No Vertebral Tenderness, Paraspinal Tenderness (upper back tenderness) Extremity: Normal ROM (FROM of shoulders), No Tenderness, Capillary Refill ( less than 2 seconds), No Deformity, Other (thrill to left AV fistula) Pulses: Left Radial: Normal, Right Radial: Normal Neurological/Psych: Oriented x3, Normal Speech, Normal Sensation ED Course And Treatment - Laboratory Results Result Diagrams: 08/19/17 07:35 08/19/17 07:35 O2 Sat by Pulse Oximetry: 97 (RA) Pulse Ox Interpretation: Normal - Other Rad c-spine X-Ray: Viewed By Me, Read By Radiologist Interpretation: Accession No. : [id number]. Patient Name / ID : BONNIE DUMONT / [id number]. Exam Date : 08/19/2017 08:30:19 ( Approved ). Study Comment : Sex / Age : M / 77Y. Creator : William Lee MD. Dictator : Secy : Food Safety Scientist : William Lee MD. Approver2 : Report Date : 08/19/2017 11:30:35. My Comment : . PROCEDURE: Cervical spine dated in 08/19/2017. AP, lateral, swimmer's and open-mouth views of the cervical spine performed. HISTORY: Atraumatic neck pain. COMPARISON: No prior study available comparison. . FINDINGS: BONES: Note that the inferior aspect of the C6, C6-C7 disc space and pole of the C7 and T1 vertebral body segments not visualized on the lateral projection due to overlying shoulder artifact. The segments are only partially visualized on swimmer's view. No evidence of acute compression compression or displaced fractures seen within limitation of the study. Vertebral bodies exhibit normal stature. Slight posterior subluxation of C3 over C4 and minimal anterior subluxation C5 over C6 felt to be degenerative in origin. . Vertebral bodies otherwise normally aligned. DISC SPACES: Multilevel degenerative spondylosis. Changes include varying degrees of disc space narrowing, endplate eburnation as well as small anterior osteophyte formation. Changes most notably affect the C3-C4, C5-C6 and to a lesser degree C4-C5 levels. . The uncovertebral facet joints also hypertrophic throughout. SOFT TISSUES: No prevertebral soft tissue swelling. Small calcifications seen within the ligamentum nuchae at the C6 level. OTHER FINDINGS: None. IMPRESSION: Limited study as described. No acute fractures. Multilevel degenerative spondylosis. Medical Decision Making Medical Decision Making: Plan: Blood work Cervical spine x-ray Flexeril, Solu-Medrol Reassess 0900 Patient reports pain is improving. He is able to move her neck more easily and pain free. He remains afebrile alert and oriented in no distress. He feels comfortable going home and will be discharged. Advised to follow up with primary Dr Stevenson in few days. Disposition Counseled Patient/Family Regarding: Diagnosis, Need For Followup, Rx Given - Disposition Referrals: Ady Stevenson MD [Staff Provider] - Disposition: HOME/ ROUTINE Disposition Time: 09:13 Condition: IMPROVED Additional Instructions: Rx sent to [facility] Apply heat to area for 15-20 minutes at a time 2-3 times per day You can take Tylenol or Motrin for pain every 6-8 hours as needed Take Flexeril for muscle pain and spasm every 6-8 hours as needed, caution can cause drowsiness Follow up with your primary medical doctor or clinic in 2-5 days for further evaluation Return to the emergency department at any time if symptoms persist or worsen. Prescriptions: Cyclobenzaprine [Cyclobenzaprine HCl] 10 mg PO TID #21 tab Instructions: Cervical Muscle Strain (DC) Forms: Compendium (Belizean) - POA Present On Arrival: None - Clinical Impression Clinical Impression: Cervical muscle strain, Thoracic back pain - PA / CIGARETTE MAKING EXAMINER / Resident Statement MD/DO has reviewed & agrees with the documentation as recorded. - Scribe Statement The provider has reviewed the documentation as recorded by the Margaretibe Trip Calderon All medical record entries made by the Bob were at my direction and personally dictated by me. I have reviewed the chart and agree that the record accurately reflects my personal performance of the history, physical exam, medical decision making, and the department course for this patient. I have also personally directed, reviewed, and agree with the discharge instructions and disposition.
[2017-08-19 08:22] LABS: ALT/SGPT < 6 U/L (21-72); AST/SGOT 27 U/L (17-59); BLOOD UREA NITROGEN 41 mg/dL (9-20); CALCIUM 9.1 mg/dl (8.6-10.4); GFR AFRICAN-AMERICAN 25; GFR NON-AFRICAN AMERICAN 20
[2017-08-19 08:33] LABS: ALB/GLOB RATIO 0.8 (1.0-2.1)
[2017-08-19 08:35] LABS: ALBUMIN 3.8 g/dL (3.5-5.0)
[2017-08-19 09:33] VITALS: BP 132/65; PULSE 74; RESP 18; TEMP 99
--- NOTE | 2017-08-19 11:31 | RAD ---
PROCEDURE: Cervical spine dated in 08/19/2017. AP, lateral, swimmer's and open-mouth views of the cervical spine performed. HISTORY: Atraumatic neck pain. COMPARISON: No prior study available comparison. . FINDINGS: BONES: Note that the inferior aspect of the C6, C6-C7 disc space and pole of the C7 and T1 vertebral body segments not visualized on the lateral projection due to overlying shoulder artifact. The segments are only partially visualized on swimmer's view. No evidence of acute compression compression or displaced fractures seen within limitation of the study. Vertebral bodies exhibit normal stature. Slight posterior subluxation of C3 over C4 and minimal anterior subluxation C5 over C6 felt to be degenerative in origin. . Vertebral bodies otherwise normally aligned DISC SPACES: Multilevel degenerative spondylosis. Changes include varying degrees of disc space narrowing, endplate eburnation as well as small anterior osteophyte formation. Changes most notably affect the C3-C4, C5-C6 and to a lesser degree C4-C5 levels. . The uncovertebral facet joints also hypertrophic throughout. SOFT TISSUES: No prevertebral soft tissue swelling. Small calcifications seen within the ligamentum nuchae at the C6 level. OTHER FINDINGS: None. IMPRESSION: Limited study as described. No acute fractures. Multilevel degenerative spondylosis.
[2017-08-19 12:46] VITALS: O2SAT 97
== END 2017-08-19 09:33 | disposition home or self-care (01) ==
LOC: C.ER 06:46
DX: S16.1XXA Strain of muscle, fascia and tendon at neck level, initial encounter (principal); I12.0 Hypertensive chronic kidney disease with stage 5 chronic kidney disease or end stage renal disease; N18.6 End stage renal disease; Z99.2 Dependence on renal dialysis; I50.9 Heart failure, unspecified
CPT/HCPCS: 72040; 80053; 85027; 96374; 99284; J2920